=== PATIENT | female | born 1970 | race Caucasian/White ===

== ENCOUNTER 2019-05-09 11:27 | Emergency (ER) | payer BC, SELFPAY ==
[2019-05-09 11:34] VITALS: BP 133/98; PULSE 80; RESP 16; TEMP 36.7; O2SAT 99
--- NOTE | 2019-05-09 11:48 | W.ED.GENAD ---
Discharge Plan Disposition Patient Disposition: HOME Condition: Stable Discharge Details Chief Complaint: EarProblem Clinical Impression: Otitis externa Primary Care Provider: Tiana Gross V ED Provider: Inocencio Ramos Home Meds and New Rx's Prescriptions: New Ciprodex 0.3-0.1 % drops,suspension 4 drp OT BID 7 Days Qty: 7.5 RF: 0 Continued dextroamphetamine-amphetamine 10 mg tablet 10 mg PO BID MDD 2 Qty: 60 RF: 0 multivitamin [Daily Vitamin] 1 EACH tablet 1 ea PO DAILY RF: 0 bupropion HCl [Wellbutrin SR] 150 mg tablet sustained-release 12 hr 150 mg PO DAILY Qty: 30 RF: 6 levothyroxine 50 mcg Tablet 50 mcg PO DAILY RF: 0 Discharge Instructions Instructions: Otitis Externa (ED) Additional Instructions: Please use provided eardrops for the full 7 days and return to emergency department immediately for any new or significant worsening of symptoms. Otherwise follow-up with your primary care provider if not improving Referrals: Tiana Gross MD [Primary Care Provider] - (As needed for reassessment or if not improving) Discharge Data Discharge Date/Time-TO BE ENTERED AT DEPARTURE: 05/09/19 11:58 Medical Decision Making Patient presenting to the emergency department for chief complaint of left ear pain. Patient states 1 week ago she was swimming in the ocean and felt like she got some water in her ear. She has used [id number] eardrops which have not helped. Physical exam shows findings consistent with otitis externa on the left ear. I do not think this is malignant otitis, HEENT exam is otherwise unremarkable patient put on Ciprodex and informed to follow-up with primary care if not improving or return for new or worsening symptoms. After discussion of diagnosis and plan of care patient has no further needs, questions, or concerns and states clear understanding to return to the emergency department for any worsening symptoms. HPI General Mode of arrival: ambulatory. Date/Time Provider Initiated Documentation: 05/09/19 11:39. Limitations to Documentation: no limitations. Information obtained by: patient and RN notes reviewed. History of Present Illness 49 year old F presents to the emergency department with the chief complaint of left ear pain, described as mild and moderate, with intensity rated at 2. Quality is described as aching, and is localized to the left. Patient started experiencing this week(s) (1) and it has been constant. No relieving factors improve symptom(s), Patient notes no other symptoms.. Related Data Home Medications Medication Instructions Recorded Confirmed multivitamin [Daily Vitamin] 1 ea PO DAILY 01/04/13 05/09/19 bupropion HCl 150 mg tablet,12 hr 150 mg PO DAILY #30 tab 10/19/18 05/09/19 sustained-release dextroamphetamine-amphetamine 10 10 mg PO BID #60 tab MDD 2 02/08/19 05/09/19 mg tablet ciprofloxacin-dexamethasone 4 drp OT BID 7 Days #7.5 ml 05/09/19 [Ciprodex] levothyroxine 50 mcg PO DAILY 05/09/19 05/09/19 Previous Rx's Medication Instructions Recorded bupropion HCl 150 mg tablet,12 hr 150 mg PO DAILY #30 tab 10/19/18 sustained-release dextroamphetamine-amphetamine 10 10 mg PO BID #60 tab MDD 2 02/08/19 mg tablet ciprofloxacin-dexamethasone 4 drp OT BID 7 Days #7.5 ml 05/09/19 [Ciprodex] Allergies Allergy/AdvReac Type Severity Reaction Status Date / Time Sulfa (Sulfonamide Allergy Severe Hives Unverified 05/09/19 11:37 Antibiotics) adhesive Allergy Intermediate RASH, Unverified 05/09/19 11:37 REDNESS, ITCHINESS hydrocodone bitartrate AdvReac Severe Nausea Unverified 05/09/19 11:37 [From Vicodin] oxycodone HCl [From Percocet] AdvReac Severe Nausea Unverified 05/09/19 11:37 General Stated Complaint: EarProblem MIKEY: 4 Review of Systems Constitutional Denies fever(s) and Denies headache(s) ENT Denies dizziness, Denies ear discharge, Reports otalgia, Denies facial pain, Denies headache(s) and Denies neck pain Musculoskeletal Denies neck pain Neurologic Denies dizziness and Denies headache(s) COUNTS INCLUDE 234 BEDS AT [facility] Medical History Attention deficit hyperactivity disorder Surgical History Endometrial Ablation (12/14/07) Social History (Reviewed 05/11/19 @ 08:46 by KYARA Aguilar Smoking/Tobacco Use Status: Never Alcohol Intake: current Alcohol Intake frequency: holidays/special occasions only Drug use: Never Do you feel safe at home: Yes Do you feel safe in your relationship?: Yes Exam Const General: cooperative, no acute distress and not ill appearing Orientation: alert, awake and oriented x3 HENMT Head: normal to inspection Ears: TM normal on the right, mastoids normal and EAC abnormal erythema on the left, edema on the left and EAC tenderness on the left; no excessive cerumen and no otic discharge General nose exam: external nose normal Face and sinus: normal facial exam Throat: posterior oropharynx normal, tonsils normal and uvula midline Resp Effort & Inspection: normal respiratory effort, able to speak in complete sentences and no respiratory distress Course Vital Signs Temperature 36.7 C 05/09/19 11:34 Pulse 80 05/09/19 11:34 Respiratory Rate 16 05/09/19 11:34 Blood Pressure 133/98 H 05/09/19 11:34 Pulse Oximetry 99 05/09/19 11:34 Temperature 36.7 C 05/09/19 11:34 Temperature Source Temporal Artery Scan 05/09/19 11:34 Pulse 80 05/09/19 11:34 Respiratory Rate 16 05/09/19 11:34 Respiratory Effort Non-Labored 05/09/19 11:39 Blood Pressure 133/98 H 05/09/19 11:34 Blood Pressure Position Sitting 05/09/19 11:34 Pulse Oximetry 99 05/09/19 11:34 Oxygen Delivery Method Room Air 05/09/19 11:34 Oxygen Flow Rate 0 05/09/19 11:34
[2019-05-09 11:58] VITALS: BP 133/98; PULSE 80; RESP 16; TEMP 36.7; O2SAT 99
== END 2019-05-09 11:58 | disposition home or self-care (01) ==
PROVIDERS: Emergency Provider Nurse Practitioner Family; PCP Family Medicine
DX: H60.502 Unspecified acute noninfective otitis externa, left ear (principal)
CPT/HCPCS: 99283

== ENCOUNTER 2019-08-17 07:59 | Outpatient (CLI) | payer BC, SELFPAY ==
[2019-08-17 09:25] LABS: Calculated LDL 135 mg/dL; Cholesterol 206 mg/dL (50-200); HDL Cholesterol 56 mg/dL (40-60); TSH 1.35 uIU/mL (0.36-3.74); Triglyceride 77 mg/dL (30-150)
[2019-08-17 09:35] LABS: Vitamin D 25 Total 19.5 ng/ml (30-100)
[2019-08-17 10:20] LABS: Hemoglobin A1C 5.7 % (4.5-6.2)
== END 2019-08-17 08:19 ==
PROVIDERS: PCP Family Medicine; Visit Provider Physician Assistant Medical
DX: Z00.00 Encounter for general adult medical examination without abnormal findings (principal); E03.9 Hypothyroidism, unspecified
CPT/HCPCS: 36415; 80061; 82306; 83036; 84443

== ENCOUNTER 2019-12-07 01:44 | Outpatient (CLI) | payer BC, SELFPAY ==
--- NOTE | 2019-12-07 | DI.MAMMO_ITS ---
EXAM: MG MAMMO SCREENING CLINICAL HISTORY: SCREENING, Z12.31, HEALTH MAINTENANCE, Z00.8 TECHNIQUE: Bilateral full field digital CC and MLO mammographic images were obtained with 3D tomosyn thesis and utilizing computer aided detection (CAD). COMPARISON: Available for comparison. FINDINGS: Masses/Architectural Distortion: None seen. Microcalcifications: No suspicious pleomorphic-type are seen. Skin Thickening/Nipple Retraction: None. IMPRESSION: 1. No significant interval change with no specific features of malignancy noted. 2. Unless there is more urgent need, screening mammography is recommended, as per [employer] [employer] guidelines. ACR BI-RAD Category- 1 Negative Breast Density - Category C - Heterogeneously dense The mammogram demonstrates the patient's breast tissue is dense. Dense breast tissue is very common a nd is not abnormal but dense breast tissue can make it harder to find cancer on a mammogram. Also, de nse breast tissue may increase their breast cancer risk. This information about the result of the [facility] mogram report was provided to the patient to raise their awareness. Use this report when you speak wi th the patient about their risks for breast cancer, which includes their family history. At that time , you may recommend for more screening tests (Ultrasound or MRI) as they might be useful based on the ir risk. A negative radiographic report should not delay biopsy if a dominant or clinically suspicious mass is present. Up to ten percent of cancers are not identified on mammography. A negative report may reinforce clinical impression. Adenosis and dense breasts may obscure an underlying neoplasm. False positive reports average 6 to 10%. Patient will receive a letter notifying them of these results.
== END 2019-12-07 02:04 ==
PROVIDERS: PCP Family Medicine; Visit Provider Physician Assistant Medical
DX: Z12.31 Encounter for screening mammogram for malignant neoplasm of breast (principal); Z00.00 Encounter for general adult medical examination without abnormal findings
CPT/HCPCS: 77063; 77067

== ENCOUNTER 2020-09-16 02:11 | Outpatient (CLI) | payer BC, SELFPAY ==
[2020-09-16 09:05] LABS: Calculated LDL 139 mg/dL (<100); Cholesterol 207 mg/dL (<200); HDL Cholesterol 47 mg/dL (40-60); Triglyceride 105 mg/dL (<150)
[2020-09-16 09:16] LABS: Vitamin D 25 Total 21.5 ng/ml (30-100)
[2020-09-16 09:23] LABS: Hemoglobin A1C 5.4 % (<5.7)
== END 2020-09-16 02:31 ==
PROVIDERS: PCP Family Medicine; Visit Provider Physician Assistant Medical
DX: Z00.00 Encounter for general adult medical examination without abnormal findings (principal); R73.03 Prediabetes; E03.9 Hypothyroidism, unspecified; E55.9 Vitamin D deficiency, unspecified; Z13.220 Encounter for screening for lipoid disorders
CPT/HCPCS: 36415; 80061; 82306; 83036; 84443

== ENCOUNTER 2021-10-08 12:12 | Outpatient (REF) | payer BC, SELFPAY ==
[2021-10-08 20:14] LABS: Hemoglobin A1C 5.7 % (<5.7)
[2021-10-08 20:25] LABS: ALT 76 U/L (14-59); AST 40 U/L (15-37); Albumin 4.1 g/dL (3.4-5.0); Alkaline Phosphatase 121 U/L (46-116); BUN 16 mg/dL (7-18); Bilirubin, Total 1.2 mg/dL (0.2-1.0); CREATININE 0.9 mg/dL (0.55-1.02); Calcium 9.1 mg/dL (8.5-10.1); Calculated LDL 168 mg/dL (<100); Chloride 105 mmol/L (98-107); Cholesterol 244 mg/dL (<200); Glucose 95 mg/dL (74-106); HDL Cholesterol 50 mg/dL (40-60); Potassium 4.6 mmol/L (3.5-5.1); Sodium 142 mmol/L (136-145); TSH 1.21 uIU/mL (0.36-3.74); Total Protein 7.7 g/dL (6.4-8.2); Triglyceride 133 mg/dL (<150)
[2021-10-09 00:46] LABS: Vitamin D 25 Total 22.7 ng/mL (30-100)
== END 2021-10-08 12:13 | disposition home or self-care (01) ==
LOC: NCHCN 12:12
PROVIDERS: PCP Family Medicine; Visit Provider Physician Assistant Medical
DX: E03.9 Hypothyroidism, unspecified (principal); E55.9 Vitamin D deficiency, unspecified; R73.03 Prediabetes
CPT/HCPCS: 80053; 80061; 82306; 83036; 84443

== ENCOUNTER 2022-08-28 04:38 | Emergency (ER) | payer BC, SELFPAY ==
--- OUTSIDE RECORDS SUMMARY | 2022-08-28 04:44 | XMS_ITS | Clinical Summary ---
:1970 Author Organization [facility] Address [address] [place] [address] Care Team Providers Name Role Phone Unknown, Provider Primary Care Provider Social History Tobacco Use Types Packs/Day Years Used Date Smoking Tobacco: Never Assessed Sex Assigned at Date Recorded Not on file Plan of Treatment Health Maintenance Due Date Last Done Comments Hepatitis C Screen 1970 COVID-19 Vaccine (#1) 1970 Care Teams Construction Analyst Relationship Specialty Start Date End Date Unknown, Provider, PCP - General 04/17/13
--- OUTSIDE RECORDS SUMMARY | 2022-08-28 04:44 | XMS_ITS | Encounter Summary ---
:1970 Author Organization [facility] Address [address] [place] [address] Care Team Providers Name Role Phone Faustina Palafox MD Primary Care Provider Encounter Details Date Type Department Care Team Description 02/22/2013 Results Only [facility] Margarita Guerrier MD Laboratory Services - [address] [place] [address] [place] [address] [place] [address] [phone] Social History Tobacco Use Types Packs/Day Years Used Date Smoking Tobacco: Never Assessed Sex Assigned at Date Recorded Not on file documented as of this encounter Plan of Treatment Not on filedocumented as of this encounter Procedures Procedure Name Priority Date/Time Associated Diagnosis Comme [facility] SURGICAL PATHOLOGY Routine 02/22/2013 21:36 Resul ts for this EDT procedure are i n the results section. documented in this encounter Results SURGICAL PATHOLOGY (02/22/2013 21:36 EDT) Component Value Ref Test Analysis Performed At [facility] Method Time Signature Pathology SURGICAL PATHOLOGY REPORT HANNAH FONG Report: Reports generated via electronic interface contain irene l data; TK RANGEL however they are lacking the format of the original report. Caution should be taken when reading/interpreting unformatte d reports. Name: ? ANGEL MERINO ? Accession #: ? [id number] ? : ? 1970 (Age: 42) ??F ? Collect Date: ? 02/22/2013 ? Location: ? [facility] ? Receive Date: ? 02/22/2013 ? Provider: MARGARITA GUERRIER MD Copy to: FAUSTINA PALAFOX MD ? Final Pathologic Diagnosis: ? Uterus, supracervical hysterectomy: 1. ?Endometrium: ? - Secretory endometrium. ? 2. ?? Myometrium: ?- No specific pathologic features. 3. ?? Serosa: ?- No specific pathologic features. ?? 4. ?? Fallopian tube: ?- No specific pathologic features. ?? Document reviewed and electronically signed by: KARI AHUMADA MD Report ??Date: 02/24/2013 14:58 By the signature above, the attending physician certifies th at he/she has personally conducted a gross and/or microscopic examin ation of the described specimens and rendered or confirmed the above diagnosis. Specimen(s) Received: ? Supracervical uterus Clinical History: ? Menorrhagia; dysmenorrhea Gross Description: ? Received in formalin labelled Angel Merino and supracervical uterus is a 116 gram aggregate of morcellated uterine tissue. ?? Cervix is not present. There is a 1.5 cm in length by 0.5 cm in diameter segment of proximal fallopian tube without fimbria of indeterminate laterality . ??The serosa is pink-bobo to pink-white and smooth. ??The endometrium is pink -bobo, soft and lush and has a maximum thickness of 0.5 cm. ??The myometrium is pink-bobo an d finely trabeculated. ??No discrete nodules are identified within the myometrium. ??The portion of fallopian tube has bobo-purple, smooth serosa an d a bobo-white cut surface with a pinpoint lumen. ??Uniform Force Captain sections are submitted as follows: BLOCK DUTTON 1, 2 ?Endometrium to myometrium 3 ?Myometrium and serosa 4 ?Cross sections of fallopian tube (L. [place])/mpl End of Report Specimen Anatomical Collection Method Collection Time Receive d Time (Source) Location / / Volume Laterality 02/22/2013 21:36 02/22/2013 EDT 21:36 EDT Margarita Guerrier MD PATHOLOGY ORDERABLES Performing Organization Address City/State/ZIP Code Phon e Number [facility] [address] [place] [address] SERVICES [facility] [address] [place] [address] documented in this encounter Visit Diagnoses Not on filedocumented in this encounter Care Teams Applications Systems Engineer Relationship Specialty Start Date End Date Faustina Palafox MD PCP - General 01/09/11 04/16/13 [facility] [address] [place], [place] [id number] documented as of this encounter
--- OUTSIDE RECORDS SUMMARY | 2022-08-28 04:44 | XMS_ITS | Encounter Summary ---
:1970 Author Organization [facility] Address [address] [place] [address] Care Team Providers Name Role Phone Faustina Palafox MD Primary Care Provider Encounter Details Date Type Department Care Team Description 12/16/2011 Results Only [facility] Faustina Palafox MD [phone] [address] [place], [place] [address] (Wo rk) Social History Tobacco Use Types Packs/Day Years Used Date Smoking Tobacco: Never Assessed Sex Assigned at Date Recorded Not on file documented as of this encounter Plan of Treatment Not on filedocumented as of this encounter Procedures Procedure Name Priority Date/Time Associated Diagnosis Comme nts PAP TEST- RESULT Routine 12/16/2011 0:00 EDT Resu lts for this ONLY procedure are i n the results section. documented in this encounter Results PAP TEST- RESULT ONLY (12/16/2011 0:00 EDT) Component Value Ref Test Analysis Performed At [facility] Method Time Signature Pathology CYTOPATHOLOGY REPORT ANIYA Report: [facility] Reports generated via electronic interface contain original data; however they are lacking the format of the original report. Caution should be taken when reading/interpreting unformatte d reports. Name: ? ANGEL MERINO ? Accession #: ? [id number] ? : ? 1970 (Age: 41) ??F ?Collect Da te: ? 12/16/2011 ? Location: ? [facility] ? Receive Date: ? 12/17/2011 ? Provider: FAUSTINA PALAFOX MD Copy to: ? Final Report SPECIMEN ADEQUACY ? Satisfactory for Evaluation - transformation zone component present GENERAL CATEGORIZATION ? Negative for Intraepithelial Lesion or Malignancy INTERPRETATION ? Reactive cellular angella nges associated with inflammation present (includes repair). Last Menstural Period: mid Nov. Specimen/Source: ??Pap Test, Cervix/Endocervix, ThinPr ep Imaging System with manual evaluation Document reviewed and electronically signed by: ? LOUIE VALVERDE [facility] ? Report ??Date: 12/22/2011 11:50 HPV with Pap Test ? Date Ordered: ? 12/22/2011 ? Status: ?? Eve d Out ?Date Complete: ? 12/24/2011 ? By: ??System Interface ? Date Reported: ? 12/24/2011 ? Interpretation RESULT: Negative for HPV types 16, 18, 31, 33, 35, 39, 45, 5 1, 52, 56, 58, 59, and 68. Comments Document reviewed and electronically signed by: ? System Interface ? Report date: 12/24/2011 By the signature above, the attending physician certifies th at he/she has personally conducted a gross and/or microscopic examin ation of the described specimens and rendered or confirmed the above diagnosis. End of Report Specimen (Source) Anatomical Location Collection Method / Collectio n Time Received Time / Laterality Volume 12/16/2011 12/17/2011 Faustina Palafox MD PATHOLOGY ORDERABLES Performing Organization Address City/State/ZIP Code Phon e Number [facility] [address] [place] [address] SERVICES [facility] [address] [place] [address] documented in this encounter Visit Diagnoses Not on filedocumented in this encounter Care Teams Insurance Sales Agent Relationship Specialty Start Date End Date Faustina Palafox MD PCP - General 01/09/11 04/16/13 [facility] [address] [place], [place] [address] documented as of this encounter
--- OUTSIDE RECORDS SUMMARY | 2022-08-28 04:44 | XMS_ITS | Encounter Summary ---
:1970 Author Organization [facility] Address [address] [place] [address] Care Team Providers Name Role Phone Faustina Grant MD Primary Care Provider Encounter Details Date Type Department Care Team Description 03/23/2011 Results Only [facility] Faustina Grant MD Laboratory Services - [facility] [address] [place], [place] [address] [place] [address] [phone] Social History Tobacco Use Types Packs/Day Years Used Date Smoking Tobacco: Never Assessed Sex Assigned at Date Recorded Not on file documented as of this encounter Plan of Treatment Not on filedocumented as of this encounter Procedures Procedure Name Priority Date/Time Associated Diagnosis Comme [facility] SURGICAL PATHOLOGY Routine 03/23/2011 0:00 EDT Re sults for this procedure are i n the results section. documented in this encounter Results SURGICAL PATHOLOGY (03/23/2011 0:00 EDT) Component Value Ref Test Analysis Performed At [facility] Method Time Signature Pathology SURGICAL PATHOLOGY REPORT ? NANETTE HER Report: Reports generated via electr [employer] interface contain original data; ? TK RANGEL however they are lacking the format of the original report. ? Caution should be taken when reading/interpreting unformatted reports. ? Name: ? ANGEL MERINO A ? Accession #: ? [id number] ? : ? 1970 (Age: 40) ??F ? Collec t Date: ? 03/23/2011 ? Location: ? [facility] ? R eceive Date: ? 03/24/2011 ? Provider: FAUSTINA READY MD ? Copy to: ? Final Pathologic Diagnosis: ? A. ?Skin of leg , left anterior, punch biopsy: ? 1. ?Melanocytic nevus, junctional type, with unusual architectural ? features and mild cytologic atypia. ? - Melanocytic nevus d oes not extend to biopsy edges in the plane of ? sections examined. ?- Melanocytic nevus measu res approximately 0.6 mm to the nearest peripheral ?? edge. ? B. ??Skin of arm, lef t upper, punch biopsy: ? 1. ?? Dermatofibroma. ? Microscopic Description: ? (A) ?The epider mis is hyperplastic with elongate and anastomosing rete ?? ridges. ??There is a circums cribed proliferation of melanocytes within the ? epidermis that consists of n ests and individual cells in a lentiginous pattern. The nests predominate and va ry in size, shape, and spacing. ??Some of the nests ?? bridge between rete ridges. ??Although the individual melanocytes are unevenly ?? spaced in some areas, they s how no tendency toward confluent growth or upward ?? migration. ??The melanocytes are enlarged and show a mild degree of nuclear size and shape variation. ??There is papillary dermal fibroplasia. ??Deeper levels have been examined. ? (B) ?There is i rregular epidermal hyperplasia with basal ? hyperpigmentation. ??Within the dermis, there is a spindle cell proliferation ? accompanied by histiocytes. ??The spindle cells have plump nuclei that vary to a mild degree in size and shap e. ??The proliferation is associated with thick ? bundles of collagen (collag en trapping) and areas of sclerosis. ??(. ? Busch)/mpl ? Document reviewed and electr onically signed by: ? DK BUSCH MD ? Report ??Date: 03/25/2011 16 :28 ? By the signature above, the attending physician certifies that he/she has ? personally conducted a gross and/or microscopic examination of the described ? specimens and rendered or co nfirmed the above diagnosis. ? Specimen(s) Received: ? A. ?Left leg an terior ? B. ? Left upper arm ? Clinical History: ? A ??irregular bordere d macular brown lesion, atypical nevus; B ??appears to ?? be irritated dermatofibroma vs. SK, not sure, cannot exclude SCC clinically ? Gross Description: ? Received in formalin labelled Angel Merino and #1 L leg is a circular punch biopsy of bobo-white sk in measuring 0.5 cm in diameter and 0.3 cm in ? thickness. ??There is an ecc entric 0.4 x 0.3 cm irregular brown macule. ??The ? specimen is bisected and ent irely submitted as (A). ? Received in formalin harjit d Wilber Angel and #2 L upper arm is a circular punch biopsy of bobo-white sk in measuring 0.6 cm in diameter and 0.4 cm in ? thickness. ??There is a cent ral 0.3 x 0.3 by less than 0.1 cm circular, firm, ? bobo-white, crusted papule. ? ?The specimen is bisected and entirely submitted as ?? (B). ??(Fred Dinh/aminata ? End of Report ? Specimen (Source) Anatomical Collection Method Collection Time Re ceived Time Location / / Volume Laterality 03/23/2011 03/24/2011 8:49 EDT Faustina Ready MD PATHOLOGY ORDERABLES Performing Organization Address City/State/ZIP Code Phon e Number [facility] [address] [place] [id number] SERVICES [facility] [address] [place] [address] documented in this encounter Visit Diagnoses Not on filedocumented in this encounter Care Teams Butt Maker Relationship Specialty Start Date End Date Faustina rGant MD PCP - General 01/09/11 04/16/13 [facility] [address] [place], [place] [address] documented as of this encounter
[2022-08-28 04:45] VITALS: BP 150/72; PULSE 103; RESP 22; TEMP 37.2
--- NOTE | 2022-08-28 04:45 | RT.EKG_ITS ---
APPROVED REPORT Exam: Resting ECG Reason for Exam: difficulty breathing Patient Location: E HR:96 bpm ECG Measurements Heart Rate [address] 167 P 65 QRSd 82 QRS 50 QT 334 T -7 QTc 423 Conclusion Sinus rhythm...normal P axis, V-rate 60- 99 Low voltage, precordial leads...precordial leads <1.0mV
--- OUTSIDE RECORDS SUMMARY | 2022-08-28 04:45 | XMS_ITS | Encounter Summary ---
:1970 Author Organization [facility] [place] [address] Care Team Providers Name Role Phone Dana Jiménez Primary Care Provider Reason for Visit Reason Comments Skin Check Referral states: full skin evaluation Consultation (Routine) - Closed Specialty Diagnoses / Procedures Referred By Contact Refer red To Contact Dermatology Diagnoses Full skin Cuco Mccray, DPM [facility] Dermatology [address] [facility] [address] [place] [id number] Referral ID Status Reason Start Date Expiration Date Visits V isits Requested Authorized [id number] Closed Consult, 08/07/2016 08/07/2017 1 1 [facility] Encounter Details Date Type Department Care Team Description 08/13/2016 Office Visit Dermatology at [facility], Skin exam, screening for cancer; Fredrick CRAIG 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 In fact, most skin cancers are found in locations where sun exposure is highest (e.g., face, ears, and hands). Furthermore, UV exposure is associated with skin aging, including wrinkles, brown spots, and leathery skin. Recommendations ?? Generously apply a broad-spectrum water-resistant sunscreen with a Sun Protection Factor (SPF) of30 or more to all exposed skin. ?? Reapply sunscreen every 2 hours, even on cloudy days, and after swimming or sweating. ?? Preferred sunscreens: Sunscreens work by either forming a physical or a chemical barrier to ultraviolet light. Zinc oxide or Titanium dioxide are physical barriers to the sun. We recommend sunscreens that contain at least one physical barrier. Look for these brands: Neutrogena, Blue Lizard, [place] Baby, Festus Myers MD. ?? Wear protective clothing. Long-sleeved shirts, pants, a wide-brimmed hat and sunglasses are all excellent choices. Some companies produce great, breathable SPF clothing (Coolibar, [employer] S[employer]uent[employer], Wednesday Afternoons) ?? Seek shade. The sun's rays are strongest between 10a.m. And 4 p.m. Dry Skin Care Dry skin is more problematic in the winter, when the humidity is lower. Taking measures to maintain the skin's moisture will decrease dryness and itching. Recommendations ?? Bathe in lukewarm water. Wash the skin gently (avoid vigorous scrubbing); use Dove or CeraVe soapto wash dirty areas. Avoid harsh soaps such as Ethiopian Spring, Ivory, or Dial as these can be drying. ?? Immediately after bathing, apply a bland, preferably fragrance-free moisturizer to your skin. Ointments work better than creams, which work better than lotions. Look for the following brands: Vaseline 100% petroleum jelly, Vanicream, Neutrogena, CeraVe, Cetaphil, Aveeno, Lubriderm, or Eucerin. ?? For itchy areas, you can apply hydrocortisone 1% cream (oxfk-wav-iybcnlb product) for 1-2 weeks. Do not use this medication on your face. Skin Cancer screening The incidence of skin cancer has increased dramatically in the past 20 years. The most common skin cancer types include basal cell carcinoma and squamous cell carcinoma. These often look like new moles, and they might be tender, scaly, or prone to bleeding. The most deadly form of skin cancer is melanoma, and it can affect people of all ages and skin types. Recommendations ?? We recommend performing a skin self-examination monthly to become familiar with your moles. This will help you to detect new or changing moles earlier. ?? Remember the ABCDE's of melanoma: ?? Asymmetry - Melanoma tends to grow in an asymmetric (uneven) fashion ?? Border - The border in melanoma tends to be uneven or jagged ?? Color - Melanomas often have different colors (e.g., dark brown, black, red) ?? Diameter - Look for moles that are larger than 0.6 cm (the size of a pencil eraser) ?? Evolution - This is perhaps the most important feature. Any mole that is rapidly growing or changing should be evaluated. documented in this encounter Progress Notes oRsanne Araujo W - 08/13/2016 10:15 AM EST Images from the original note were not included. DERMATOLOGY - NEW PATIENT NOTE Date of service: 08/13/2016 Haritha Merino : 1970 Dermatology Resident Note: Rosanne Araujo M.D. Chief Complaint: 2nd opinion on melanoma in situ HPI: Haritha Merino is a 46 y.o. female. This is a new patient to me. Seen in consultation at the requestof Cuco Khan DPM - Assistant Facility Manager, specifically for the evaluation and management of the above problem. She recently had a biopsy done on a small dark spot on the left great toe that showed melanoma insitu. The spot had been there for about 2 years, but it was changing, prompting her wire insulator to perform a biopsy. She discussed treatment options with the Dr. Khan, who discussed the need for a 5mmmargin of uninvolved skin to adequately treat the MIS. His clinical note states, Because the lesionpractically abuts the nail plate it will be difficult to resect sufficient soft tissue to ensure thelesion has been cleared. I did indicate that we can avulse the nailplate and ablate as needed. An Alternative is to disarticulate the great toe at the IPJ level. Haritha is wondering if she needs to have a disfiguring surgery in order to treat the MIS or if she can be treated with MOHS. She is also wondering if she needs to have a PET scan. She denies a personal or family history of pancreatic or ovarian cancer. No one in her family has had melanoma. Her aunt and great aunt both had breast cancer. She also presents today for a full skin exam. She states concern about one lesion on the right upperarm. Present for about one month. Asymptomatic, but does not seem to be healing well. Denies any other lesions of concern today, nothing bleeding on its own, tender, scaling, growing, orchanging. Relevant Medical History: Yes/No If yes (date, subtype, location, treatment) Melanoma Yes - left hallux - Melanoma in situ Dysplastic nevi No SCC No BCC No AK No Eczema/Psoriasis No Immunosuppression or Malignancy No History of blistering sunburn ? Probably Other No Procedure Screening Questions: Yes/No If Yes, details Defibrillator/Pacemaker No Artificial Joints No Heart Valves No Blood Thinners No Prophylactic Antibiotics No How to reach with results Home # Okay to leave message Relevant Family History: Yes/No If yes, who (mom/dad/sibling/child) Melanoma No SCC No BCC No Psoriasis or Eczema No Other No Maternal aunt and great aunt with breast cancer. Medications: No current outpatient prescriptions on file prior to visit. No current facility-administered medications on file prior to visit. Allergies: Allergies Allergen Reactions ??? Sulfa (Sulfonamide Antibiotics) Hives ??? 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 Skin Type: III. Patient was asked to disrobe to the level of comfort. Examination of the head - including the scalp,face, ears, nose, lips, tongue, oral mucosa - neck, chest, abdomen, back, axillae, buttocks, pubic area, upper and lower extremities, including the nail plates, was performed. Photographs obtained with patient's permission: Pertinent Exam Findings/Assessment/Plan: 1. 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 On examination today is a well healing biopsy site on the left medial dorsal hallux 3-4 mm proximal to the nailfold. No evidence of residual pigment on dermoscopy. I reviewed the pathology report, confirming MIS. Report states there is no involvement of the dermis. We discussed that 5mm is an appropriate margin to treat MIS. Based upon the clinical documentation, I do not know the size of the original MIS, and whether the biopsy was an excisional biopsy or an incisional biopsy. However, amputation of the hallux is likely not necessary, and I think it might be possible to avoid avulsing the nail and going into the matrix. I would value the opinion of Dr. Espinoza, our Mohs surgeon, regarding the depth for the excision, the necessity to go into the nail matrix, and whether MOHS is an option given the location. I attempted to speak with him during the visit however he is out of town. I will talk with Dr. Espinoza upon his return and call Ms. Merino with my final recommendation. 2. Benign melanocytic nevi: Approximately sixty 2-4 mm brown macules scattered on the back, chest, upper and lower extremities. One nevus on the central back is slightly darker, but with regular pigment network under dermoscopy. See photos above. Will monitor this spot. RTC in 6 months for FBSE. Instructed to call for questions, concerns. I am documenting this encounter acting as the scribe for and in the presence of Dr. Araujo. Dottie Henley, CORPORATE REAL ESTATE MANAGER I performed the above scribed service and agree with the accuracy of the documentation in this encounter. Rosanne Araujo M.D. Dermatology Resident [facility] Patient seen and evaluated with staff chemical equipment controller: Sarah Christensen MD Section of Dermatology [facility] Sarah Christensen MD - 08/13/2016 10:15 AM EST I directly supervised Dr. Rosanne Araujo during this office visit. Dr. Araujo presented the history and physical exam to me. I then saw and examined this patient with Dr. Araujo. We reviewed the history and pertinent details and I confirmed the physical findings. I agree with the details of the history and physical exam as documented in Dr. Araujos note. 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
--- OUTSIDE RECORDS SUMMARY | 2022-08-28 04:45 | XMS_ITS | Encounter Summary ---
:1970 Author Organization [facility] [place] [address] Care Team Providers Name Role Phone Dana Jiménez Primary Care Provider Reason for Visit Reason Comments Follow Up Surgery FTSG to left big toe Encounter Details Date Type Department Care Team Description 09/21/2016 Clinical Support Plastic Surgery at [facility] [place] [address] Social History Tobacco Use Types Packs/Day Years Used Date Smoking Tobacco: Never Smokeless Tobacco: Never Sex Assigned at Date Recorded Not on file documented as of this encounter Patient Instructions Patient InstructionsBriana Izaguirre RN - 09/21/2016 2:00 PM EST 1. Change toe dressing every other day for 2 weeks more. Aquaphor, adaptic, dry gauze and coban wrap. 2. Aquaphor to thigh incision line. Scar massage to thigh incision line starting in 2 weeks. 3. May return to work next Wednesday09/30/16. 4. May get wet in the shower in 1 week. -SCAR MASSAGE TECHNIQUE: to begin 4-6 weeks following surgery What is a scar? When an injury occurs, the body immediately begins to repair itself & the area becomes swollen & sore. Eventually small collagen fibers form, becoming a solid tissue that results in a scar. This scar will continue to change in appearance for 1-2 years. Ideally, a scar is smooth & flat, blending in with the surrounding skin. However, some scars may become highly visible & unattractive d ue to factors such as your age, scar location & size, nutrition, genetics, or infection. A hypertrophic scar occurs when there is an excess production of collagen tissue that is elevated but remains within the wound boundaries. The scar is tense, red, & can be associated with itching & tenderness. A hypertrophic scar can be ordinary (usually stabilizes in 3 months & may even get smaller and smoother) or keloid. The keloid scar invades nearby tissue that was not part of the original wound, tends to enlarge even after 6 months & does not get softer. Will scar massage make my scars disappear? Nothing can make scars disappear. However, massaging the scar assists the body in breaking down the scar tissue to give it a flatter, softer, appearance. Massage also mobilizes the scar, preventing it from adhering to underlying tissue, tendons, & nerves. You can make the greatest difference in the appearance of the scar if you massage it in the first 3 months. What should I use on my scars? You will hear many recommendations. This clinic finds that it is the massage itself that reduces thescar & not necessarily the choice of ointments or creams. We do discourage the use of Vitamin E oil, however, due to studies that have reported scar inflammation & deterioration. How do I massage my scars? Generously apply the lotion or cream into the scar 3-4 times a day for 8 weeks on new scars, and 3-4times per day for 3 to 6 months on existing scars. Using your finger, apply pressure to the scar in a crosswise & circular direction, bearing down as hard as tolerated. Remember to protect your scar from the sun, especially in the first 6-12 months, by using a moisturizer with sunblock and wearing a physical barrier (ie: a hat) when possible documented in this encounter Progress Notes Briana Izaguirre RN - 09/21/2016 2:00 PM EST Images from the original note were not included. Reason for Visit: Postoperative Evaluation s/p Moh's repair left great toe with FTSG 09/11/16 for follow up visit. Subjective:I've had no pain and never took anything for pain. Objective:Dressing removed from left great toe. Graft with 100% take, no redness, swelling or drainage. Incision line left thigh donor site, intact and well approximated. Pt seen by Dr. Bruce. Redressedwith Aquaphor, adaptic, 3X3 gauze and coban wrap. Instructed to change every other day. Aquaphor to be applied to left thigh incision line. Complications: none Assessment: No signs of infection, or excessive swelling Plan: Reviewed post op instructions, including activity limitations, increase protein in the diet, signs of infection and correct phone numbers to call us for concerns. May return to work next week the th per Dr. Bruce. Supplies given:adaptic and coban VNA:n/a documented in this encounter Plan of Treatment Not on filedocumented as of this encounter Visit Diagnoses Diagnosis Surgery follow-up Follow-up examination, following unspeci fied surgery documented in this encounter Care Teams Radio Producer Relationship Specialty Start Date End Date Dana Jiménez PA PCP - General 01/30/15 05/21/20 [address] [place] [address] documented as of this encounter
--- OUTSIDE RECORDS SUMMARY | 2022-08-28 04:45 | XMS_ITS | Encounter Summary ---
:1970 Author Organization [facility] [place] [address] Care Team Providers Name Role Phone Dana Jiménez Primary Care Provider Reason for Visit Auth/Cert Specialty Diagnoses / Procedures Referred By Contact Refer red To Contact Diagnoses Melanoma in situ, unspecified melanoma in situ great toe Procedures PRO FULL THICK GRFT HEAD, FAC, HAND <20SQC PRO SPLIT GRFT, HEAD, FAC, HAND, FEET <100SQCM PRO FORM SKIN PEDICLE FLAP FACE, GEN, HAND FTSG, FREE, W/ CLOSURE DONOR SITE, 20 SQ CM OR LESS, FEET Referral ID Status Reason Start Date Expiration Date Visits Requ ested Visits Authorized [id number] 1 1 Encounter Details Date Type Department Care Team Description 09/11/2016 Anesthesia Event Outpatient Surgery Inez Katz MD [facility] [place] [address] [place] [address] [phone] Anesthesia Record Procedure Summary Procedure Name Responsible Anesthesia Start Anesthesia Stop Time Anesthesiologist Time SHU, SEVERINO W/ Aisha Katz MD 09/11/16 1122 09/11/16 121 0 CLOSURE DONOR SITE, 20 SQ CM OR LESS, FEET (VU 10.41) (Left: Foot) Events Date Time Event Comment 09/11/2016 1122 Start 1123 1125 AN Verify 1125 An Start Data 1129 An Induction 1130 An Intubation 1132 Anesthesia Ready 1202 Extubation/LMA Out 1206 an stop data 1210 Recovery or ICU Handoff Patient care was transferred to the destination unit staff after review of the patient's medica l history, current anesthetic/surgi jerrica status and plan, according to the Provider Handoff Checklist. 1210 Stop Name Total Midazolam 2 mg fentaNYL 100 mcg IV Lidocaine 50 mg Propofol 400 mg Ondansetron 8 mg Dexamethasone 8 mg Propofol INF 495.5 mg ceFAZolin (ANCEF) 2 gram/50 mL infusion 2 g lactated ringers infusion 1,000 mL 750 mL Agents Name O2 Air N2O Sevoflurane (et) Blood No blood administrations on file. Lines, Drains, and Airways Type Details Placement Removal Incision 09/11/16; first toe; 09/11/16 0000 by Nguyen, 05/05 06/25 1715 by 06/01/22 (LDA cleanup SHELIA Garza Di erdre L utility RA#[id number]); 1715 (LDA cleanup utility RA#[id number]) Incision 09/11/16; thigh; 06/01/22 09/11/16 0000 by Nguyen, 06/01/22 1715 by (LDA cleanup utility SHELIA Garza Die rdre L RA#[id number]); 1715 (LDA cleanup utility RA#[id number]) PIV 09/11/16; 1104; metacarpal 09/11/16 1104 by Madina crowell, 09/11/16 1310 by Car, vein (top of hand), right; SHELIA Grady, RN [id number] catheter system; 20 gauge, 1 in length; 0; 09/11/16; 1310 Supraglottic Mask Ventilation: Not 09/11/16 1130 by 09/11/16 1202 by Attempted (0); LMA Type: Rhonda Davis CRNA T Rhonda powers CRNA iGel; LMA Size: 3; Inserted by: Rhonda L Ticknor GERMAN PROFESSOR documented in this encounter Social History Tobacco Use Types Packs/Day Years Used Date Smoking Tobacco: Never Smokeless Tobacco: Never Sex Assigned at Date Recorded Not on file documented as of this encounter OR Notes Anesthesia Postprocedure Evaluation - Aisha Katz MD - 09/11/2016 1:13 PM EST [facility] [place] Department of Anesthesiology Post-procedure Note Patient: Haritha Merino Procedure Summary Date Anesthesia Start Anesthesia Stop Room / Location 09/11/16 1122 1210 [facility] OR [address] [place] [address] [facility] Procedure Diagnosis Surgeon Responsible Provider FTSG, FREE, W/ CLOSURE DONOR SITE, 20 SQ CM OR LESS, FEET (Left Foot) (melanoma in situ great toe) Aldo Bruce MD Welch, Marnie B, MD All Anesthesia Providers: Anesthesiologist: Aisha Kazt MD GERMAN PROFESSOR: Rhonda Davis CRNA Last (1hr) Vitals: BP 119/74 (09/11/16 1222) Temp Pulse 85 (09/11/16 1222) Resp 18 (09/11/16 1222) SpO2 96 % (09/11/16 1242) Patient Location: PACU/[facility] Level of Consciousness: Awake and Alert Pain Management: Satisfactory Analgesia PONV: None Cardiovascular Status: At Baseline and Hemodynamically Stable Respiratory Status: At Baseline and Room Air Postoperative Fluid Status: Intravascular EUvolemia Possible Anesthetic Complications: NONE apparent at time of evaluation Final Primary Anesthesia Type: General (The anesthetic type performed was the same as planned.) Comments: No issues post op AISHA KATZ MD Anesthesia Preprocedure Evaluation - Aisha Katz MD - 09/10/2016 5:06 PM EST Pre-Anesthesia Evaluation for: Haritha Merino a 46 y.o. female. Procedure(s): FTSG, FREE, W/ CLOSURE DONOR SITE, 20 SQ CM OR LESS, FEET SPLIT THICKNESS SKIN SPLIT GRAFT,100SQ CM OR LESS, FEET FLAP, PEDICLE,W OR W/O TRANSFER, FEET Patient Active Problem List Diagnosis ??? Melanoma in situ No past medical history on file. No past surgical history on file. Social History Substance Use Topics ??? Smoking status: Never Smoker ??? Smokeless tobacco: Never Used ??? Alcohol use Not on file History Drug Use Not on file Allergies Allergen Reactions ??? Sulfa (Sulfonamide Antibiotics) Hives ??? Tape 1X5yd [Adhesive Tape] Dermatitis irritation Medications: MAR and/or home medications have been reviewed. Physical Exam: There were no vitals filed for this visit. There is no height or weight on file to calculate BMI. Airway Assessment: Mallampati: III TM distance: >3 FB Neck ROM: full Cardiovascular Assessment: Rhythm: regular Pulmonary Assessment: breath sounds clear to auscultation Dental Assessment: Misc Assessment: IV access: Peripheral line Anesthesia Plan: ASA 2 general, with a(n) intravenous induction 46 y/o here for FTSG w/ closure , possible STSG , flap, onto melanoma in situ great toe, s/p Moh's reconstruction PMH: ADHD, depression, obesity PSH: Hysterectomy, lap che, no issues with anesthesia Plan : General LMA The patient was informed of the risks of anesthesia, and consent was obtained. The risks of anesthesia include, but are not limited to, PONV, pain, sore throat, and other rare but serious complicationssuch as major organ damage, allergies, blood transfusions, intraoperative awareness, and dental/lip trauma. Region - Other Informed Consent: Anesthetic plan and risks discussed with patient. Plan discussed with GERMAN PROFESSOR. [facility] Staff Note documented in this encounter Plan of Treatment Not on filedocumented as of this encounter Visit Diagnoses Not on filedocumented in this encounter Administered Medications Inactive Administered Medications - up to 3 most recent administrations Medication Order MAR Action Action Date Dose Rate Site ceFAZolin (ANCEF) 2 gram/50 mL Given 09/11/2016 11:22 AM EST 2 g infusion 1 dose, Starting on Wed09/11/16 at 1112, Until Wed09/11/16 at 1122, FREEMAN FRIEND: cabinet override dexamethasone (DECADRON) injection Given 09/11/2016 11:37 AM EST 8 mg PRN, Starting on Wed09/11/16 at 1131, Until Wed09/11/16 at 1210, Anesthesia Intra-op, Routine fentaNYL 50 mcg/mL multi-dose injection Given 09/11/2016 11:38 AM EST 100 mcg PRN, Starting on Wed09/11/16 at 1138, Until Wed09/11/16 at 1210, Pain, Anesthesia Intra-op, Routine lidocaine (PF) (XYLOCAINE) 100 mg/5 mL (2 %) Given 06/2016 11:28 AM EST 50 mg injection PRN, Starting on Wed09/11/16 at 1128, Until Wed09/11/16 at 1210, Anesthesia Intra-op, Routine midazolam (PF) (VERSED) 1 mg/mL multi-dose Given 09/11/2016 11:4 3 AM EST 2 mg injection PRN, Starting on Wed09/11/16 at 1143, Until Wed09/11/16 at 1210, Sleep, Anesthesia Intra-op, Routine ondansetron (ZOFRAN) injection Given 09/11/2016 11:58 AM EST 8 mg PRN, Starting on Wed09/11/16 at 1158, Until Wed09/11/16 at 1210, Nausea, Anesthesia Intra-op, Routine propofol (DIPRIVAN) 10 mg/mL bolus injection Given 06/2016 11:35 AM EST 100 mg (Anesthesia) PRN, Starting on Wed09/11/16 at 1128, Until Wed09/11/16 at 1210, Anesthesia Intra-op Given 09/11/2016 11:31 AM EST 100 mg Given 09/11/2016 11:28 AM EST 200 mg propofol (DIPRIVAN) Rate/Dose 09/11/2016 11:54 50 mcg/kg/min 32.7 mL /hr infusion Change AM EST CONTINUOUS PRN, Starting on Wed09/11/16 at 1129, Until Wed09/11/16 at 1210, Anesthesia Intra-op, Routine Rate/Dose Change 09/11/2016 11:36 AM EST 200 mcg/kg/min 130.7 mL/hr New Bag 09/11/2016 11:29 AM EST 100 mcg/kg/min 65.3 mL/hr documented in this encounter Care Teams Senior Accounting Analyst Relationship Specialty Start Date End Date Dana Jiménez PA PCP - General 01/30/15 05/21/20 [address] [place] [address] documented as of this encounter
--- OUTSIDE RECORDS SUMMARY | 2022-08-28 04:45 | XMS_ITS | Encounter Summary ---
:1970 Author Organization [facility] Address [address] [place] [address] Care Team Providers Name Role Phone Unknown, Provider Primary Care Provider Encounter Details Date Type Department Care Team Description 08/22/2001 Results Only [facility] - Dea Conner MD conversion [address] [place] [phone] (Wo rk) Social History Tobacco Use Types Packs/Day Years Used Date Smoking Tobacco: Never Assessed Sex Assigned at Date Recorded Not on file documented as of this encounter Plan of Treatment Not on filedocumented as of this encounter Procedures Procedure Name Priority Date/Time Associated Diagnosis Comme [facility] CYTOPATHOLOGY Routine 08/22/2001 0:00 EST Results for this procedure are i n the results section . documented in this encounter Results CYTOPATHOLOGY (08/22/2001 0:00 EST) Component Value Ref Test Analysis Performed At [facility] Pathology CYTOPATHOLOGY REPORT ANIYA Report: [facility] Reports generated via electronic interface contain original data; however they are lacking the format of the original report. Caution should be taken when reading/interpreting unformatte d reports. Name: ? ANGEL MERINO ? Accession #: ? [id number] : ? 1970 (Age: 31) ??F ?Collect Date: ? 08/22/2001 Location: ? [facility] ? Receive Date: ? 08/24/2001 Provider: ?DEA CALIX MD Copy to: ? Specimen/Source: ?ThinPrep Pap Test, Cervix/Endoce rvix Last Menstrual Period: ? 08/02/01 Hormonal/Contraceptive Status: ? Yes: Ovcon 35 ? SPECIMEN ADEQUACY ? Satisfactory for evaluation. GENERAL CATEGORIZATION ? Benign Cellular Changes DESCRIPTIVE DIAGNOSIS ? Predominance of coccobacilli present consistent with shift in vaginal avila. ? Document reviewed and electronically signed by: ? KARLEY Clinton(ASCP) ? Report Date: ??08/31/2001 09:40 End of Report Specimen (Source) Anatomical Location Collection Method / Collectio n Time Received Time / Laterality Volume 08/22/2001 08/24/2001 Dea Calix MD PATHOLOGY ORDERABLES Performing Organization Address City/State/ZIP Code Phon e Number [facility] [address] [place] [address] [facility] [address] [place] [address] documented in this encounter Visit Diagnoses Not on filedocumented in this encounter Care Teams Power Shovel Mechanic Relationship Specialty Start Date End Date Unknown, Provider, PCP - General 02/06/09 01/08/11 documented as of this encounter
--- OUTSIDE RECORDS SUMMARY | 2022-08-28 04:45 | XMS_ITS | Encounter Summary ---
:1970 Author Organization [facility] [place] [address] Care Team Providers Name Role Phone Dana Jiménez Primary Care Provider Encounter Details Date Type Department Care Team Description 09/01/2016 External Results Medical Records Provider, [place] [phone] Social History Tobacco Use Types Packs/Day Years Used Date Smoking Tobacco: Never Smokeless Tobacco: Never Sex Assigned at Date Recorded Not on file documented as of this encounter Plan of Treatment Not on filedocumented as of this encounter Procedures Procedure Name Priority Date/Time Associated Diagnosis Comme nts SURGICAL PATHOLOGY Routine 09/01/2016 Results f or this SCAN procedure are i n the results section . documented in this encounter Results Scan Doc: Surgical Pathology (09/01/2016) Narrative This result has an attachment that is no t available. Broderick Espinoza MD MEDIA MGR SCAN EXT ORDR/RSLT documented in this encounter Visit Diagnoses Not on filedocumented in this encounter Care Teams Buyer Broker Relationship Specialty Start Date End Date Dana Jiménez PA PCP - General 01/30/15 05/21/20 [address] [place] [address] documented as of this encounter
--- OUTSIDE RECORDS SUMMARY | 2022-08-28 04:45 | XMS_ITS | Encounter Summary ---
:1970 Author Organization [facility] [place] [address] Care Team Providers Name Role Phone Dana Jiménez Primary Care Provider Reason for Visit Reason Comments Skin Check Encounter Details Date Type Department Care Team Description 03/18/2018 Office Visit Dermatology at [facility] Saul Maldonado MD History of melanoma in situ; [facility] Multiple benign nevi; [address] Sheri dias; [facility] Dermatofibroma [phone] [address]-DERMATOLOGY [phone] [place], [place] [address] Social History Tobacco Use Types Packs/Day Years Used Date Smoking Tobacco: Never Smokeless Tobacco: Never Sex Assigned at Date Recorded Not on file documented as of this encounter [facility] Saul Maldonado - 03/18/2018 1:30 PM EDT Images from the original note were not included. DERMATOLOGY - ESTABLISHED PATIENT FOLLOW-UP Date of service: 03/18/2018 Haritha Merino : 1970, 47 y.o. Chief Complaint: Chief Complaint Patient presents with ??? Skin Check HPI: Haritha Merino is a 47 y.o. female last seen by on 09/07/2017. Ms. Merino returns today for a full skin cancer screening. Patient has no concerns today, no spots that are changing in color, size or are tender. She states that the left great toe has healed well, nochanges in the scar that she can appreciate. She has noticed worsening spider veins on her legs that are concerning to her. 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 Family History: Melanoma: none Maternal aunt and great aunt with breast cancer. ? Social/Occupational History:?? 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 multivitamin (THERAGRAN) Tablet Take 1 tablet by mouth daily. ??? buPROPion (WELLBUTRIN SR OR ZYBAN) 150 mg Tablet Sustained Release ??? dextroamphetamine-amphetamine (ADDERALL) 10 mg Tablet take 1 tablet by mouth three times a day 0 No current facility-administered medications for this visit. Allergies: Allergies Allergen Reactions ??? Sulfa (Sulfonamide Antibiotics) Hives ??? Tape 1X5yd [Adhesive Tape] Dermatitis irritation Review of Systems: - General: Feels well. - Skin: No other skin concerns. Examination: - Constitutional: Patient was alert, well-appearing and in no noticeable distress. - Skin: Skin examination of the scalp, face, ears, neck, back, chest, abdomen, right and left upper extremities, right and left lower extremities, hands, feet, and buttocks was normal with the exception of the findings listed below. Genitalia not examined. Diagnosis/Skin findings/Assessment/Plan: 1. Benign appearing nevi - Scattered: Multiple, 0.3-0.5cm, medium-brown, evenly- pigmented macules and papules. - Reassurance, discussed importance of ABCDE's and monthly self exams 2. 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 No pigment appreciated at this time. - NER; patient reassured - Continue to monitor. 3. Telangiectasias and venulatectasias: on bilateral lower extremities, scattered superficial vessels - Discussed with patient that treatment/removal would be considered cosmetic, therefore insurance would not cover it and patient would be expected to pay out of pocket, in full, at time of service. - Discussed treatment with sclerotherapy. Quoted $250. Scheduled upon exiting. 4. Dermatofibroma - firm pink papule with peripheral pigmentation on the right medial lower leg. - Reviewed benign nature of these skin lesions. No treatment necessary. Has been removed before. - Patient opted for no treatment at this time. RTC for sclerotherapy in 2 months, scheduled upon exiting. Otherwise, 1 year for FSE, h/o melanoma. Note initiated by Haritha Galvez CMA. Clinical scribe: Elizabeth Stratton - I am documenting this encounter acting as the scribe for and in the presence of Saul Maldonado MD I performed the above scribed service and agree with the accuracy of the documentation in this encounter. Reviewed and signed by: Saul Maldonado MD Resident in Dermatology [facility] Patient seen and evaluated with staff allied health teacher: John De Santiago MD Section of Dermatology [facility] John De Santiago III, MD - 03/18/2018 1:30 PM EDT I directly supervised Dr. Aristeo Maldonado during this office visit. He presented the history and physical exam to me. I then saw and examined this patient with Dr. Maldonado. We reviewed the history and pertinent details and I confirmed the physical findings. I agree with the details of the history and physical exam as documented in Dr. Maldonado's note. JOHN DE SANTIAGO III, MD Staff Physician documented in this encounter Plan of Treatment Not on filedocumented as of this encounter Visit Diagnoses Diagnosis History of melanoma in situ Personal history of malignant melanoma o f skin Multiple benign nevi Benign neoplasm of skin, site unspecifie d Spider veins Nevus, non-neoplastic Dermatofibroma Benign neoplasm of skin, site unspecifie d documented in this encounter Care Teams Ambulance Assistant Relationship Specialty Start Date End Date Dana Jiménez PA PCP - General 01/30/15 05/21/20 [address] [place] [address] documented as of this encounter
--- OUTSIDE RECORDS SUMMARY | 2022-08-28 04:45 | XMS_ITS | Encounter Summary ---
:1970 Author Organization [facility] [place] [address] Care Team Providers Name Role Phone Dana Jiménez Primary Care Provider Reason for Visit Consultation (Routine) - Closed Specialty Diagnoses / Procedures Referred By Contact Refer red To Contact Endocrinology Diagnoses HYPOTHYROIDISM Dana Jiménez, [facility] [place] [address] [phone] [place] [address] Referral ID Status Reason Start Date Expiration Date Visits V isits Requested Authorized [id number] Closed Consult, 04/22/2018 04/22/2019 1 1 [facility] Encounter Details Date Type Department Care Team Description 07/12/2018 Office Visit Endocrinology at [facility] Ector Avery MD [facility] [place] [address] Hypothyroidism, [facility] Jacqui Sauer MD [facility] [place] [address] unspecified type [place] [id number] Social History Tobacco Use Types Packs/Day Years Used Date Smoking Tobacco: Never Smokeless Tobacco: Never Sex Assigned at Date Recorded Not on file documented as of this encounter Last Filed Vital Signs Vital Sign Reading Time Taken Comments Blood Pressure 118/80 07/12/2018 9:25 AM EDT Pulse 85 07/12/2018 9:25 AM EDT Temperature - - Respiratory Rate - - Oxygen Saturation - - Inhaled Oxygen Concentration - - Weight 116.7 kg (257 lb 4.8 oz) 07/12/2018 9:25 AM EDT Height 170.2 cm (5' 7) 07/12/2018 9:25 AM EDT Body Mass Index 40.3 07/12/2018 9:25 AM EDT documented in this encounter [facility] Jacqui Sauer MD - 07/12/2018 9:30 AM EDT ENDOCRINOLOGY NEW PATIENT APPOINTMENT Patient Name: Haritha Merino Date of Appointment: 07/12/2018 ID: Haritha Merino is a 48 yoa F with PMH of anxiety, ADHD, and elevated BMI who presents to Endocrinology clinic 07/12/18 for evaluation of hypothyroidism. History of Presenting Illness: Haritha Merino states that she has had monitoring of her thyroid function every 2-3 years because she has a strong family history of thyroid disease. During her most recent TFTs 04/2018, she was noted to have elevated TSH (4.6) with low Free T4 of 0.76. She was started on levothyroxine 50 mcg daily atthat time, but requested referral to Endocrinology for more specialized testing and to discuss transition to Synthroid (multiple family members have required transition to levothyroxine to synthroid). She is taking levothyroxine at night 3-4 hours after her last meal (nightly because her wastold by his Steam Boiler Fireman to take it then) Regarding symptoms of hypothyroidism, she notes 50 lbs weight gain over the last 2 years, with 25 lbs weight loss since initiation of levothyroxine and initiation of keto diet. She also had intoleranceot cold,which has improved since initiation of levothyroxine. Thyroid review of symptoms: Irritability/nervousness - No Muscle weakness/tremors -??No Weight loss??- No Sleep disturbances??-??No Vision/eye problems -??No Heat sensitivity -??No Hot flashes - No Diarrhea - No Increased appetite -??No Diaphoresis - No Palpitations -??No Menstrual irregularities -??hx of hysterectomy, but no oophorectomy Fatigue - No Forgetfulness -??No Constipation - No Intolerance to cold -??Yes ? Compressive symptoms/Nodule symptom review: Globus sensation -??denies Difficulty swallowing -??denies Difficulty breathing -??denies Hoarseness or voice change -??denies Family history of thyroid disease - Maternal grandmother (hyperthyroid), father, mother, and paternal (hypothyroidism) ROS: Constitutional: No tiredness, recent weight change, no heat or cold intolerance Endocrine: No thyroid problems. No abnormal sweating or flushing. No galactorrhea or breast tenderness. Normal sexual desire. Integument: No excessive hair growth, balding, acne or oily skin. No ulcerations. No easily bruising. Neurological: No headache or weakness. No seizure, fainting or dizziness Eyes: No recent vision changes ENT: No dysphagia, dental issues, nasal congestion+-attributes to allergies Cardiovascular: No chest pain or palpitations Respiratory: No cough, wheezing, shortness of breath GI: Normal appetite. No nausea, vomiting, diarrhea, constipation : No frequent urinary tract infections or polyuria Musculoskeletal: No joint aches, muscle pain. No back pain Psychiatric: No depression, anxiety Past Medical History: Patient Active Problem List Diagnosis Code ??? Melanoma in situ D03.9 ??? Surgery follow-up Z09 ??? Macromastia N62 ??? Intertrigo L30.4 Anxiety ADHD Past Surgical Hx: Tubal ligation C section x 2 Tonsillectomy Adenoidectomy Hysterectomy Cholecystectomy [place] teeth extraction Melanoma excised with skin graft on toe Medications: Bupropion SR 150 mg daily Dextroamp-Amphetamine 10 mg BID Levothyroxine 50 mcg daily Allergies: Allergies Allergen Reactions ??? Sulfa (Sulfonamide Antibiotics) Hives ??? Tape 1X5yd [Adhesive Tape] Dermatitis irritation Vitals Last value Temperature Heart Rate Heart Rate: 85 Blood Pressure BP: 118/80 Respiratory Rate Body mass index is 40.3 kg/(m^2). Physical Exam: General appearance: pleasant female patient sitting comfortably in chair, elevated BMI HEENT: EOMI, no lid lag, stare, proptosis Neck: No thyromegaly, no thyroid nodules, or cervical LAD appreciated CVS: RRR, normal +S1, S2. no added sounds or murmurs Pulm: Breathing comfortably on RA, clear to auscultation BL Extremities: no edema Neuro: Strength 5/5 in UE and LE bilaterally, KJ 1+ bilaterally, no tremor Skin: healthy appearing, no rashes Pertinent Laboratory Findings: 04/14/18 TSH 4.59 (0.358-3.74) Free T4 0.76 (0.76-1.46) TSH 1.62 (07/12/18)-on 50 mcg levothyroxine daily Assessment: Haritha Merino is a 48 yoa F with PMH of anxiety, ADHD, and elevated BMI who presents to Endocrinology clinic 07/12/18 for evaluation of hypothyroidism that was detected on screening given strong familyhistory of thyroid disease. Her main symptoms of hypothyroidism were cold intolerance and weight gain, which have improved since initiation of levothyroxine 50 mcg daily 3 months ago. She has lost 25 lbs in the last 6 weeks after starting the keto diet, and is hopeful she will be able to lose more weight. TSH was repeated today to evaluate adequacy of 50 mcg levothyroxine dosing, and was normal at 1.62. In the setting of obesity and hypothyroidism, recommend maintaining TSH in lower half of normal range (TSH<2.5), so she can be continued on current dosing, but will transition to synthroid prescription. We discussed today that if she is successful with additional weight loss,she should have repeat TSH performed (eg. Every 15-20 lbs) to determine if levothyroxine dosing can be decreased (similarly if she gains weight, will need to re-evaluate if increase in dose required). As Mrs. Merino was interested in more specialized testing today we discussed that TSH and free T4 are routinely used forthe diagnosis of hypothyroidism, and that hypothyroidism most likely developed due to Jackelyn's disease, though testing to confirm this would not change advisor. It was recommended that she continu e to follow with her PCP regarding synthroid dosing/TSH monitoring, but to feel free to contact the Endocrinology clinic if she has any new questions or concerns. Plan: -Maintain TSH in lower half of normal range (ie. Goal TSH<2.5) in setting of obesity and weight loss efforts -As TSH 1.62 today, plan to continue 50 mcg LT4, but will transition to synthroid -Transition to Synthroid dosing in the morning with water, 30 minutes minimum before breakfast with supplements/vitamins taken in the evening -Encouraged follow up TSH if weight changes by 15 lbs +/- to ensure dosing adjusted if required -Follow up with PCP for ongoing TSH monitoring/synthroid prescriptions No plan for Endocrinology follow up at this time, but encouraged her to contact the clinic if she has any questions or concern. The patient was seen and the case was discussed with Dr. Silva of Endocrinology. Jacqui Sauer PGY 4 Endocrinology Pager [phone] Ector Silva MD - 07/12/2018 9:30 AM EDT I have seen the patient and reviewed Dr Sauer's history and I agree with the details as written.The assessment and plan were formulated in discussion with me and I agree with them as documented. Agree that given normal TSH, her dose of levothyroxine is appropriate. It is ok to switch to Synthroid given strong patient preference. TSH recheck is necessary if patient gains or loses 15 or more lb.For morbid obesity, patient has made significant strides in weight loss through dietary and lifestyle optimization and LT4 was likely beneficial. Consider referral to [facility] in the future for continued assistance with weight loss Ector Silva MD Beater Tenderregistered nurse fetal Endocrinology [facility] documented in this encounter Plan of Treatment Not on filedocumented as of this encounter Procedures Procedure Name Priority Date/Time Associated Diagnosis Comme nts TSH Routine 07/12/2018 10:45 AM Hypothyroidism, Resul ts for this EDT unspecified type procedure a re in the results section. documented in this encounter Results TSH (07/12/2018 10:45 AM EDT) P athologist Signature TSH 1.62 0.27 - 4.20 [facility] mlU/ML [facility] Specimen Anatomical Collection Method Collection Time Receive d Time (Source) Location / / Volume Laterality Blood specimen 07/12/2018 10:45 8 (specimen) AM EDT 10:51 AM EDT Resulting Agency Comment Spec In Lab Ector Silva MD CHEMISTRY ORDERABLES Performing Organization Address City/State/ZIP Code Phon e Number [place] [phone] [facility] [address] documented in this encounter Visit Diagnoses Diagnosis Hypothyroidism, unspecified type documented in this encounter Care Teams Wildlife Control Operator Relationship Specialty Start Date End Date Dana Jiménez PA PCP - General 01/30/15 05/21/20 [address] [place] [address] documented as of this encounter
--- OUTSIDE RECORDS SUMMARY | 2022-08-28 04:45 | XMS_ITS | Encounter Summary ---
:1970 Author Organization [facility] [place] [address] Care Team Providers Name Role Phone Dana Jiménez Primary Care Provider Reason for Visit Reason Comments Advice Only big left toe melanoma Consultation (Routine) - Specialty Diagnoses / Procedures Referred By Contact Refer red To Contact Plastic Surgery Procedures Broderick Espinoza MD [facility] 4m MELANOMA IN SITU - [facility] TER [facility] [place] [address] [place] [address] Referral ID Status Reason Start Date Expiration Date Visits V isits Requested Authorized [id number] 08/18/2016 08/18/2017 1 1 Encounter Details Date Type Department Care Team Description 09/02/2016 Office Visit Plastic Surgery at Aldo Bruce MD Melanoma in situ, [facility] unspecified site [facility] PLASTIC SURGERY [place] [phone] Social History Tobacco Use Types Packs/Day Years Used Date Smoking Tobacco: Never Smokeless Tobacco: Never Sex Assigned at Date Recorded Not on file documented as of this encounter Progress Notes Aldo Bruce MD - 09/02/2016 3:00 PM EST Images from the original note were not included. Plastic Surgery Consultation Note ALDO BRUCE MD PCP:NKECHI Khan CC: Melanoma in situ left hallux HPI: Haritha Merino is a 46 y.o. female, here in consultation at the request of Dr. Espinoza for evaluation and possible reconstruction following Mohs excision. She is alone for todays visit. The lesion was initially reported to her Communication Manager. The lesion was biopsied revealing melanoma in situ. The patient was then referred to Dr. Espinoza for consideration of Mohs excision. The patient presents today to discuss reconstructive options of the post-excisional defect. The patient denies similar lesions elsewhere on the body. 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 No past medical history on file. No past surgical history on file. Current Outpatient Prescriptions on File Prior to Visit Medication Sig Dispense Refill ??? buPROPion (WELLBUTRIN SR OR ZYBAN) 150 mg Tablet Sustained Release ??? dextroamphetamine-amphetamine (ADDERALL) 10 mg Tablet take 1 tablet by mouth three times a day 0 No current facility-administered medications on file prior to visit. Allergies Allergen Reactions ??? Sulfa (Sulfonamide Antibiotics) Hives ??? Tape 1X5yd [Adhesive Tape] Dermatitis irritation Soc Hx: Social History Social History ??? Marital status: Spouse name: N/A ??? Number of children: N/A ??? Years of education: N/A Occupational History ??? Not on file. Social History Main Topics ??? Smoking status: Never Smoker ??? Smokeless tobacco: Never Used ??? Alcohol use Not on file ??? Drug use: Not on file ??? Sexual activity: Not on file Other Topics Concern ??? Not on file Social History Narrative ??? No narrative on file ROS: System Constitutional neg Eye neg ENT neg CV neg Resp neg GI neg neg Skin Melanoma in situ, left hallux Allergy neg Endocrine neg Neurologic neg Musculoskeletal neg Lymph neg Psych neg Y N All other systems reviewed and negative. x Examination: Gen: No acute distress, fluent, follows HEENT: Extra ocular movements intact. Neuro: motor and sensory exam grossly normal, alert oriented follows Pathology: Left hallux melanoma in situ Impression: Haritha Merino presents with melanoma in situ, diagnosed on pathology, requiring excision and reconstruction. She is scheduled for Mohs excision. I discussed the nature of this lesion with the patient, educating her about the options for wound closure. We discussed the treatment options indetail including primary closure, local flap closure including forehead flap, pedicled nasolabial flap, FTSG and composite auricular graft. We discussed that the recommended treatment depends on the extent of the excision and her aesthetic concerns. We discussed the risks of excision including infection, scar, bleeding, asymmetry, deformity, and the need for further surgery. We reviewed her post operative care and restrictions, including at least 2 weeks off from work. The patient wishes to proceed.Surgical consent was signed. Surgeon: Teo Duration: 1 hour Timeframe: coordinated Coordinated with: Dr. Espinoza Procedure: reconstruction of mohs defect 74065, [id number], [id number], Surgical site: hallux Side: left Anesthesia: General Follow up: 7-10 Days NSO PAT: No Bismark, Lou Dudley, am acting as scribe for Dr. Bruce. All work documented was performed by Dr. Bruce. ???I performed the above scribed service and agree with the accuracy of the note?? ALDO BRUCE MD documented in this encounter Plan of Treatment Not on filedocumented as of this encounter Procedures Procedure Name Priority Date/Time Associated Diagnosis Comme nts FTSG, FREE, W/ CLOSURE Routine 09/02/2016 3:37 PM EST DONOR SITE, 20 SQ CM OR LESS, FEET documented in this encounter Visit Diagnoses Diagnosis Melanoma in situ, unspecified site documented in this encounter Care Teams Sybase Developer Relationship Specialty Start Date End Date Dana Jiménez PA PCP - General 01/30/15 05/21/20 [address] [place] [address] documented as of this encounter
--- OUTSIDE RECORDS SUMMARY | 2022-08-28 04:45 | XMS_ITS | Encounter Summary ---
:1970 Author Organization [facility] Address [address] [place] [address] Care Team Providers Name Role Phone Unknown, Provider Primary Care Provider Encounter Details Date Type Department Care Team Description 08/05/2000 Results Only [facility] - Dea Conner MD conversion [address] [place] [phone] (Wo rk) Social History Tobacco Use Types Packs/Day Years Used Date Smoking Tobacco: Never Assessed Sex Assigned at Date Recorded Not on file documented as of this encounter Plan of Treatment Not on filedocumented as of this encounter Procedures Procedure Name Priority Date/Time Associated Diagnosis Comme [facility] CYTOPATHOLOGY Routine 08/05/2000 0:00 EST Results for this procedure are i n the results section . documented in this encounter Results CYTOPATHOLOGY (08/05/2000 0:00 EST) Component Value Ref Test Analysis Performed At [facility] Pathology CYTOPATHOLOGY REPORT ANIYA Report: [facility] Reports generated via electronic interface contain original data; however they are lacking the format of the original report. Caution should be taken when reading/interpreting unformatte d reports. Name: ? ANGEL MERINO ? Accession #: ? [id number] : ? 1970 (Age: 30) ??F ?Collect Date: ? 08/05/2000 Location: ? [facility] ? Receive Date: ? 08/10/2000 Provider: ?DEA CALIX MD Copy to: ? Specimen/Source: ?Conventional Pap Test, Cervix/En docervix Last Menstrual Period: ? 08/03/00 Hormonal/Contraceptive Status: ? Yes: Ovcon 35. ? SPECIMEN ADEQUACY ? Satisfactory for evaluation. GENERAL CATEGORIZATION ? Within Normal Limits ? Document reviewed and electronically signed by: ? Le Hooper, ??CT(ASCP) ? Report Date: ??08/18/2000 11:33 End of Report Specimen (Source) Anatomical Location Collection Method / Collectio n Time Received Time / Laterality Volume 08/05/2000 08/10/2000 Dea Calix MD PATHOLOGY ORDERABLES Performing Organization Address City/State/ZIP Code Phon e Number [facility] [address] [place] [address] SERVICES [facility] [address] [place] [address] documented in this encounter Visit Diagnoses Not on filedocumented in this encounter Care Teams Continuous Miner Relationship Specialty Start Date End Date Unknown, Provider, PCP - General 02/06/09 01/08/11 documented as of this encounter
--- OUTSIDE RECORDS SUMMARY | 2022-08-28 04:45 | XMS_ITS | Encounter Summary ---
:1970 Author Organization [facility] Address [address] [place] [address] Care Team Providers Name Role Phone Unknown, Provider Primary Care Provider Encounter Details Date Type Department Care Team Description 01/07/2011 Results Only [facility] Margariat Guerrier MD Laboratory Services - [address] [place] [address] [address] [facility] [place] [address] [phone] Social History Tobacco Use Types Packs/Day Years Used Date Smoking Tobacco: Never Assessed Sex Assigned at Date Recorded Not on file documented as of this encounter Plan of Treatment Not on filedocumented as of this encounter Procedures Procedure Name Priority Date/Time Associated Diagnosis Comme [facility] SURGICAL PATHOLOGY Routine 01/07/2011 0:00 EDT Re sults for this procedure are i n the results section. documented in this encounter Results SURGICAL PATHOLOGY (01/07/2011 0:00 EDT) Component Value Ref Test Analysis Performed Pathologis t Range Method Time At [facility] SURGICAL PATHOLOGY REPORT ? NANETTE HER Report: Reports generated via electr Tangible Cryptography interface contain original data; ? TK RANGEL however they are lacking the format of the original report. ? Caution should be taken when reading/interpreting unformatted reports. ? Name: ? CHARMAINE, ANGEL ? Accession #: ? [id number] ? : ? 1970 (Age: 40) ??F ? Collec t Date: ? 01/07/2011 ? Location: ? [facility] ? R eceive Date: ? 01/07/2011 ? Provider: MARGARITA LINDA MD ? Copy to: FAUSTINA READY MD ? Final Pathologic Diagnosis: ? Endometrium, biopsy: ? 1. ?Fragments o f benign endometrial tissue with mucinous metaplasia. No cytologic atypia. ? 2. ? Fragments of benign endocervical tissue. No cytologic atypia. ? Comment: ? The CD10 confirms john t several of the tissue fragments are of endometrial ?? origin, although much of the specimen has features more consistent with ? endocervical sampling. This case is seen in consultation with Dr. Briana Joseph ?? who concurs. ? Immunohistochemical s taining was performed on this case to further ? characterize the lesion. ??P ositive and negative controls stained appropriately. ? Block ?Antibody (Clone) ? Result ?CD10 (56C6, L ab Vision) ? - Positive in the endometrial stroma ? NOTE: ??One or more of the reagents used in immunohistochemical testing in this case may not have been clear ed or approved by the U.S. Food and Drug ? Administration (FDA). ??The FDA has determined that such clearance or approval is not necessary. ??These tests are used for clinical purposes. ??They should not be regarded as investigational or for research. ??These reagents' ??performance ? characteristics have been de termined by [facility]. ??This ? laboratory is certified unde r the Clinical Laboratory Improvement Amendments of 1988 (CLIA-88) as qualified to perform high complexity clinical laboratory ? testing. ? (Dr. Preciado)/mms ? Document reviewed and electr onically signed by: ? MANNY S MIKAYLA MD ? Report ??Date: 01/12/2011 16 :07 ? By the signature above, the attending physician certifies that he/she has ? personally conducted a gross and/or microscopic examination of the described ? specimens and rendered or co nfirmed the above diagnosis. ? Specimen(s) Received: ? Endometrial bx ? Clinical History: ? Menorrhagia, dysmenor matt, endometrial ablation 3 yrs ago; LMP: 12/22/10; ?? BTL ??for control; LMP : 12/22/10 ? Gross Description: ? Received in formalin labelled Angel Merino and endometrial biopsy is a 1.7 x 1.7 x 0.5 cm aggregate of red-brown soft tissue and mucus. ??The specimen ?? is submitted entirely in one cassette following filtration. ??(Chago Bey/yoselyng ? End of Report ? Specimen (Source) Anatomical Collection Method Collection Time Re ceived Time Location / / Volume Laterality 01/07/2011 01/07/2011 8:17 EDT Margarita Guerrier MD PATHOLOGY ORDERABLES Performing Organization Address City/State/[facility] Phon e Number [facility] [address] [place] [address] SERVICES [facility] [address] [place] [address] documented in this encounter Visit Diagnoses Not on filedocumented in this encounter Care Teams Dry Box Operator Relationship Specialty Start Date End Date Unknown, Provider, PCP - General 02/06/09 01/08/11 documented as of this encounter
--- OUTSIDE RECORDS SUMMARY | 2022-08-28 04:45 | XMS_ITS | Encounter Summary ---
:1970 Author Organization [facility] Address [address] [place] [address] Care Team Providers Name Role Phone Unknown, Provider Primary Care Provider Encounter Details Date Type Department Care Team Description 12/17/2006 Results Only [facility] - Rosanne Guerrier MD Maple conversion [address] [place] [address] [place] [address] [phone] Social History Tobacco Use Types Packs/Day Years Used Date Smoking Tobacco: Never Assessed Sex Assigned at Date Recorded Not on file documented as of this encounter Plan of Treatment Not on filedocumented as of this encounter Procedures Procedure Name Priority Date/Time Associated Diagnosis Comme [facility] SURGICAL PATHOLOGY Routine 12/17/2006 0:00 EDT Re sults for this procedure are i n the results section. documented in this encounter Results SURGICAL PATHOLOGY (12/17/2006 0:00 EDT) Component Value Ref Test Analysis Performed At [facility] Method Time [facility] Pathology SURGICAL PATHOLOGY REPORT HANNAH FONG Report: Reports generated via electronic interface contain origina l data; TK RANGEL however they are lacking the format of the original report. Caution should be taken when reading/interpreting unformatte d reports. Name: ? ANGEL MERINO ? Accession #: ? [id number] ? : ? 1970 (Age: 36) ??F ? Collect Date: ? 12/17/2006 ? Location: ? [facility] ? Receive Date: ? 12/20/2006 ? Provider: MARGARITA GUERRIER MD Copy to: SHIRA FARAH MD ? Final Pathologic Diagnosis: A. ?Fallopian tube, left, segmental excision: 1. ?Full cross section of fallopian tube presen t. 2. ? Mild chronic salpingitis. B. ?Fallopian tube, right, segmental excision: 1. ?Full cross section of fallopian tube presen t. Document reviewed and electronically signed by: Ricky Jackson MD Report ??Date: 12/22/2006 20:03 By the signature above, the attending physician certifies th at he/she has personally conducted a gross and/or microscopic examin ation of the described specimens and rendered or confirmed the above diagnosis. Specimen(s) Received: A. ?Left fallopian tube (#1) B. ? Right fallopian tube (#2) Clinical History: ? Repeat ; multiparity, desires sterilization Gross Description: ? Received in formalin labelled Wilber and lef t fallopian tube is a portion of fallopian tube that is 1.5 cm in length and 0.6 cm in diameter. The central portion has a bobo to violaceous, smooth and glistening serosa. Sections reveal a bobo-white wall that averages 0.2 cm and a pin point lumen. Two cross sections are submitted as (A). Received in formalin labelled Wilber a nd Rt tube fallopian is a portion of fallopian tube that is 2.0 x 0.9 cm. The center 1.2 cm seg ment has a bobo to violaceous glistening serosa . Sections reveal a bobo-white wall that averages 0.2 cm and a pinpoint lumen. Two cross sections are submitted as (B). (Dr. Church)/mikael End of Report Specimen (Source) Anatomical Collection Method Collection Time Re ceived Time Location / / Volume Laterality 12/17/2006 12/20/2006 15:4 1 EDT Margarita Guerrier MD PATHOLOGY ORDERABLES Performing Organization Address City/State/ZIP Code Phon e Number [facility] [address] [place] [phone] SERVICES [facility] [address] [place] [address] documented in this encounter Visit Diagnoses Not on filedocumented in this encounter Care Teams Geospatial Information Technologist Relationship Specialty Start Date End Date Unknown, Provider, PCP - General 02/06/09 01/08/11 documented as of this encounter
--- OUTSIDE RECORDS SUMMARY | 2022-08-28 04:45 | XMS_ITS | Encounter Summary ---
:1970 Author Organization [facility] [place] [address] Care Team Providers Name Role Phone Dana Jiménez Primary Care Provider Encounter Details Date Type Department Care Team Description 08/17/2016 Telephone Dermatology at [facility] Rosanne Araujo MD [address] [facility] [place] [address] [facility] [phone] [place], [place] [address] (Wo rk) Social History Tobacco Use Types Packs/Day Years Used Date Smoking Tobacco: Never Smokeless Tobacco: Never Sex Assigned at Date Recorded Not on file documented as of this encounter Miscellaneous Notes Telephone Encounter - Rosanne Araujo - 08/17/2016 1:41 PM EST I spoke with Ms. Merino about my discussion with Dr. Espinoza regarding the treatment options for the MIS on her great toe. From the clinical photographs, Dr. Espinoza feels that the location of the MIS is proximal enough that the nail does not need to be avulsed. He thinks a staged excision would be best. I explained this to Ms. Merino and she understood and wants to proceed with a staged excision with Dr. Espinoza. I explained that Dr. Espinoza has limited availability, but I would try to arrange for her to be treated within the next 1-[address] Espinoza's schedule is full, I will send a referral to plastic surgery for a staged excision. Ms. Merino was agreeable with this plan. documented in this encounter Plan of Treatment Not on filedocumented as of this encounter Visit Diagnoses Diagnosis Melanoma in situ, unspecified site documented in this encounter Care Teams Agricultural Commodities Grader Relationship Specialty Start Date End Date Dana Jiménez PA PCP - General 01/30/15 05/21/20 [address] [place] [address] documented as of this encounter
--- OUTSIDE RECORDS SUMMARY | 2022-08-28 04:45 | XMS_ITS | Encounter Summary ---
:1970 Author Organization [facility] [place] [address] Care Team Providers Name Role Phone Dana Jiménez Primary Care Provider Encounter Details Date Type Department Care Team Description 09/08/2016 Telephone Dermatology at [facility] Chaparrita Urbina RN [address] [place] [address] Social History Tobacco Use Types Packs/Day Years Used Date Smoking Tobacco: Never Smokeless Tobacco: Never Sex Assigned at Date Recorded Not on file documented as of this encounter Miscellaneous Notes Telephone Encounter - Chaparrita Neff LPN - 09/14/2016 7:46 AM EST Chart opened in error documented in this encounter Plan of Treatment Not on filedocumented as of this encounter Visit Diagnoses Not on filedocumented in this encounter Care Teams Aws Solution Architect Relationship Specialty Start Date End Date Dana Jiménez PA PCP - General 01/30/15 05/21/20 [address] [place], [place] [phone] documented as of this encounter
--- OUTSIDE RECORDS SUMMARY | 2022-08-28 04:45 | XMS_ITS | Encounter Summary ---
:1970 Author Organization [facility] [place] [address] Care Team Providers Name Role Phone Dana [...] Expiration Date Visits Requ ested Visits Authorized [id number] 1 1 Encounter Details Date Type Department Care Team Description 09/11/2016 Surgery Outpatient Surgery Aldo Bruce MD FTSG, FREE, W/ CLOSURE Center [facility] DONOR SITE, 20 SQ CM OR [facility] DR FRANZ, FEET (WRVU 10.41) [facility] [place] [address] [place] [address] [phone] Social History Tobacco Use Types Packs/Day Years Used Date Smoking Tobacco: Never Smokeless Tobacco: Never Sex Assigned at Date Recorded Not on file documented as of this encounter Last Filed Vital Signs Vital Sign Reading Time Taken Comments Blood Pressure 119/74 09/11/2016 12:22 PM EST Pulse 85 09/11/2016 12:22 PM EST Temperature 36.1 ??C (97 ??F) 09/11/2016 12:12 PM EST Respiratory Rate 18 09/11/2016 12:22 PM EST Oxygen Saturation 96% 09/11/2016 12:42 PM EST Inhaled Oxygen Concentration - - Weight 108.9 kg (240 lb) 09/11/2016 10:49 AM EST Height 170.2 cm (5' 7) 09/11/2016 10:49 AM EST Body Mass Index 37.59 09/11/2016 10:49 AM EST documented in this encounter Discharge Instructions Discharge InstructionsTerrie Hyatt RN - 09/11/2016 11:22 AM EST General Anesthesia Discharge Instructions Go home and rest. You may be sleepy for several hours. Take it easy as sudden position changes may cause nausea and/or dizziness. Use caution on stairs. Follow a light to regular diet as tolerated today. If nausea occurs, start with clear liquids, and progress slowly to a regular diet. Do not drive, operate machinery, drink alcoholic beverages or make any legal decisions after having general anesthesia. The medications given change your reaction time and alter your judgement. IV site -- slight redness is normal, you can use warm compresses. If tenderness and redness increases or foul drainage occurs, please contact your M.D. Patients who have had endotracheal tubes/LMA (tubes used by the anesthesia staff to ensure a safe airway during your operation) may have a sore throat. This is normal and cold liquids or soothing lozengers will help ease this discomfort. Narcotic pain medications can cause constipation, please ask the surgeons office what they recommendfor prevention of this. Some non-pharmaceutical means of constipation prevention include increasing intake of fluids, eating more fruits and vegetables as well as fruit juices. If you are uncomfortable and/or unable to urinate within 8 hours of discharge and it is before 5 pm,call your physician. If it is after 5pm go to the closest emergency room or call the hospital slide forming machine operator at [phone] and ask for physician electronics test engineer covering for your physician. Questions or problems after 5pm or on a weekend: Call the [facility] slide forming machine operator at and ask for the physician electronics test engineer covering for your doctor. At 11 am you received 1000 mg of acetaminophen- Your next dose should not be taken before 8 hours have passed. Next dose not before- 7 pm You should not take more than a total of 3000 mg of acetaminophen in a 24 hour period. Patient InstructionsJess Lombardi PA - 09/11/2016 11:10 AM EST DISCHARGE INSTRUCTIONS WOUND CARE: Keep dressing clean dry and intact. You must avoid sunlight exposure to your incision(s). Do not use any over the counter ointments on the incisions postoperatively unless instructed by yourprovider. SHOWERING: OK to shower in 2 days. Do not submerge your surgical site under water until cleared by your provider. ACTIVITIES: Minimize contact to affected area(s). No heavy lifting until seen by MD. No driving or operating heavy machinery when on narcotics. Minimize walking to expedite healing. DIET: Slowly advance diet as tolerated to a regular healthy diet. DO???S AND DON???TS FOR THE NEXT [address] a motor vehicle for 1-2 weeks or until you can handle the steering wheel without discomfort. Do not drive while taking your narcotic. Do not smoke or be around anyone who smokes for 2 weeks after your surgery this is because smoking delays healing and can lead to infection. Do not lift more than 5 pounds or bend at the waist to lift for 6 weeks. Do not participate in strenuous activities such as running or aerobics for 6 weeks. Protect your incisions from the sun for 6 months to 1 year. CALL MD IF: Your incision opens up. You have signs of infection that include: a temperature over 100.4F or 38C, redness or warmth spreading away from the incision lines after the first 48 hours, you notice a yellow pus-like or foul smelling drainage larger than dime size from the incisions or drainage sites, you feel increased pain thatis not relived by your pain medicine, you have increasing swelling. During office hours: Wednesday - Wednesday 8am-5pm call [phone]. On weekends or after hours call [phone] and ask the slide forming machine operator to page the plastic surgery resident electronics test engineer. FOLLOW UP: Future Appointments and Orders Future Appointments Provider Department Dept Phone 09/21/2016 2:00 PM NURSE, PLASTIC SURGERY Plastic Surgery [phone] MEDICATIONS: Your Medications UNREVIEWED medications - Discuss With Your Provider Dose Details buPROPion 150 mg Tbsr Commonly known as: WELLBUTRIN SR or ZYBAN Refills: 0 dextroamphetamine-amphetamine 10 mg Tab Commonly known as: ADDERALL take 1 tablet by mouth three times a day Refills: 0 NARCOTICS: You may be given a prescription for a narcotic medication immediately following your surgery. Narcotics are prescribed for short-term use to help treat your pain. Surgical pain requiring narcotics willusually be greatly decreased 2-3 days after surgery & should be mild to absent by 10-14 days. We will only prescribe a narcotic pain reliever for 2 weeks following your surgery. This will be determined by your surgeon. Narcotics do not reduce inflammation and it is inflammation that is usually a major cause of pain after surgery. Narcotics have many side effects such as constipation, lightheadedness, dizziness, sedation, confusion, nausea and vomiting. Driving and the use of alcohol are not recommended while you are using narcotic pain medications. Non-steroidal anti-inflammatories (NSAIDS) such as aspirin, Aleve and ibuprofen (Advil, Motrin) are medications that reduce pain and inflammation. If you find your pain is not adequately controlled with the prescribed dose of your narcotic pain medication, NSAIDS may be used 48 hours after surgery with your narcotic to help alleviate the pain caused by inflammation. As you progress through your post-operative period, your pain should decrease and the use of narcotic medications should be less necessary. To reduce your chance of side effects, it is recommended thatyou save your narcotic medication for nighttime use and switch to NSAIDS or Acetaminophen (Tylenol) during the day. Alternative means of pain relief such as rest and relaxation, positioning, as well as decreasing stimulants such as coffee, tea, soft drinks, and nicotine may also help to alleviate pain. If you continue to experience significant pain 4-5 days after your procedure, it may be necessary jessica re-evaluated by your physician. PRESCRIPTION RENEWALS: Renewal requests should be called in to our prescription line at [phone]. Narcotic renewals may be requested from 8am-4pm Wednesday through Wednesday. Due to patient safety, narcotic renewals will not be honored after hours or on weekends. It is best to make your request 2-3 daysbefore you run out of your medication as it will take at least 24 hours for physician approval and nurse follow-up. Note that certain prescriptions, such as Percocet, Oxycodone, Vicodin, & Hydrocodone can not be called in to a pharmacy and must be picked up by the patient. CONTACT INFORMATION: During office hours: Wednesday through Wednesday 8 am to 5 pm Call [phone] On weekends or after hours: Call [phone] and ask the slide forming machine operator to page the Plastic Surgery Resident electronics test engineer. Post-Op Plan: - Follow up in: 7-10 days with Mely/nurse - Wound Check - Suture removal - Dressings: remove dressings (leave steri strips) documented in this encounter Medications at Time of Discharge Medication Sig Dispensed Refills Start Date End Date buPROPion (WELLBUTRIN SR 0 08/12/2016 OR ZYBAN) 150 mg Tablet Sustained Release dextroamphetamine-amphetam take 1 tablet by 0 ine (ADDERALL) 10 mg mouth two times a day Tablet documented as of this encounter H&P Notes Jess Lombardi PA - 09/11/2016 10:58 AM EST COMPLETE HISTORY AND PHYSICAL for PROCEDURE Haritha Merino Age: 46 y.o. History of Present Illness: Haritha Merino is a 46 y.o. 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 Espinoza. Here today for reconstruction of post mohs defect. Here with her . No past medical history on file. No family history on file. No past surgical history on file. Social History Social History ??? Marital status: [...] ??? Not on file Social History Narrative Recent Hospitalizations: denies Review of Systems: Constitutional: denies fever, chills Skin: denies any any new growths/rashes/pruritus Resp: denies Cough, sputum CV: denies chest pain,SOB MS: denies joint pain, swelling, erythema Physical Exam: GENERAL: well developed, well nourished, appears stated age and in no acute distress, resting comfortably LUNGS: breath sounds clear to auscultation b/l, no wheezing COR: regular rate and rhythm, no murmurs/rubs/gallops EXTREMITIES: Left hallux with defect 1 x 1.5 cm Assessment & Plan: Haritha Merino is a 46 y.o. female patient to OR today for left hallux defectclosure s/p mohs excision. After extensive discussion of the risks, benefits, and alteratives of surgical intervention, the patient consented to proceed with surgery. IV antibiotics ordered Jess Lombardi PA-C Plastic Surgery Pager [phone] documented in this encounter Miscellaneous Notes Op Note - Aldo Bruce MD - 09/11/2016 12:14 PM EST [facility] Operative Note Patient Name: Haritha Merino : [id number] MR#: [id number] Case Date: 09/11/2016 Surgeon: Surgeon(s) and Role: * Aldo Bruce MD - Primary * Jess Lombardi PA - Physician Waist Cutter Preoperative diagnosis: melanoma in situ great toe, left Postoperative diagnosis: melanoma in situ great toe, left PREOPERATIVE DIAGNOSIS: Melanoma in situ great toe, left, following Mohs surgical defect. POSTOPERATIVE DIAGNOSIS: Melanoma in situ great toe, left, following Mohs surgical defect. Total defect 1.2 x 1.4 cm just proximal to the nail bed. PROCEDURE: A full-thickness skin graft harvested from the left upper thigh and direct donor site closure, total of 1.5 x 1.5 cm with elliptical closure. Procedure(s): FTSG, FREE, W/ CLOSURE DONOR SITE, 20 SQ CM OR LESS, FEET Anesthesia: General Estimated Blood Loss: 0cc Disposition: awakened from anesthesia, extubated and taken to the recovery room in a stable condition, having suffered no apparent untoward event. Condition: doing well without problems HPI/Surgical Indications: CLARIFICATION NEEDED: Blank DATE OF SURGERY: 09/11/16 ATTENDING: Dr Aldo Bruce SILVER HOLLOWARE ASSEMBLER: NKECHI Escalante ANESTHESIA: General LMA. PREPARATION: Betadine. BLOOD LOSS: 0 INDICATION FOR SURGERY: Patient had a melanoma in situ of the left great toe. She had excision by Dr Broderick Espinoza yesterday. She presented for repair. Risks, benefits, and complications including potential for infection, skin graft loss, and contracture, loss of graft, and subsequent need for further surgery revision, identification of additional tumor subsequently, and all other issues discussed with the patient. Donor site deformity was also discussed. PROCEDURE: Following adequate induction of general LMA by Anesthesia patient prepped in the usual sterile fashion. The donor site was debrided and cleansed . This measured 1.2 x 1.4 cm. A skin graft measuring 1.5 x 1.5 cm was identified. This was taken full thickness. Donor site was then closed in 2 layers using a 5-0 PDS followed by 5-0 Monocryl and Dermabond. This was sterilely dressed, and the Tegaderm was placed over this. Then the skin graft was defatted completely. Then inset into position. The edges were trimmed to fit the defect and then circumferentially sutured with 5-0 plain suture. This was pie-crusted in the midline, and then 5-0 chromic was used to tack this in the midline. Xeroform and bolster dressing was placed over this with a digital dressing. Then a 0.25% Marcaine, a total of 2 mL, was placed for assistance with discomfort. Patient tolerated the procedure well. There were no problems or complications. Anesthesia was reversed. She was taken to the Recovery Room in stable condition after sterile dressing was applied. Attestation: Case Date: 09/11/2016 I performed this procedure without the involvement of a resident. ALDO BRUCE MD 09/11/2016 Brief Op Note - Jess Lombardi PA - 09/11/2016 12:03 PM EST Brief Operative Note Patient Name: Haritha Merino : [id number] MR#: [id number] Case Date: 09/11/2016 Surgeon: Surgeon(s) and Role: * Aldo Bruce MD - Primary * Jess Lombardi PA - Physician Waist Cutter Preoperative diagnosis: melanoma in situ great toe Postoperative diagnosis: melanoma in situ great toe Procedure(s): FTSG, FREE, W/ CLOSURE DONOR SITE, 20 SQ CM OR LESS, FEET Anesthesia: General Findings: FTSG from L anterior thigh to L anterior hallux Complications: none Fluids: 650cc Estimated Blood Loss: * No values recorded between 09/11/2016 11:40 AM and 09/11/2016 12:02 PM * Drains: none Disposition: awakened from anesthesia, extubated and taken to the recovery room in a stable condition, having suffered no apparent untoward event. Condition: doing well without problems (Please see the Surgical Encounter Summary for any Implant and Specimen details pertinent to this patient.) Infection Bundle used? No Post-Op Plan: - Follow up in: 7-10 days with Mely/nurse - Wound Check - leave steris documented in this encounter Plan of Treatment Not on filedocumented as of this encounter Procedures Procedure Name Priority Date/Time Associated Diagnosis Comme nts FTSG, FREE, W/ CLOSURE 09/11/2016 11:24 AM melanoma in situ great DONOR SITE, 20 SQ CM EST toe OR LESS, FEET (WRVU 10.41) documented in this encounter Visit Diagnoses Not on filedocumented in this encounter Administered Medications Inactive Administered Medications - up to 3 most recent administrations Medication Order MAR Action Action Date Dose Rate Site acetaminophen (TYLENOL) tablet Given 09/11/2016 11:00 AM EST 1,0 00 mg 1,000 mg 1,000 mg, Oral, ONCE, 1 dose, On Wed09/11/16 at 1115, Administer with SIP of H2O only., Day of Surgery (Day of Procedure), Routine bacitracin ointment Given 09/11/2016 11:56 AM 1 Tube 19- Surg ical Site ONCE PRN, Starting on Wed EST 09/11/16 at 1156, Until Wed09/11/16 at 1523, Intra-Operative (Intra-Procedure) BUpivacaine (PF) (MARCAINE) Given 09/11/2016 11:50 AM 15 mg 19- Surgical Site 0.25 % (2.5 mg/mL) injection EST ONCE PRN, Starting on Wed09/11/16 at 1150, Until Wed09/11/16 at 1523, Intra-Operative (Intra-Procedure), Routine gabapentin (NEURONTIN) capsule 600 mg Given 09/11/2016 11:00 AM EST 600 mg 600 mg, Oral, ONCE, 1 dose, On Wed09/11/16 at 1115, Administer with SIP of H2O only., Day of Surgery (Day of Procedure), Routine lactated ringers infusion 1,000 New Bag 09/11/2016 11:08 AM ES T 1,000 mLs 100 mL/hr mL 1,000 mL, at 100 mL/hr, Intravenous, CONTINUOUS, Starting on Wed09/11/16 at 1115, Until Wed09/11/16 at 1523 oxyCODONE (ROXICODONE) 5 mg/5 mL solutio n 5 mg 5 mg, Oral, EVERY 4 HOURS PRN, Starting on Wed09/11/16 at 1103, Until Wed09/11/16 at 1523, Pain, Routine documented in this encounter Active and Recently Administered Medications Times are shown in EST. Scheduled Medication Order 09/09/2016 09/10/2016 09/11/2016 acetaminophen (TYLENOL) tablet 1,000 mg (COMPLETED) 1100 (Given - Provider: Terrie Hyatt RN) 1,000 mg, Oral, ONCE, 1 dose, Wed 6 at 1115, Administer with SIP of H2O only., Day of Surgery (Day of Procedure), Routine gabapentin (NEURONTIN) capsule 600 mg (COMPLETED) 1100 (Given - Provider: Terrie Hyatt RN) 600 mg, Oral, ONCE, 1 dose, Wed09/11/16 at 1115, Administer with SIP of H2O only., Day of Surgery (Day of Procedure), Routine Continuous Medication Order 09/09/2016 09/10/2016 09/11/2016 lactated ringers infusion 1,000 mL 1108 (New Bag - Provider: Terrie Hyatt, RN)1210 (Anesthesia Volume Adjustment - Provider: Rhonda Davis CRNA) 1,000 mL, at 100 mL/hr, Intravenous, CON TINUOUS, Starting Wed09/11/16 at 1115, Until Wed09/11/16 at 1523 PRN Medication Order 09/09/2016 09/10/2016 09/11/2016 bacitracin ointment (CANCELED) 1 156 (Given - Provider: Aldo Bruce MD) ONCE PRN, Starting Wed09/11/16 at 1156, Intra-Operative (Intra-P rocedure) BUpivacaine (PF) (MARCAINE) 0.25 % (2.5 mg/mL) injection (CANCEL ED) 1150 (Given - Provider: Aldo Bruce MD) ONCE PRN, Starting Wed09/11/16 at 1150, Until Wed09/11/16 at 1523, Intra- Operative (Intra-Procedure), Routine oxyCODONE (ROXICODONE) 5 mg/5 mL solution 5 mg 5 mg, Oral, EVERY 4 HOURS PRN, Starting Wed09/11/16 at 1103, Until Wed09/11/16 at 1523, Pain, Routine No Frequency Medication Order 09/09/2016 09/10/2016 09/11/2016 ceFAZolin (ANCEF) 2 gram/50 mL infusion (COMPLETED) 1122 (Given - Provider: Rhonda Dvais CRNA) 1 dose, Starting Wed09/11/16 at 1112, Un til Wed09/11/16 at 1122, TERRIE HYATT: cabinet override documented in this encounter Care Teams Student Ambassador Relationship Specialty Start Date End Date Dana Jiménez PA PCP - General 01/30/15 05/21/20 [address] [place] [address] documented as of this encounter
--- OUTSIDE RECORDS SUMMARY | 2022-08-28 04:45 | XMS_ITS | Encounter Summary ---
:1970 Author Organization [facility] Address [address] [place] [address] Care Team Providers Name Role Phone Tiana Gross MD Primary Care Provider Encounter Details Date Type Department Care Team Description 03/24/2021 Office Visit Dermatology at Jenn Gilbert, Impetigo (Primary Dx); Fredrick CRAIG Dermatofibroma; [address] [facility] Multiple benign nevi; [place] [address] [address] Inflamed skin tag [phone] [facility]-DERMATOLOGY [place], [place] [address] Social History Tobacco Use Types Packs/Day Years Used Date Smoking Tobacco: Never Smokeless Tobacco: Never Sex Assigned at Date Recorded Not on file documented as of this encounter Progress Notes Jenn Cano - 03/24/2021 2:40 PM EDT Images from the original note were not included. DEPARTMENT OF DERMATOLOGY [facility] Provider: Jenn Cano MD Patient's preferred name Meliza Preferred contact method for results [x]myDH []Letter []Phone: Y Detailed phone message OK? yes PAST MEDICAL HISTORY If no, type N. If yes, type date, location, treatment Melanoma N Dysplastic nevi N SCC N BCC N AKs N UV Exposure & Protection N Other relevant past medical history (i.e. 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 If yes, include details below Allergy to lidocaine, epinephrine, Dermabond, chlorhexidine, or adhesives: N Bleeding disorder or blood thinners: N Implanted devices (Pacemaker, defibrillator, deep brain stimulator, cochlear implant): N History of Present Illness: Haritha Merino is a 50 y.o. year old. Patient returns to clinic today for full skin exam -has a sore on right breast that she itched that is asymptomatic -right calf has a red lump bleeds when she shaves -skin tag under right breast and right neck that are bothersome, bleed which she would like removed Last visit at [facility] Derm: 03/28/2020 Last visit with this provider: Visit date not found Medications: Reviewed in eD-H Allergies: Reviewed in eD-H Skin Examination: Full skin examination: Patient asked to undress to their comfort level. Verbalized that the provider's preference is that patient removal all clothing and that the provider will not examine areas patient elects to keep covered. Examination of the scalp, hair, head, face, ears, neck, chest, axillae, abdomen, back, buttocks, and upper and lower extremities.Genitalia was not examined. Assessment/Plan #. Dermatofibroma- brown firm macule on the right lower leg with stellate appearence on dermoscopy Counseled: Dermatofibromas, benign/non-cancerous growth of dermal dendritic histiocyte cells, commonly arise at site of a minor injury and etiology is unknown, prognosis, treatment options if recurs and/or is symptomatic. #. Benign nevi - Scattered medium-brown macules and papules on the trunk and extremities. - Reassured of benign appearance on exam today. - Reviewed ABCDEs of melanoma - Recommend daily sun protection with protective clothing and SPF 30+ # Impetigo- yellow honey crusting overlying eroded papule on right breast -Discussed that this a superficial infection of the skin with Staphylococcus Aureus and that use of a topical antibiotic of treatment is indicated Plan: - mupirocin (BACTROBAN) 2 % Ointment:??Apply 2-3 times daily to affected area on the right breast for 10 days # Benign Appearing Nevi: On the trunk and extrmeities multiple, medium-brown, evenly-pigmented macules and papules. - Reassurance, discussed importance of ABCDE's and monthly self exams # Irritated Skin Tag/ Acrochordon: Patient with flesh colored soft pedunculated papules on the rightneck, right inframammary fold - Discussed that these are benign cutaneous growths - Joint decision to proceed with treatment given lesions are symptomatic Procedure Note: Procedure: Destruction of lesions with cryotherapy. Number: 2 Location: as above Discussed procedure and expectations including risks (including risk of hypopigmentation) and benefits. Verbal consent obtained. Frozen with LN2, 15-30 second thaw time, TWICE. There were no complications; the patient tolerated the procedure well. Post-procedure expectations and wound care were reviewed. # History of Severely atypical nevus: well healed scar Left hallux, - s/p Mohs 09/2016 - continue yearly fse Other items to document in the assessment/plan if relevant ??? N/A RTC: 1 year for FSE []Note routed to payroll secretary [x]Recall has been placed in scheduling system []Appointment scheduled at checkout Scribe attestation: ELLE Ricketts who has performed the documentation for this encounterin the presence of and acting as a scribe for Jenn Cano MD. I performed the above scribed service and agree with the accuracy of the documentation in this encounter. Reviewed and signed by: Jenn Cano MD Dermatology [facility] Patient seen and evaluated with staff ingredient mixer: Maryjane Jordan MD Dermatology [facility] Maryjane Jordan MD - 03/24/2021 2:40 PM EDT I directly supervised the Dermatology resident during this office visit. The resident presented the history and physical exam to me. I then saw and examined this patient with the resident. We reviewed the history and pertinent details and I confirmed the physical findings. I agree with the details of the history and physical exam as documented in the resident's note. MARYJANE JORDAN MD Staff Physician documented in this encounter Plan of Treatment Not on filedocumented as of this encounter Visit Diagnoses Diagnosis Impetigo - Primary Dermatofibroma Benign neoplasm of skin, site unspecifie d Multiple benign nevi Benign neoplasm of skin, site unspecifie d Inflamed skin tag Unspecified hypertrophic and atrophic co ndition of skin documented in this encounter Care Teams Filterer Relationship Specialty Start Date End Date Tiana Gross MD PCP - General Family Medicine 03/24/21 [address] [place] [address] documented as of this encounter
--- OUTSIDE RECORDS SUMMARY | 2022-08-28 04:45 | XMS_ITS | Encounter Summary ---
:1970 Author Organization [facility] Address [address] [place] [address] Care Team Providers Name Role Phone Dana Jiménez Primary Care Provider Reason for Visit Reason Comments Skin Check Encounter Details Date Type Department Care Team Description 02/23/2017 Office Visit Dermatology at Ros[facility] Brown Intertr[facility]; Road MD History of melanoma in situ; [address] [facility] Screening exam for skin canc er; [place] [address] Multiple benign nevi [phone] [facility]-DERMATOLOGY [place], [place] [address] Social History Tobacco Use Types Packs/Day Years Used Date Smoking Tobacco: Never Smokeless Tobacco: Never Sex Assigned at Date Recorded Not on file documented as of this encounter Progress Notes Rosanne Araujo - 02/23/2017 1:30 PM EDT Images from the original note were not included. DERMATOLOGY - ESTABLISHED PATIENT FOLLOW-UP Date of service: 02/23/2017 Haritha Merino : 1970, 46 y.o. CC: HPI: Haritha Merino is a 46 y.o. female. Presents today for full melanoma skin check. 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 She was happy with the outcome from her procedure. She has no new or concerning spots today. She has been good about sunprotection, wearing SPF 60 everyday. 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 multivitamin (THERAGRAN) Tablet, Take 1 tablet by mouth daily., Disp: , Rfl: ??? buPROPion (WELLBUTRIN SR OR ZYBAN) 150 mg Tablet Sustained Release, , Disp: , Rfl: ??? dextroamphetamine-amphetamine (ADDERALL) 10 mg Tablet, take 1 tablet by mouth three times a day,Disp: , Rfl: 0 Allergies Allergen Reactions ??? Sulfa (Sulfonamide Antibiotics) Hives ??? Tape 1X5yd [Adhesive Tape] Dermatitis irritation Review of Systems: - General: Feels well. - Skin: No other skin concerns. Examination: - Constitutional: Patient was alert, well-appearing and in no noticeable distress. - Skin: The entire skin surface was examined, including the face, neck, chest, abdomen, back. The arms and legs, including the palms, soles, fingers and between the toes. No lymphadenopathy, including the supraclavicular, cervical, axillary, and inguinal areas. Melanoma excision site scar was examined and palpated. There was no increase in pigmentation or induration at this site. Diagnosis/Skin findings/Assessment/Plan: 1. Scar, forehead left of midline: 4 mm pink scar - Reassurance provided 2. Benign melanocytic nevi: Approximately sixty 2-4 mm brown macules scattered on the back, chest, upper and lower extremities. One nevus on the central back is slightly darker, but with regular pigment network under dermoscopy and unchanged from last visit. See photos below. - Discussed importance of sun protection, sun avoidance strategies, protective clothing, and sunscreen. I discussed warning signs for skin cancer, including the ABCE's of melanoma. AAD handout provided. 3. Intertrigo, bilateral inguinal creases: Bilateral dark pink nonscaly plaques. - Rx: Ketoconazole cream apply topically twice daily for 3-4 days, use intermittantly for rash groinarea.Sent Rx to pharmacy - Discussed mechanical factors that make the skin environment suspectible to intertrigo. - Keep area dry. Can use blow-dryer on low setting. - Linen in creases to absorb moisture. 4. 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 - NER - Continue FBSE closely - Patient instructed to contact me with any lymphadenopathy or fevers, weight loss RTC: 6 months for melanoma skin check. Patient instructed to call with questions or concerns. The following photos were obtained with patient consent: Note initiated by ELVIS ELMORE LPN. I am documenting this encounter acting as the scribe for and in the presence of Catrachito Gunter MD I performed the above scribed service and agree with the accuracy of the documentation in this encounter. Reviewed and signed by Rosanne Araujo MD Resident in Dermatology [facility] Patient seen and evaluated with staff pit recorder: Tereza Maxwell MD Section of Dermatology [facility] Tereza Maxwell MD - 02/23/2017 1:30 PM EDT I directly supervised Dr. Rosanne Araujo during this office visit. Dr. Araujo presented the history and physical exam to me. I then saw and examined this patient with Dr. Araujo. We reviewed the history and pertinent details and I confirmed the physical findings. I agree with the details of the history and physical exam as documented in Dr. Alvarez note. TEREZA MAXWELL MD Staff Physician documented in this encounter Plan of Treatment Not on filedocumented as of this encounter Visit Diagnoses Diagnosis Intertrigo Other specified erythematous condition History of melanoma in situ Personal history of malignant melanoma o f skin Screening exam for skin cancer Screening for malignant neoplasm of the skin Multiple benign nevi Benign neoplasm of skin, site unspecifie d documented in this encounter Care Teams Coppersmith Apprentice Relationship Specialty Start Date End Date Dana Jiménez PA PCP - General 01/30/15 05/21/20 [address] [place] [address] documented as of this encounter
--- OUTSIDE RECORDS SUMMARY | 2022-08-28 04:45 | XMS_ITS | Encounter Summary ---
:1970 Author Organization [facility] Address [address] [place] [address] Care Team Providers Name Role Phone Unknown, Provider Primary Care Provider Encounter Details Date Type Department Care Team Description 12/14/2007 Results Only [facility] - Rosanne Guerrier MD Maple conversion [address] [place] [address] [place] [address] [phone] Social History Tobacco Use Types Packs/Day Years Used Date Smoking Tobacco: Never Assessed Sex Assigned at Date Recorded Not on file documented as of this encounter Plan of Treatment Not on filedocumented as of this encounter Procedures Procedure Name Priority Date/Time Associated Diagnosis Comme [facility] SURGICAL PATHOLOGY Routine 12/14/2007 0:00 EDT Re sults for this procedure are i n the results section. documented in this encounter Results SURGICAL PATHOLOGY (12/14/2007 0:00 EDT) Component Value Ref Test Analysis Performed At [facility] Method Time [facility] Pathology SURGICAL PATHOLOGY REPORT HANNAH FONG Report: Reports generated via electronic interface contain origina l data; TK RANGEL however they are lacking the format of the original report. Caution should be taken when reading/interpreting unformatte d reports. Name: ? ANGEL MERINO ? Accession #: ? [id number] ? : ? 1970 (Age: 37) ??F ? Collect Date: ? 12/14/2007 ? Location: ? [facility] ? Receive Date: ? 12/14/2007 ? Provider: MARGARITA GUERRIER MD Copy to: FAUSTINA PALAFOX MD ? Final Pathologic Diagnosis: ? Endometrium, biopsy: 1. ?Late secret ory-type endometrium with early menstrual-type stromal and glandular breakdown. 2. ? No chronic endometritis, polyp, hyperplasia, or mal ignancy. Document reviewed and electronically signed by: Gideon Lawson MD Report ??Date: 12/17/2007 13:16 By the signature above, the attending physician certifies th at he/she has personally conducted a gross and/or microscopic examin ation of the described specimens and rendered or confirmed the above diagnosis. Specimen(s) Received: ? Endometrial sample Clinical History: ? Menometrorrhagia Gross Description: ? Received in formalin labelled Wilber and endometrial sample is a 3.1 x 2.4 x 0.4 cm aggregate of he morrhagic red-brown soft tissue. ??Submitted in toto as (A1) and (A2). ??(Fred Noyola)/aminata End of Report Specimen (Source) Anatomical Collection Method Collection Time Re ceived Time Location / / Volume Laterality 12/14/2007 12/14/2007 16:3 4 EDT Margarita Guerrier MD PATHOLOGY ORDERABLES Performing Organization Address City/State/ZIP Code Phon e Number [facility] [address] [place] [address] SERVICES [facility] [address] [place] [address] documented in this encounter Visit Diagnoses Not on filedocumented in this encounter Care Teams Insole Toe Snipping Machine Operator Relationship Specialty Start Date End Date Unknown, Provider, PCP - General 02/06/09 01/08/11 documented as of this encounter
--- OUTSIDE RECORDS SUMMARY | 2022-08-28 04:45 | XMS_ITS | Encounter Summary ---
:1970 Author Organization [facility] [place] [address] Care Team Providers Name Role Phone Dana Jiménez Primary Care Provider Encounter Details Date Type Department Care Team Description 09/02/2016 Office Visit Dermatology at [facility], Melanoma in situ, Road unspecified site [address] [place] [address] [facility]-DERMATOLOGY [place], [place] [address] Social History Tobacco Use Types Packs/Day Years Used Date Smoking Tobacco: Never Smokeless Tobacco: Never Sex Assigned at Date Recorded Not on file documented as of this encounter Last Filed Vital Signs Vital Sign Reading Time Taken Comments Blood Pressure 133/86 09/02/2016 2:23 PM EST Pulse 90 09/02/2016 2:23 PM EST Temperature - - Respiratory Rate - - Oxygen Saturation - - Inhaled Oxygen Concentration - - Weight 108.9 kg (240 lb) 09/02/2016 2:23 PM EST Height 170.2 cm (5' 7) 09/02/2016 2:23 PM EST Body Mass Index 37.59 09/02/2016 2:23 PM EST documented in this encounter Progress Notes Rosanen Kuhn MD - 09/02/2016 2:00 PM EST MOHS SURGICAL CONSULT Chief Complaint: Melanoma in situ History of Present Illness: Referring Physician: Rosanne Araujo MD Tumor type: Melanoma in situ Location of Skin Cancer: Left great toe Duration of Presence: 1 year Previous Treatment: None Symptoms: [] Pain [] Bleeding [] Crusting [] Other [x] None Previous History of Skin Cancer: [x] None [] List: Family History of Skin Cancer [x] None [] Melanoma [] Basal cell [] Squamous cell [] Other: Review of Systems: Check all that apply regarding other health problems Skin Hematological Eyes/Ears/Nose/Throat [x] Normal [x] Normal [] Normal [] Thick scars/keloids [] Anemia [] Glaucoma [] Poor wound healing [] Bleeding problems [] Hearing aid [] Herpes infection/cold sores [] Enlarged lymph nodes [x] Cosmetic surgery- scar revision on forehead [] Other [] Other [] Other Cardiovascular Respiratory GI/Renal [x] Normal [x] Normal [x] Normal [] Angina (chest pain) [] Emphysema [] Colitis [] Heart attack (Date ) [] COPD [] Stomach ulcer [] Artificial heart valve [] Asthma [] Kidney disease [] Pacemaker/defib [] Other [] Other [] HTN [] Other Musculoskeletal Endocrine Infections [x] Normal [x] Normal [x] None [] Arthritis [] Thyroid disease [] HIV/AIDS [] Artificial joint (Year ) [] Diabetes [] Hepatitis (type ) [] Other [] Other [] Tuberculosis [] Other Neurological Psychiatric [x] Normal [] Normal [] Stroke [x] Anxiety [] Seizures [] Depression [] Mental status change [] Other [] Other Do you take antibiotics prior to having a dental or any other procedure? No Medical Problems (not listed above): There is no problem list on file for this patient. Surgical history (not listed above): No past surgical history on file. Physical Limitations: None Do You Take [] aspirin [] Plavix [] Coumadin [] Other blood thinners/anti- platelet medications [x] None List Other Medications (prescription and over the counter including vitamins): Current Outpatient Prescriptions Medication Sig Dispense Refill ??? buPROPion (WELLBUTRIN SR OR ZYBAN) 150 mg Tablet Sustained Release ??? dextroamphetamine-amphetamine (ADDERALL) 10 mg Tablet take 1 tablet by mouth three times a day 0 No current facility-administered medications for this visit. Medication Allergies: Allergies Allergen Reactions ??? Sulfa (Sulfonamide Antibiotics) Hives ??? 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 No Alcohol? Occasional Women: Are you ? No Physical Exam BP 133/86 Pulse 90 Ht 170.2 cm (5' 7) Wt (!) 108.9 kg (240 lb) BMI 37.59 kg/m2 General: Pleasant, well-appearing, in no acute distress. Skin: Limited examination of left great toe reveals a 0.5 x 0.5mm eschar at site of previous biopsy. Assessment and Plan 1. Melanoma in situ, left great toe - Recommend staged excision with 0.5cm margins. Repair with plastics. - Consult with plastics this afternoon. - [facility] pathology department has received the pathology slides and we will ensure that they are read prior to the excision. Rosanne Kuhn MD Micrographic Surgery and Dermatologic Oncology Fellow Department of Dermatology [facility] Staff Insulation Nozzleman: Broderick Espinoza MD, PhD I directly supervised Dr. Kuhn in the care of this patient. I saw and evaluated this patient with Dr. Kuhn. She presented the history and physical exam details to me, then we saw the patient together and I confirmed these findings. I agree with details as written. My physical examination confirms Dr. Kuhn's findings. The assessment and plan were formulated in discussion with me at the time of visit and I agree with them as documented. BRODERICK ESPINOZA MD Staff Physician documented in this encounter Plan of Treatment Not on filedocumented as of this encounter Visit Diagnoses Diagnosis Melanoma in situ, unspecified site documented in this encounter Care Teams Wic Site Coordinator Relationship Specialty Start Date End Date Dana Jiménez PA PCP - General 01/30/15 05/21/20 [address] [place] [address] documented as of this encounter
--- OUTSIDE RECORDS SUMMARY | 2022-08-28 04:45 | XMS_ITS | Encounter Summary ---
:1970 Author Organization [facility] Address [address] [place] [address] Care Team Providers Name Role Phone Dana Jiménez Primary Care Provider Reason for Visit Reason Comments Skin Check hx melanoma Encounter Details Date Type Department Care Team Description 09/07/2017 Office Visit Dermatology at [facility], History of melanoma in situ; Fredrick CRAIG Dermatofibroma; [address] [facility] EIC (epidermal inclusion cys t); [place] [address] [address] Sheri dias; [phone] [facility] Benign nevus; RD-DERMATOLOGY Seborrheic keratoses, inflamed [place], [place] [address] Social History Tobacco Use Types Packs/Day Years Used Date Smoking Tobacco: Never Smokeless Tobacco: Never Sex Assigned at Date Recorded Not on file documented as of this encounter Progress Notes Rosanne Araujo - 09/07/2017 3:20 PM EST Images from the original note were not included. DERMATOLOGY - ESTABLISHED PATIENT FOLLOW-UP Date of service: 09/07/2017 Haritha Merino : 1970, 47 y.o. CC: Skin lesion, hx of melanoma in situ HPI: Haritha Merino is a 47 y.o. female last seen by me on 02/23/17. - She presents for a full skin cancer exam. - She has a skin tag that gets irritated on the left neck from her neck lace. - She mentioned she has spider veins and wants to know how to go about getting them taken a care since they hurt. - She has an area on the back of the left side of her head that is scabbed been present for 3-4 weeks. She said it was puffy and it drained. - She mentioned when she was younger she had swollen lymph node and had them lanced opened and drained she is wondering if this is what is going on now too. - Lost weight do to trying. - She has been feeling well. - Tanning bed exposure limited for special things. 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 Family History: Melanoma: none Maternal aunt and great aunt with breast cancer. ? Social/Occupational History:?? 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 Lymph node basins of the axillae and groin were palpated and were normal. Diagnosis/Skin findings/Assessment/Plan: 1. 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 - NER - Continue FBSE closely - Patient instructed to contact me with any lymphadenopathy or fevers, weight loss ?? 2. Probable Epidermal inclusion cyst (EIC): [place] papule with hem crust and Periferal scale on the left occiput. -Discussed can be removed if continues to be bothersome 3. Symptomatic spider veins: Violaceous torturous vessels on bilateral proximal lower lateral legs -Discussed the use of Compression stockings 20-30 mm of Hg -Discussed referral to Vascular surgery if above does not improve symptoms. Briefly discussed ablation techniques. 4. Mild density of benign appearing nevi: Multiple, 0.3-0.5cm, medium-brown, evenly-pigmented macules and papules. All with regular pigment pattern on dermoscopy. No pigmented lesions suspicious for melanoma. -Reassured of the benign nature of these lesions. No treatment needed. -Monitor for change in shape, size and color. If such occur contact the office. 5. Dermatofibroma (DF): right medial lower leg: firm papule, centrally raised and sclerotic, with peripheral hyperpigmentation and dimpling with lateral pressure. -Reassured of the benign nature of these lesions. No treatment needed. 6. Inflamed Seborrheic Keratosis (ISK): Left neck line: 0.4-1 cm, brown-black papule with waxy stuckon appearance Procedure Note: Procedure: Destruction of lesion(s) with cryotherapy. Number: 1 Location: as above Discussed procedure and expectations including risks (including risk of hypopigmentation) and benefits. Verbal consent obtained. Frozen with LN2, 15-30 second thaw time, TWICE. There were no complications; the patient tolerated the procedure well. Post-procedure expectations and wound care were reviewed. - RTC: 6 months FBSE - Hx of Melanoma, or sooner if problems arise. Note initiated by BETTY PALOMINO LPN. I am documenting this encounter acting as the scribe for and inthe presence of Rosanne Araujo MD I performed the above scribed service and agree with the accuracy of the documentation in this encounter. Reviewed and signed by Rosanne Araujo MD Resident in Dermatology [facility] Staff bee raiser: Kandace Maxwell MD Section of Dermatology [facility] Kandace Maxwell MD - 09/07/2017 3:20 PM EST I was the supervising physician working with dermatology resident Dr. Rosanne Araujo in the dermatology clinic during this patient visit. The level of Resident supervision for this patient visit was indirect supervision with direct supervision immediately available. (definition: [facility] Policy Statement on Graduate Medical Education, Supervision of Graduate Medical Trainees) I was immediately available to Dr. Araujo for questions and discussion regarding this visit. I have reviewed her encounter note details and level of service. KANDACE MAXWELL MD Staff Physician documented in this encounter Plan of Treatment Not on filedocumented as of this encounter Visit Diagnoses Diagnosis History of melanoma in situ Personal history of malignant melanoma o f skin Dermatofibroma Benign neoplasm of skin, site unspecifie d EIC (epidermal inclusion cyst) Sebaceous cyst Spider veins Nevus, non-neoplastic Benign nevus Benign neoplasm of skin, site unspecifie d Seborrheic keratoses, inflamed documented in this encounter Care Teams Personal Insurance Advisor Relationship Specialty Start Date End Date Dana Jiménez PA PCP - General 01/30/15 05/21/20 [address] [place] [address] documented as of this encounter
--- OUTSIDE RECORDS SUMMARY | 2022-08-28 04:45 | XMS_ITS | Encounter Summary ---
:1970 Author Organization [facility] [place] [address] Care Team Providers Name Role Phone Dana Jiménez Primary Care Provider Encounter Details Date Type Department Care Team Description 05/31/2018 Telephone Dermatology at [facility] Saul Maldonado MD [address] [facility] [place] [address] [facility] [phone] [place], [place] [address] (Wo rk) Social History Tobacco Use Types Packs/Day Years Used Date Smoking Tobacco: Never Smokeless Tobacco: Never Sex Assigned at Date Recorded Not on file documented as of this encounter Miscellaneous Notes Telephone Encounter - Unique Peters - 05/31/2018 9:03 AM EDT YANET WITH MAINLINE # TO RESCHEDULE APPT WITH DR MALDONADO documented in this encounter Plan of Treatment Not on filedocumented as of this encounter Visit Diagnoses Not on filedocumented in this encounter Care Teams Reed Fixer Relationship Specialty Start Date End Date Dana Jiménez PA PCP - General 01/30/15 05/21/20 [address] [place] [address] documented as of this encounter
--- OUTSIDE RECORDS SUMMARY | 2022-08-28 04:45 | XMS_ITS | Clinical Summary ---
:1970 Author Organization [facility] [place] [address] Care Team Providers Name Role Phone Tiana Gross MD Primary Care Provider Allergies Active Allergy Reactions Severity Noted Date Comments Sulfa (Sulfonamide Antibiotics) Hives 6 Adhesive Tape Dermatitis 08/13/2016 irritation Medications Medication Sig Dispensed Refills Start Date End Date Status buPROPion (WELLBUTRIN 0 08/12/2016 Active SR OR ZYBAN) 150 mg Tablet Sustained Release dextroamphetamine-amphe take 1 tablet by 0 6 Active tamine (ADDERALL) 10 mg mouth two times a Tablet day multivitamin Take 1 tablet by 0 Active (THERAGRAN) Tablet mouth daily. levothyroxine Take 1 tablet by 90 tablet 3 07/12/2018 Active (SYNTHROID) 50 mcg mouth daily. NAME Tablet BRAND ONLY mupirocin (BACTROBAN) 2 Apply 2-3 times 22 g 0 03/24/2021 Active % OintmentIndications: daily to affected Impetigo area on the right breast for 10 days Active Problems Problem Noted Date Macromastia 05/10/2018 Intertrigo 05/10/2018 Surgery follow-up 11/05/2016 Melanoma in situ 09/02/2016 Social History Tobacco Use Types Packs/Day Years Used Date Smoking Tobacco: Never Smokeless Tobacco: Never Sex Assigned at Date Recorded Not on file Last Filed Vital Signs Vital Sign Reading Time Taken Comments Blood Pressure 118/80 07/12/2018 9:25 AM EDT Pulse 85 07/12/2018 9:25 AM EDT Temperature 36.7 ??C (98.1 ??F) 10/09/2016 10:19 AM EST Respiratory Rate 18 09/11/2016 12:22 PM EST Oxygen Saturation 96% 09/11/2016 12:42 PM EST Inhaled Oxygen Concentration - - Weight 116.7 kg (257 lb 4.8 oz) 07/12/2018 9:25 AM EDT Height 170.2 cm (5' 7) 07/12/2018 9:25 AM EDT Body Mass Index 40.3 07/12/2018 9:25 AM EDT Plan of Treatment Health Maintenance Due Date Last Done Comments Hepatitis B vaccine (0-59 yrs) (1 of 3 - 3-dose series) 05/02/19 [birth year] Covid-19 Vaccine (#1) 1970 HIV screen 1986 Hepatitis C Screening 1986 Tdap adult 1987 Tetanus vaccine 1987 HPV test 1998 PAP Smear 1998 Breast Cancer Share Decision Needed 2008 Colonoscopy 2013 Breast Cancer screening 2018 Zoster vaccine (1 of 2) 2018 Influenza (Flu) vaccine (1 of 1 - Influenza standard 06/04/2022 series) Insurance Payer Benefit Plan / Subscriber ID Effective Dates Phone Addre ss Type Group [employer] [place] [id number] 2018-Present [address] [place] [address] Advance Directives Latest Code Status on File Code Status Date Activated Date Inactivated Comments Full Code 09/11/2016 11:04 AM 09/11/2016 3:23 PM Question Answer Comments Does patient have capacity to make decision: Yes Care Teams Engraver [employer] Relationship Specialty Start Date End Date Berrian, Tiana M, MD PCP - General Family Medicine 03/24/21 [address] [place] [address]
--- OUTSIDE RECORDS SUMMARY | 2022-08-28 04:45 | XMS_ITS | Encounter Summary ---
:1970 Author Organization [facility] Address [address] [place] [address] Care Team Providers Name Role Phone Unavailable Primary Care Provider Unavailable Encounter Details Date Type Department Care Team Description 02/04/2009 Orders Only [facility] Steven Howard MD [facility] [address] [place] [address] [place] [address] [phone] Social History Tobacco Use Types Packs/Day Years Used Date Smoking Tobacco: Never Assessed Sex Assigned at Date Recorded Not on file documented as of this encounter Plan of Treatment Not on filedocumented as of this encounter Procedures Procedure Name Priority Date/Time Associated Diagnosis Comme [facility] SURGICAL PATHOLOGY Routine 02/04/2009 0:00 EDT Re sults for this procedure are i n the results section. documented in this encounter Results SURGICAL PATHOLOGY (02/04/2009 0:00 EDT) Component Value Ref Test Analysis Performed At [facility] Method Time Signature Pathology SURGICAL PATHOLOGY REPORT ? NANETTE HER Report: Reports generated via electr [employer] interface contain original data; ? TK RANGEL however they are lacking the format of the original report. ? Caution should be taken when reading/interpreting unformatted reports. ? Name: ? CHARMAINE, ANGEL ? Accession #: ? [id number] ? : ? 1970 (Age: 38) ??F ? Collec t Date: ? 02/04/2009 ? Location: ? [facility] ? R eceive Date: ? 02/05/2009 ? Provider: STEVEN WALKO MD ? Copy to: FAUSTINA READY MD ? Final Pathologic Diagnosis: ? Gallbladder, cholecys tectomy: ? 1. ?Gallbladder with no specific pathologic features. ? 2. ? Cholelithiasis. ? 3. ?Cystic duct lymph node with reactive changes including scattered ? lipogranulomas. ? Document reviewed and electr onically signed by: ? Samanta Dillon, MD ? Report ??Date: 02/06/2009 21 :27 ? By the signature above, the attending physician certifies that he/she has ? personally conducted a gross and/or microscopic examination of the described ? specimens and rendered or co nfirmed the above diagnosis. ? Specimen(s) Received: ? Gallbladder ? Clinical History: ? Biliary colic ? Gross Description: ? Received in formalin labelled Angel Merino and gallbladder is an ? intact 8.0 x 4.0 x 2.5 cm in tact gallbladder with attached 1.7 cm in length by ?? 0.5 cm in diameter cystic du ct. ??The margin of the cystic duct is inked black. ?? The serosa is smooth, varieg ated, ranging from pale bobo to green to blue. ? Opening the gallbladder reve als a moderate amount of bile as well as many ? multifaceted pale yellow cho loliths ranging from 0.1 to 0.8 cm in greatest ? dimension. ??The mucosa is b rown-aguilar, velvety and does not have any masses. ??The wall thickness is 0.2 cm. ?? There is an attached 1.1 x 0.5 x 0.3 cm cystic duct ?? lymph node. ??Machining Manager sections to represent the gallbladder fundus and ? neck as well as cystic duct and cystic duct lymph node are submitted entirely in one cassette. (Iav Garza/mpl ? End of Report ? Specimen (Source) Anatomical Collection Method Collection Time Re ceived Time Location / / Volume Laterality 02/04/2009 02/05/2009 9:19 EDT Steven Lamas MD PATHOLOGY ORDERABLES Performing Organization Address City/State/ZIP Code Phon e Number [facility] [address] [place] [address] SERVICES [facility] [address] [place] [address] documented in this encounter Visit Diagnoses Not on filedocumented in this encounter
--- OUTSIDE RECORDS SUMMARY | 2022-08-28 04:45 | XMS_ITS | Encounter Summary ---
:1970 Author Organization [facility] Address [address] [place] [address] Care Team Providers Name Role Phone Unknown, Provider Primary Care Provider Encounter Details Date Type Department Care Team Description 08/02/2009 Orders Only [facility] Faustina Grant MD Laboratory Services - [facility] [address] [place] [address] [place], [place] [address] [phone] Social History Tobacco Use Types Packs/Day Years Used Date Smoking Tobacco: Never Assessed Sex Assigned at Date Recorded Not on file documented as of this encounter Plan of Treatment Not on filedocumented as of this encounter Procedures Procedure Name Priority Date/Time Associated Comments Diagnosis HPV DETECTION, HIGH Routine 08/02/2009 10:59 Resu lts for this RISK TYPES EDT procedure are i n the results section. CYTOPATHOLOGY Routine 08/02/2009 0:00 Results for this EDT procedure are i n the results section. documented in this encounter Results HUMAN PAPILLOMA VIRUS DNA TEST (08/02/2009 10:59 EDT) [facility] Method Time Signature Specimen Cervix, KWAN Description ThinPrep [facility] vial Result Negative for KWAN HPV types [facility] 16, 18, 31, 33, 35, 39, 45, 51, 52, 56, 58, 59, and 68. Report Status Final [facility] 08/14/2009 [facility] Specimen Anatomical Collection Method Collection Time Receive d Time (Source) Location / / Volume Laterality 08/02/2009 10:59 08/09/2009 EDT 10:59 EST Faustina Grant MD MICROBIOLOGY - GENERAL ORDER MANGO Performing Organization Address City/State/ZIP Code Phon e Number [facility] [address] [place] [phone] SERVICES [facility] [address] [place] [phone] CYTOPATHOLOGY (08/02/2009 0:00 EDT) Component Value Ref Test Analysis Performed At [facility] gist Range Method Time Signature Pathology CYTOPATHOLOGY REPORT ? ANIYA Report: ? [facility] Reports generated via [employer] contain original data; ? however they are lacking the format of the original report. ? Caution should be taken when reading/interpreting unformatted reports. ? Name: ? ANGEL MERINO ? Accession #: ? [id number] ? : ? 1970 (Age: 39) ??F ?Collect Date: ? 08/02/2009 ? Location: ? [facility] ? Receive Date: ? 08/05/2009 ? Provider: ?FAUSTINA READY MD ? Copy to: ? Specimen/Source: ? Pap Test, Cervix/Endocervix, ThinPrep Imaging System ? with manual evaluation ? Last Menstrual Period: ? 10/06/09 ? Treatment History: ? Miscellaneous treatment: Abl ation for DUB ? Other: ? HPVDX - HPV testing requeste d regardless of diagnosis on current ThinPrep Pap ?? test. ? SPECIMEN ADEQUACY ? Satisfactory for Eval uation ? - transformation zone compon ent present ? GENERAL CATEGORIZATION ? Negative for Intraepi thelial Lesion or Malignancy ? Document reviewed and electr onically signed by: ? Anjelica Calix, SCT( ASCP) ? Report Date: ??11/05/ 2009 15:54 ? End of Report ? Specimen (Source) Anatomical Location Collection Method / Collectio n Time Received Time / Laterality Volume 08/02/2009 08/05/2009 Faustina Grant MD PATHOLOGY ORDERABLES Performing Organization Address City/State/ZIP Code Phon e Number [facility] [address] [place] [address] SERVICES [facility] [address] [place] [address] documented in this encounter Visit Diagnoses Not on filedocumented in this encounter Care Teams Quartz Miner Blasting Relationship Specialty Start Date End Date Unknown, Provider, PCP - General 02/06/09 01/08/11 documented as of this encounter
--- OUTSIDE RECORDS SUMMARY | 2022-08-28 04:45 | XMS_ITS | Encounter Summary ---
:1970 Author Organization [facility] [place] [address] Care Team Providers Name Role Phone Dana Jiménez Primary Care Provider Reason for Visit Reason Comments Follow Up Surgery left great toe skin graft, Encounter Details Date Type Department Care Team Description 10/09/2016 Office Visit Plastic Surgery at [facility] Melan oma in situ, [facility] DATA INTEGRITY CONSULTANT unspecified site [facility] [address] [place] PLASTIC SURGERY [address] [place] [address] [phone] Social History Tobacco Use Types Packs/Day Years Used Date Smoking Tobacco: Never Smokeless Tobacco: Never Sex Assigned at Date Recorded Not on file documented as of this encounter Last Filed Vital Signs Vital Sign Reading Time Taken Comments Blood Pressure - - Pulse - - Temperature 36.7 ??C (98.1 ??F) 10/09/2016 10:19 AM EST Respiratory Rate - - Oxygen Saturation - - Inhaled Oxygen Concentration - - Weight - - Height - - Body Mass Index - - documented in this encounter Patient Instructions Patient InstructionsBriana Izaguirre RN - 10/09/2016 10:20 AM EST Medihoney to wound once daily. Cleanse well first. Call for any concerns. documented in this encounter Progress Notes Mely James APRN - 10/09/2016 10:20 AM EST Images from the original note were not included. Plastic Surgery Post Op Note Reason for visit: F/U status post procedure Date of surgery: 09/11/16 Procedure(s): melanoma in situ great toe, left Complications: None reported Pain: 12/11 HPI: Pt reports that her toe feels different then it did 3 days ago. She was worried that her toecould be infected and came to clinic today. She is not taking any antibiotics at this time. She had reported that her surgical area started to smell which furthered her concerns. Examination: Temp 36.7 ??C (98.1 ??F) Patient is alert, conversant, comfortable, ambulating Skin graft sloughed off. Macerations surrounding. No collection, no erythema, no evidence of cellulitis. Impression: Haritha Merino is a 46 y.o. female who was seen today for follow-up after the above procedure. Please see the operative note for details. She had concerns that her toe was infected. She haslost some if not all of her graft. No clear infection. I debrided the area today. She will begin to use medihoney daily. If she has any worsening pain, redness, drainage, she will contact our office and I would consider starting antibiotics at that point. Plan: 1. Follow up: Next week 2. Keep foot elevated 3. Wash over area gently with soap and water, pat dry, allow time to air dry. Apply medihoney and a bandaid. Change daily. I, Katie Concepcion, am acting as scribe for Mely James APRN. All work documented was performed by Mely James APRN ???I performed the above scribed service and agree with the accuracy of the note?? KATIE CONCEPCION documented in this encounter Plan of Treatment Not on filedocumented as of this encounter Visit Diagnoses Diagnosis Melanoma in situ, unspecified site documented in this encounter Care Teams Fast Food Crew Member Relationship Specialty Start Date End Date Dana Jiménez PA PCP - General 01/30/15 05/21/20 [address] [place] [address] documented as of this encounter
--- OUTSIDE RECORDS SUMMARY | 2022-08-28 04:45 | XMS_ITS | Encounter Summary ---
:[address] [facility] Address [address] [place] [address] Care Team Providers Name Role Phone Unknown, Provider Primary Care Provider Encounter Details Date Type Department Care Team Description 04/18/2008 Before [facility] - Faustina Grant MD Converted Visit [facility] MEDICAL ([place]) [address] [place] [address] [address] [place] [address] (Wo rk) Social History Tobacco Use Types Packs/Day Years Used Date Smoking Tobacco: Never Assessed Sex Assigned at Date Recorded Not on file documented as of this encounter Plan of Treatment Not on filedocumented as of this encounter Procedures Procedure Name Priority Date/Time Associated Diagnosis [facility] CYTOPATHOLOGY Routine 04/18/2008 0:00 EDT Results for this procedure are i n the results section . documented in this encounter Results CYTOPATHOLOGY (04/18/2008 0:00 EDT) Component Value Ref Test Analysis Performed At [facility] Method Time [facility] Pathology CYTOPATHOLOGY REPORT ? ANIYA Report: ? [facility] Reports generated via electr onic interface contain original data; ? however they are lacking the format of the original report. ? Caution should be taken when reading/interpreting unformatted reports. ? Name: ? ANGEL MERINO ? Accession #: ? [id number] ? : ? 1970 (Age: 37) ??F ?Collect Date: ? 04/18/2008 ? Location: ? [facility] ? Receive Date: ? 04/19/2008 ? Provider: ?FAUSTINA READY MD ? Copy to: ? Specimen/Source: ? ThinPrep Pap Test, Cervix/Endocervix, processed on Cytyc ThinPrep Imaging System, wit h manual evaluation ? Last Menstrual Period: ? 7/16/08 ? Treatment History: ? Miscellaneous treatment: End ometrial Biopsy 3/12/08 ? SPECIMEN ADEQUACY ? Satisfactory for Eval uation ? - transformation zone compon ent present ? - scant squamous epithelial component ? GENERAL CATEGORIZATION ? Negative for Intraepi thelial Lesion or Malignancy ? Document reviewed and electr onically signed by: ? Darcy Conrad, S CT(ASCP) ? Report Date: ??07/25/ 2008 08:02 ? End of Report ? Specimen (Source) Anatomical Location Collection Method / Collectio n Time Received Time / Laterality Volume 04/18/2008 04/19/2008 Faustina Grant MD PATHOLOGY ORDERABLES Performing Organization Address City/State/ZIP Code Phon e Number [facility] [address] [place] [address] SERVICES [facility] [address] [place] [address] documented in this encounter Visit Diagnoses Not on filedocumented in this encounter Care Teams Electrical Panel Builder Relationship Specialty Start Date End Date Unknown, Provider, PCP - General 02/06/09 01/08/11 documented as of this encounter
--- OUTSIDE RECORDS SUMMARY | 2022-08-28 04:45 | XMS_ITS | Encounter Summary ---
:1970 [address] Organization [facility] [place] [address] Care Team Providers Name Role Phone Dana Jiménez Primary Care Provider Encounter Details Date Type Department Care Team Description 09/01/2016 Hospital [place] [address] Social History Tobacco Use Types Packs/Day Years Used Date Smoking Tobacco: Never Smokeless Tobacco: Never Sex Assigned at Date Recorded Not on file documented as of this encounter Medications at Time of Discharge Medication Sig Dispensed Refills Start Date End Date buPROPion (WELLBUTRIN SR 0 08/12/2016 OR ZYBAN) 150 mg Tablet Sustained Release dextroamphetamine-amphetam take 1 tablet by 0 ine (ADDERALL) 10 mg mouth two times a day Tablet documented as of this encounter Plan of Treatment Not on filedocumented as of this encounter Procedures Procedure Name Priority Date/Time Associated Diagnosis Comme [facility] SURGICAL PATHOLOGY Routine 09/01/2016 11:34 AM Re sults for this REPORT EST procedure are i n the results section. documented in this encounter Results Surgical Pathology Report (09/01/2016 11:34 AM EST) Component Value Ref Test Analysis Performed At Patholo gist Range Method Time Signature Surgical [id number] ?Location: [facility] Pathology [place] Report The signing pathologist has (i) examined the relevant preparation(s) for the [facility] specimen(s) and (ii) rendered or confirmed the diagnosis(es) . HOSPITAL LABORATORY . ?Surgic al Pathology DIAGNOSIS CONSULTATION CASE Outside slide labeled [id number], collection date 07/27/2016 . Skin, left hallux, ??biopsy: - SEVERELY ATYPICAL INTRAEPIDERMAL MELANOCYTIC PROLIFE RATION, PRESENT AT THE PERIPHERAL EDGE OF THE SPECIMEN (SEE DISCUSSION) Electronically signed by: ??Kalia CRAIG, Bishop Montaño Verified: ??09/07/2016 ?Dermatopathologist DISCUSSION Thank you for allowing us to review this unusual and highly challenging case. On histologic grounds, we consider this lesion to have indeterminate biologic potential and cannot exclude early or e volving melanoma in situ. ??Given that this proliferation has atyp ia (disorganized lentiginous and pagetoid spread of melanocytes) that exceed th ose of a conventional acral nevus, and the lesion is transected, we recommend repeat excisio n to ensure eradication and to prevent progression. ??Drs. Mcneal and Shant have reviewed this case and agree with this diagnosis. ??Dr. Motta pr ovided this information to Dr. Espinoza at 1300 on 09/07/2016. CLINICAL INFORMATION Specimen Submitted: CONSULTATION CASE A - 1 slide labeled [id number], collection date 07/27/2016. [id number] Report to: [facility] [address] [place] [address] SPECIMEN PROCESSING [facility] ?? p athology slide(s) are reviewed. ??Refer to Diagnosis and Specimen Submitted for specific case information. For the full text of the [facility] report(s) please refer to Non-DH Documentation Pathology in the electronic health record (eD H). Specimen (Source) Anatomical Collection Method Collection Time Re ceived Time Location / / Volume Laterality 09/01/2016 11:34 AM EST Broderick Espinoza MD PATHOLOGY/CYTOLOGY ORDERABLE S Performing Organization Address City/State/[place] [address] documented in this encounter Visit Diagnoses Not on filedocumented in this encounter Care Teams Veterinary Surgery Technician Relationship Specialty Start Date End Date Dana Jiménez PA PCP - General 01/30/15 05/21/20 [address] [place] [address] documented as of this encounter
--- OUTSIDE RECORDS SUMMARY | 2022-08-28 04:45 | XMS_ITS | Encounter Summary ---
:1970 Author Organization [facility] [place] [address] Care Team Providers Name Role Phone Dana Jiménez Primary Care Provider Reason for Visit Reason Comments Follow-up s/p flap 09/11/16 Encounter Details Date Type Department Care Team Description 11/05/2016 Office Visit Plastic Surgery at [facility] Mely James, Surgery [place] [address] PLASTIC SURGERY [place] [id number] (Wo rk) Social History Tobacco Use Types Packs/Day Years Used Date Smoking Tobacco: Never Smokeless Tobacco: Never Sex Assigned at Date Recorded Not on file documented as of this encounter Progress Notes Mely James, BUSINESS CONSULT - 11/05/2016 10:00 AM EST Plastic Surgery Post Op Note Reason for visit: F/U status post procedure Date of surgery: 09/11/16 Procedure(s): melanoma in situ great toe, left Complications: None reported Pain: 0/10 HPI: Pt reports that her toe is doing much better. There has been no drainage for the last 5 days. She is not adding any gauze except when she is at work. She has been trying to wear different shoes. She reports that her toe is still very sensitive. 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 She does have a follow up with the floor coverings installer. She is concerned that she some suspicious areas on her onher back but will follow up with them regarding this issue. Examination: Patient is alert, conversant, comfortable, ambulating Healing well. No drainage noted today. No collection, no erythema, no evidence of cellulitis. Impression: Haritha Merino is a 46 y.o. female who was seen today for follow-up after the above procedure. Please see the operative note for details. Overall, she is healing well. She may resume normaldaily activity. I have put bacitracin on the toe and covered it with a Band-Aid. Dr. Bruce examined the patient at today's visit. Plan: 1. Follow up: Patient will call to make an appointment if not completely healed in 1 month. 2. Wash over area gently with soap and water, pat dry, allow time to air dry. Keep cover if having any drainage. 3. May resume any and all activity I, Jenn Sy, am acting as scribe for Mely James APRN. All work documented was performed by Mely James APRN ???I performed the above scribed service and agree with the accuracy of the note?? MELY JAMES APRN documented in this encounter Plan of Treatment Not on filedocumented as of this encounter Visit Diagnoses Diagnosis Surgery follow-up Follow-up examination, following unspeci fied surgery documented in this encounter Care Teams Rn Hyperbaric Relationship Specialty Start Date End Date Dana Jiménez PA PCP - General 01/30/15 05/21/20 [address] [place] [address] documented as of this encounter
--- OUTSIDE RECORDS SUMMARY | 2022-08-28 04:45 | XMS_ITS | Encounter Summary ---
:1970 Author Organization [facility] [place] [address] Care Team Providers Name Role Phone Dana [...] Expiration Date Visits Requ ested Visits Authorized [id number] 1 1 Encounter Details Date Type Department Care Team Description 09/11/2016 Hospital Encounter Outpatient Surgery Israel Bruce ph, MD [facility] [place]LAST[place], [place] [id number] [place] [phone] Social History Tobacco Use Types Packs/Day Years [...] in this encounter Discharge Instructions Discharge InstructionsTerrie Sanon RN - 09/11/2016 11:22 AM EST General [...] closest emergency room or call the hospital gas shovel operator at [phone] and ask for physician online affiliate marketing manager covering for your physician. Questions or problems after 5pm or on a weekend: Call the [facility] gas shovel operator at and ask for the physician online affiliate marketing manager covering for your doctor. At 11 am [...] office hours: Wednesday - Wednesday 8am-5pm call [phone]. On weekends or after hours call [phone] and ask the gas shovel operator to page the plastic surgery resident online affiliate marketing manager. FOLLOW UP: Future Appointments and Orders Future Appointments Provider Department Dept Phone 09/21/2016 2:00 PM NURSE, PLASTIC SURGERY Plastic Surgery [phone] MEDICATIONS: Your Medications UNREVIEWED medications - Discuss [...] called in to our prescription line at [phone]. Narcotic renewals may be requested from 8am-4pm [...] Wednesday 8 am to 5 pm Call [phone] On weekends or after hours: Call [phone] and ask the gas shovel operator to page the Plastic Surgery Resident online affiliate marketing manager. Post-Op Plan: - Follow up in: 7-10 [...] ordered Jess Lombardi PA-C Plastic Surgery Pager [phone] documented in this encounter Miscellaneous Notes Op Note - Aldo Bruce MD - 09/11/2016 12:14 PM EST [facility] Operative Note Patient Name: Haritha Merino : [id number] MR#: [id number] Case Date: 09/11/2016 Surgeon: Surgeon(s) and Role: * Aldo Bruce MD - Primary * Jess Lombardi PA - Physician Bellmaker Preoperative diagnosis: melanoma in situ great toe, [...] OF SURGERY: 09/11/16 ATTENDING: Dr Aldo Bruce CAN INSPECTOR: NKECHI Escalante ANESTHESIA: General LMA. PREPARATION: Betadine. [...] Operative Note Patient Name: Haritha Merino : [id number] MR#: [id number] Case Date: 09/11/2016 Surgeon: Surgeon(s) and Role: * Aldo Bruce MD - Primary * Jess Lombardi PA - Physician Bellmaker Preoperative diagnosis: melanoma in situ great toe [...] Procedure), Routine gabapentin (NEURONTIN) capsule 600 mg Given [...] mg (COMPLETED) 1100 (Given - Provider: Terrie Sanon RN) 1,000 mg, Oral, ONCE, 1 dose, Wed 6 at 1115, Administer with SIP of H2O only., Day of Surgery (Day of Procedure), Routine gabapentin (NEURONTIN) capsule 600 mg (COMPLETED) 1100 (Given - Provider: Terrie Sanon RN) 600 mg, Oral, ONCE, 1 dose, Wed09/11/16 at 1115, Administer with SIP of H2O only., Day of Surgery (Day of Procedure), Routine Continuous Medication Order 09/09/2016 09/10/2016 09/11/2016 lactated ringers infusion 1,000 mL 1108 (New Bag - Provider: Terrie Sanon RN)1210 (Anesthesia Volume Adjustment - Provider: Rhonda [...] infusion (COMPLETED) 1122 (Given - Provider: Rhonda Davis CRNA) 1 dose, Starting Wed09/11/16 at 1112, Un til Wed09/11/16 at 1122, TERRIE FRIEND: cabinet override documented in this encounter Care Teams Radio Reporter Relationship Specialty Start Date End Date Dana Jiménez PA PCP - General 01/30/15 05/21/20 [address] [place] [address] documented as of this encounter
--- OUTSIDE RECORDS SUMMARY | 2022-08-28 04:45 | XMS_ITS | Encounter Summary ---
:1970 Author Organization [facility] Address [address] [place] [address] Care Team Providers Name Role Phone Unknown, Provider Primary Care Provider Encounter Details Date Type Department Care Team Description 08/22/2003 Results Only [facility] - Rosanne Guerrier MD Maple conversion [address] [place] [address] [place] [address] [phone] Social History Tobacco Use Types Packs/Day Years Used Date Smoking Tobacco: Never Assessed Sex Assigned at Date Recorded Not on file documented as of this encounter Plan of Treatment Not on filedocumented as of this encounter Procedures Procedure Name Priority Date/Time Associated Diagnosis Comme nts CYTOPATHOLOGY Routine 08/22/2003 0:00 EST Results for this procedure are i n the results section . documented in this encounter Results CYTOPATHOLOGY (08/22/2003 0:00 EST) Component Value Ref Test Analysis Performed At [facility] Pathology CYTOPATHOLOGY REPORT ANIYA Report: [facility] Reports generated via electronic interface contain original data; however they are lacking the format of the original report. Caution should be taken when reading/interpreting unformatte d reports. Name: ? ANGEL MERINO ? Accession #: ? [id number] : ? 1970 (Age: 33) ??F ?Collect Date: ? 08/22/2003 Location: ? [facility] ? Receive Date: ? 08/27/2003 Provider: ?MARGARITA GUERRIER MD Copy to: ? Specimen/Source: ?ThinPrep Pap Test, Cervix/Endoce rvix Last Menstrual Period: ? 08/13/03 ? SPECIMEN ADEQUACY ? Satisfactory for Evaluation - transformation zone component present GENERAL CATEGORIZATION ? Negative for Intraepithelial Lesion or Malignancy INTERPRETATION ? Fungal organisms pres ent morphologically consistent with Ashley species. ? Document reviewed and electronically signed by: ? Darcy Conrad [facility](ASCP) ? Report Date: ??08/29/2003 13:25 End of Report Specimen (Source) Anatomical Location Collection Method / Collectio n Time Received Time / Laterality Volume 08/22/2003 08/27/2003 Margarita Guerrier MD PATHOLOGY ORDERABLES Performing Organization Address City/State/ZIP Code Phon e Number [facility] [address] [place] [address] SERVICES [facility] [address] [place] [address] documented in this encounter Visit Diagnoses Not on filedocumented in this encounter Care Teams Site Monitor Relationship Specialty Start Date End Date Unknown, Provider, PCP - General 02/06/09 01/08/11 documented as of this encounter
--- OUTSIDE RECORDS SUMMARY | 2022-08-28 04:45 | XMS_ITS | Encounter Summary ---
:1970 Author Organization [facility] Address [address] [place] [address] Care Team Providers Name Role Phone Unknown, Provider Primary Care Provider Encounter Details Date Type Department Care Team Description 10/14/2004 Results Only [facility] - Rashid Salazar MD conversion [address] [place] [id number] Social History Tobacco Use Types Packs/Day Years Used Date Smoking Tobacco: Never Assessed Sex Assigned at Date Recorded Not on file documented as of this encounter Plan of Treatment Not on filedocumented as of this encounter Procedures Procedure Name Priority Date/Time Associated Diagnosis Comme nts CYTOPATHOLOGY Routine 10/14/2004 0:00 EST Results for this procedure are i n the results section . documented in this encounter Results CYTOPATHOLOGY (10/14/2004 0:00 EST) Component Value Ref Test Analysis Performed At [facility] Pathology CYTOPATHOLOGY REPORT ANIYA Report: [facility] Reports generated via electronic interface contain original data; however they are lacking the format of the original report. Caution should be taken when reading/interpreting unformatte d reports. Name: ? ANGEL MERINO ? Accession #: ? [id number] : ? 1970 (Age: 34) ??F ?Collect Date: ? 10/14/2004 Location: ? [facility] ? Receive Date: ? 10/15/2004 Provider: ?RASHID BRENNAN MD Copy to: ? Specimen/Source: ?ThinPrep Pap Test, Cervix/Endoce rvix Last Menstrual Period: ? 11/07 Menstrual/ Status: ? Post Hormonal/Contraceptive Status: ? Condoms Other: ? HPVA - HPV testing requested if ASC-US on the current ThinPr ep Pap test. ? SPECIMEN ADEQUACY ? Satisfactory for Evaluation - transformation zone component present GENERAL CATEGORIZATION ? Negative for Intraepithelial Lesion or Malignancy ? Document reviewed and electronically signed by: ? KARLEY Clinton(ASCP) ? Report Date: ??10/17/2004 13:14 End of Report Specimen (Source) Anatomical Location Collection Method / Collectio n Time Received Time / Laterality Volume 10/14/2004 10/15/2004 Rashid Brennan MD PATHOLOGY ORDERABLES Performing Organization Address City/State/ZIP Code Phon e Number [facility] [address] [place] [address] SERVICES [facility] [address] [place] [address] documented in this encounter Visit Diagnoses Not on filedocumented in this encounter Care Teams Multiple Slide Operator Relationship Specialty Start Date End Date Unknown, Provider, PCP - General 02/06/09 01/08/11 documented as of this encounter
--- OUTSIDE RECORDS SUMMARY | 2022-08-28 04:45 | XMS_ITS | Encounter Summary ---
:1970 Author Organization [facility] [place] [address] Care Team Providers Name Role Phone Dana Jiménez Primary Care Provider Reason for Visit Reason Comments Procedure Encounter Details Date Type Department Care Team Description 09/07/2016 Procedure visit Dermatology at Christophe AlexisMika arreola MD Skin lesion [facility] [address] [facility] [place] [address] [place] [address] [phone] (Wo rk) Social History Tobacco Use Types Packs/Day Years Used Date Smoking Tobacco: Never Smokeless Tobacco: Never Sex Assigned at Date Recorded Not on file documented as of this encounter Last Filed Vital Signs Vital Sign Reading Time Taken Comments Blood Pressure 138/82 09/07/2016 1:15 PM EST Pulse 100 09/07/2016 1:15 PM EST Temperature - - Respiratory Rate - - Oxygen Saturation - - Inhaled Oxygen Concentration - - Weight - - Height - - Body Mass Index - - documented in this encounter Patient Instructions Patient InstructionsCoccandrew-Wolfgang Costello LPN - 09/07/2016 1:00 PM EST General Post-Operative Instructions Do not drink alcohol or take any medications containing aspirin, ibuprofen, or Vitamin E for the first two days after surgery unless it has been prescribed by a physician. These may increase the changeof bleeding. Do not smoke for a minimum of 5 days after surgery. Do not get your bandage wet. Avoid public pools and hot tubs As a rule, no exercise is permitted for 7 days. Avoid heavy lifting or any activity that will pull or strain the wound for 3 weeks minimum. Certain surgeries will require longer periods off from exercise as instructed by your doctor. Potential Complications Pain: Most patients have little or no pain. If your wound hurts, apply an ice pack for 15 minutes out of every hour until bedtime. Ice compresses should be done OVER the pressure bandage. Do not apply ice directly on the skin. Ice should be placed in a plastic bag, then wrapped in a towel and applied to the bandaged wound. A bag of frozen peas wrapped in a towel also works well. If your wound still hurts, you can take Tylenol 500 mg every 4-6 hours. Increasing pain, or pain notrelieved by Tylenol, should be reported to our office. Infection: Infection is not common when the wound is well cared for. [place] drainage or slight yellow film on your bandage or open wound is normal and is not an infection. It is also normal for the edgesof the wound to be pink or red, but redness should not spread out beyond the wound edges. If you notice any of these signs of infections, please call the clinic. ??? Increased pain or swelling around the wound ??? Redness spreading out from the wound ??? Green, thick, or foul smelling wound drainage ??? Fever or chills Bleeding: It is normal to see a small amount of blood on the pressure bandage when you remove it. Ifblood leaks out of the bandage within the first 48 hours, hold firm pressure directly over the top of the bandage without removing it for 15 minutes. If bleeding does not stop, hold pressure for another 15 minutes. If bleeding continues, call our office immediately or go to your local urgent care or emergency room. If blood accumulates under the sutured area, this is called a hematoma. Your wound will become swollen and very hard to the touch. You may experience increasing amounts of pain. This requires attention, and our office should be notified. Swelling and Bruising: These side effects are fairly common, but usually resolve in 2-3 weeks. Areasof the mouth and eye can last longer. Swelling and bruising can be reduced by applying an ice pack over the dressing for 15 minutes out of every hour for the rest of the day of surgery. Swelling around the eyes and neck are normal if you have had surgery to the forehead, eye area, nose, or cheeks. In fact, one or both eyes may swell shut. Swelling will be worse in the morning and improve during the day. If your wound is on your face, head or neck: ??? Sleep with your head raised on 2 pillows to reduce swelling ??? Do no bend over with your head lower then the level of your heart. Bend at the knees and not thewaist. If your wound is on your arm or leg: ??? Keep your arm or leg raised above your heart as much as you can, such as putting your leg on a pillow then lying down, particularly for the first 48 hours. This will help prevent swelling and promote healing. Wounds on the arm or leg may heal more slowly than other areas. ??? Use compression stocking or bibi wrap if instructed to do so. Scarring: There is always some scarring from any wound. Some people may have thickened scars, but these often flatten out in 3-6 months. Occasionally injections are used to help flatten thick scars. Time improves most scars. Wound healing actually takes 1-2 years before it is completely finished. Cover-up makeup may be used after the wound is healed. Other questions or concerns? Please do not hesitate to contact us. During regular business hours youcan call the clinic at . After 5PM and on weekends, please call the hospital number and ask for the Contract Analyst bridal sales consultant. Wound Care for Open Wounds You should start wound care on Wednesday. Keep your dressing clean and dry until then. Supplies you will need: ??? Clean cotton swabs (Q-tips) ??? Vaseline or white petrolatum - Aquaphor ??? Non-stick gauze (telfa pads) or band aids ??? Tape Care of the Wound 1. Assemble all supplies prior to dressing change 2. Wash your hands well with soap and water 3. Take off the old dressing. If it sticks, wet the edges of the dressing with water, or remove it in the shower. 4. Re-wash hands 5. Shower once a day with the bandage off, or clean the area under running tap water. Lather gently with soap and water, then rinse and blot dry. 6. Apply Vaseline (white petrolatum) or Aquaphor in a thin layer over the wound. You may use a cleancotton swab to apply the ointment, rolling the swab gently over the wound. 7. Cover with a non-stick gauze thick enough to absorb any drainage and protect the wound. If you need any help or have any questions, please call our clinic at . After 5PM and on weekends, please call the hospital number and ask for the Contract Analyst bridal sales consultant. documented in this encounter Progress Notes Wolfgang Núñez LPN - 09/08/2016 2:21 PM EST Pathology relayed to patient via telephone per Dr. Espinoza. Plan to proceed with surgical repair with Dr. Bruce as scheduled 09/11/16. DIAGNOSIS Skin, left great toe, excision: 1. ??Scar, consistent with prior surgical procedure. 2. ??There is no residual atypical melanocytic proliferation. WOLFGANG NÚÑEZ LPN Broderick Espinoza MD - 09/07/2016 1:00 PM EST Patient name: Haritha Merino : 1970 Date: 09/07/2016 Staff Surgeon: Broderick Espinoza MD, PhD Is Technician I: Catrachito Gunter MD, Wolfgang Núñez LPN Pre-operative diagnosis: Severely atypical intraepidermal melanocytic proliferation Post-operative diagnosis: Severely atypical intraepidermal melanocytic proliferation Location: Left great toe Procedure: Staged excision Indication for Staged excision: Critical Anatomic Location Stage: 1 Defect size: 1 x 1.5 cm Stage I The nature and purpose of the procedure, associated risks, possible consequences and complications, and alternative forms of treatment were explained in detail. Informed consent and permission to take photographs were obtained. The site was confirmed with the patient/authorized life assurance representative/referring physician and a pre-operative time-out was conducted with no unresolved discrepancies noted. Local anesthesia was obtained with 1% lidocaine. The surgical site was prepped and draped in the usual sterile manner. Tumor was excised with 0.3 cm margin of clinically normal skin down to subcutaneous fat. Hemostasis was achieved by electrocoagulation. The excised tissue was oriented with suture at the 12 o'clock position and submitted pathology. The patient tolerated the procedure well and without complications. The final size of the defect after the first stage of tumor removal was 1 x 1.5 cm, extending to subcutaneous fat. The surgical site was cleaned and gelfoam was placed in the wound bed. A white petrolatum and Xeroform gauze pressure dressing applied. The patient tolerated the procedure well and without complications and was given both verbal and written instruction on postoperative wound care. The patient was discharged in good condition. Broderick Espinoza MD, PhD documented in this encounter Plan of Treatment Not on filedocumented as of this encounter Procedures Procedure Name Priority Date/Time Associated Diagnosis Comme nts SPECIMEN TO STAT 09/07/2016 2:25 PM Skin lesion Results f or this PATHOLOGY (NON-OR) EST procedure are in the results section. SURGICAL PATHOLOGY Routine 09/07/2016 2:25 PM Res ults for this REPORT EST procedure are i n the results section. documented in this encounter Results Surgical Pathology Report (09/07/2016 2:25 PM EST) Component Value Ref Test Analysis Performed At [facility] Method Time Signature Surgical [id number] ?Location: [facility] Report The signing pathologist has (i) examined the relevant preparation(s) for the [facility]IAL specimen(s) and (ii) rendered or confirmed the diagnosis(es) . [facility] . ?Surgic al Pathology DIAGNOSIS Skin, left great toe, excision: 1. ??Scar, consistent with prior surgical procedure. 2. ??There is no residual atypical melanocytic proliferation . Electronically signed by: ??Julian CRAIG, Alla Reese Verified: ??09/08/2016 ?Dermatopathologist DISCUSSION STAT results called to Dr. Espinoza by Dr. Jordan at 08:40 on 1 11/09/15. ADDITIONAL STUDIES Prior biopsy, [id number], has been reviewed. CLINICAL INFORMATION Specimen Submitted: A - Skin, left great toe, excision (1) Clinical History: See previous path [id number] Clinical Diagnosis: Severely atypical intraepidermal melanocytic proliferation SPECIMEN PROCESSING A - Labeled/Fixative: Left great toe, formalin. Quantity/Size: Single, 1.2 x 0.9 x 0.2 cm. Tissue Description: Discoid, congested aguilar-pink and wrinkled skin excision with a central 0.3 cm diameter g ray-brown ulcerated lesion surrounding purple ink. The specimen is received suture oriented, designated ?tagged at 12 o 'clock. Sections/Processing: The mar gins from 12-3-6 o ?? 'clock are inked black; and blue from 6-9 o 'clock. The spec imen is serially sectioned from 12 to 6 o ?? 'clock entirely submitted. (1) 12 o ' clock margin; (2) 6 o 'clock margin; (3-5) remainder of the specimen from 12 to 6 o ??'clock. (T5) ??shb Specimen (Source) Anatomical Collection Method Collection Time Re ceived Time Location / / Volume Laterality 09/07/2016 2:25 PM EST Broderick Espinoza MD PATHOLOGY/CYTOLOGY ORDERABLE S Performing Organization Address City/State/ZIP [place] [address] Specimen to Pathology (NON-OR) (09/07/2016 2:25 PM EST) Specimen Anatomical Collection Method Collection Time Receive d Time (Source) Location / / Volume Laterality AP Specimen 09/07/2016 2:25 PM 201 6 3:32 EST PM EST Narrative [facility] - 09/07/2016 3:32 PM EST Specimen requisition ordered. ??Separate Pathology report to follow Resulting Agency Comment Spec In Lab Broderick Espinoza MD PATHOLOGY/CYTOLOGY ORDERABLE S Performing Organization Address City/State/ZIP Code Phon e Number [place] [phone] [facility] [address] documented in this encounter Visit Diagnoses Diagnosis Skin lesion Unspecified disorder of skin and subcuta neous tissue documented in this encounter Care Teams Surgical Tech Relationship Specialty Start Date End Date Dana Jiménez PA PCP - General 01/30/15 05/21/20 [address] [place] [address] documented as of this encounter
--- OUTSIDE RECORDS SUMMARY | 2022-08-28 04:45 | XMS_ITS | Encounter Summary ---
:1970 Author Organization [facility] Address [address] [place] [address] Care Team Providers Name Role Phone Dana Jiménez Primary Care Provider Reason for Visit Reason Comments Advice Only bbr consult Consultation (Routine) - Closed Specialty Diagnoses / Procedures Referred By Contact Refer red To Contact Plastic Surgery Diagnoses Dana Liu PA [facility] [address] [place] [address] [place] [address] Phone: Referral ID Status Reason Start Date Expiration Date Visits V isits Requested Authorized [id number] Closed Consult, 04/07/2018 04/07/2019 1 1 [facility] Encounter Details Date Type Department Care Team Description 05/10/2018 Office Visit Plastic Surgery at [facility] Aldo Bruce MD Macromastia; [facility] [place] [address] PLASTIC SURGERY [phone] [place], [place] [address] (Wo rk) Social History Tobacco Use Types Packs/Day Years Used Date Smoking Tobacco: Never Smokeless Tobacco: Never Sex Assigned at Date Recorded Not on file documented as of this encounter Last Filed Vital Signs Vital Sign Reading Time Taken Comments Blood Pressure - - Pulse - - Temperature - - Respiratory Rate - - Oxygen Saturation - - Inhaled Oxygen Concentration - - Weight 125.2 kg (276 lb) 05/10/2018 2:36 PM EDT Height 166.4 cm (5' 5.5) 05/10/2018 2:36 PM EDT Body Mass Index 45.23 05/10/2018 2:36 PM EDT documented in this encounter Progress Notes Aldo Bruce MD - 05/10/2018 2:30 PM EDT Plastic Surgery Consultation Note PCP: NKECHI Khan Requesting Physician: No primary care provider on file. CC: Symptomatic macromastia HPI: Haritha Merino is a 48 y.o. female who presents today for evaluation of symptomatic macromastia. Her PCP is NKECHI Khan and has requested the consultation. She is unaccompanied for today???s visit. She experiences severe discomfort at the size of her breasts. She has chronic shoulder and back pain. She encounters difficulty going about her chosen exercise activities, and feels inhibited by the extent of her breast size. Her breasts are very painful, and cause her significant discomfort. She experiences rashes beneath her breasts. She has undergone extensive Physical Therapy and Chiropractic treatment to address her symptoms with on relief. She finds weight loss does not alter the si ze of her breasts. She has tingling and numbness in her breasts currently. She has had large breastssince she was young. She has hypothyroidism which was diagnosed recently, and she plans to meet withan wash barrel leader soon.. She wishes to discuss her options for breast reduction. She has completed a breast specific questionnaire & pertinent findings to emphasize are: PLASTICS BREAST QUESTIONS 05/10/2018 Headaches? None of the time Pain in your breast area? Most of the time Lack of energy? None of the time Difficulty doing vigorous physical activities (e.g. running or exercising)? Some of the time Feeling physically unbalanced? Some of the time Shoulder pain? Most of the time Difficulty sleeping because of discomfort in your breast area? Most of the time Neck pain? Most of the time Painful gouges or grooves in your shoulders from your bra straps? All of the time Feeling physically uncomfortable? Most of the time Rashes under your breasts? Some of the time Back pain? Most of the time Arm pain? A little of the time Pain, numbness or tingling in your hands because of your breast size? Most of the time Satisfaction with Breasts 23 PsychoSocial Well-being 55 Sexual Well-being 46 Physical Well-being 56 Conservative Therapy Treatments: MYD-H PLASTICS CONSERVATIVE THERAPY TREATMENTS 05/10/2018 Physical therapy was effective at relieving my symptoms. Some Relief How many months did you try this treatment? More than 6 months Use of custom support bras relieved my symptoms. No Relief How many months did you try this treatment? More than 6 months Treatment by a chiropractor relieved my symptoms. Some Relief How many months did you try this treatment? More than 6 months Weight loss relieved my symptoms. No Relief How many months did you try this treatment? More than 6 months Non-narcotic medications (such as Tylenol, Aspirin, Ibuprofen, Aleve, etc) have relieved my symptoms. Some Relief How many months did you try this treatment? More than 6 months Narcotic pain relievers (such as Tylenol #3, Percocet, etc) have relieved my symptoms. Never Tried Other Treatments have relieved my symptoms. Never Tried Over the counter or prescription medication has relieved the rashes under my breasts. Some Relief How many months did you try this treatment? Less than 3 months No past medical history on file. Past Surgical History: Procedure Laterality Date ? ? PRO FULL THICK GRFT HEAD, FAC, HAND <20SQC Left 09/11/2016 FTSG, FREE, W/ CLOSURE DONOR SITE, 20 SQ CM OR LESS, FEET performed by Aldo Bruce MD at [facility] OSC ROS: System Constitutional neg Eye neg ENT neg CV neg Resp neg GI neg neg Skin neg Allergy neg Endocrine hypothyroidism Neurologic neg Musculoskeletal Neck and back pain Lymph neg Psych neg Y N All other systems reviewed and negative. x Examination: BMI: Ht 166.4 cm (5' 5.5) Wt 125.2 kg (276 lb) BMI 45.23 kg/m2 BSA: Body surface area is 2.41 meters squared. General: On my examination today, the patient appears to be in good health. Her emotional outlook ispositive and she asked appropriate questions throughout the visit. Musculoskeletal: Her back is straight without evidence of kyphosis. Gross full ROM x 4 extrem, ambulating, no lesions Breasts: Bra size: 40 E-F Intertriginous rash beneath breasts Breast Measurements Right Left Ptosis III III SN-N (cm) 39 39 NAC (cm) 6 6 Base diameter (cm) 22 21 Shoulder grooves +++ +++ Rash + + Resection (estimate in gms) 1100 1100 Impression: We reviewed that at her current BMI, which is at 45, she is at increased risk for healing complication including wound breakdown, seroma, and hematoma. I feel that her best option at this time is to begin synthroid and work towards weight loss. Her breast size and symptoms do warrant surgical intervention for relief of severe symptoms and intertriginous rash. Symptomatic bilateral breast hypertrophy. Bilateral breast reduction is indicated for relief of her breast-related symptoms. She watched the BRI video on breast reduction, and was provided with an ASPS brochure and informed consent on breast reduction. It reviews the surgical risks, alternate skin incisions and pedicle versus free nipple graft techniques. It also discusses the option of volume reduction by liposuction alone, which does not alter the nipple-areolar complex position. It talks about the impact of this surgery on decreasing breast cancer risk. We reviewed the timing of surgery relative to weight fluctuations and I've advised that surgery is best done at a realistic halfway stable weight. We talked about the outpatient nature of the surgery, drains, postoperative recovery, and time required off work. The following risks were reviewed in the video or in our discussion: Surgical Risks which are greater with open reduction: bleeding with risk of hematoma (<5%); numbness, which may be temporary or permanent; scarring, including abnormal scarring; infection (5-10%); fat necrosis resulting in a breast mass and possible need for revision. I stressed the likelihood of minor problems with delayed wound healing (~30%) and the rare complication of nippleareolar necrosis. She is also aware that there may be some residual pain after the surgery and that there may possibly be some asymmetry. Vertical or Lollipop Incision: Less scarring on breast, but slightly greater risk for delayed healing and desire for scar revision. (She was informed that her insurer might not cover secondary revisions for scarring or asymmetry.) Black or Marion Pattern Incision: More scarring on breast, but lower risk for scar revision. (She wasinformed that her insurer might not cover secondary revisions for scarring or asymmetry.) Pedicle Technique: volume of reduction may be limited by need to provide an adequate blood supply tothe nipple. There is a very small risk of nipple loss. Most women (~60%) will be able to breast-feed. Free Nipple Graft: The grafts will initially have no sensation and once fully healed may not respondto temperature and touch as they do now. She has also been informed that they may not look entirely normal and may have patchy hypopigmentation. She will not be able to breast feed with this technique. After fully discussing the options, she has opted to pursue a: Bilateral Breast Reduction Vertical, Pedicle x Bilateral Breast Reduction Black, modified boyer OR FNG Bilateral Breast Reduction Black, FNG Anticipated resection: 1100 grams right breast 1100grams left breast BSA [employer]/[place] Medicaid All other / Schnur 2.40 1000 1275 Photos taken today with informed signed consent. Plan: 1. Begin synthroid, work towards weight loss 2. Follow up to finalize plans 2-3 months 3. Obtain letter form chiropractor Surgery Booking Information: Surgeon: JS Duration: 3 hours Timeframe: Elective, Sep-oct to allow for weight loss Procedure: Bilateral breast reduction CPT: 70206 Surgical Technique: modified boyer OR FNG pending weight loss Surgical site: Breasts Side: Bilateral Anesthesia: General Follow up: 1-3 days for drain removal; 7-10 days for HCK NSO when JS in clinic PAT: H&P DOS Need to discontinue blood thinners pre-op? Not taking ISandie, have performed the documentation for this encounter in the presence of and acting as a scribe for ALDO BRUCE MD. I performed the services which were documented by the scribe, and I agree with the accuracy of the documentation in this encounter. ALDO BRUCE MD documented in this encounter Plan of Treatment Not on filedocumented as of this encounter Visit Diagnoses Diagnosis Macromastia Hypertrophy of breast Intertrigo Other specified erythematous condition documented in this encounter Care Teams Ed Case Manager Relationship Specialty Start Date End Date Dana Jiménez PA PCP - General 01/30/15 05/21/20 [address] [place] [address] documented as of this encounter
--- OUTSIDE RECORDS SUMMARY | 2022-08-28 04:45 | XMS_ITS | Encounter Summary ---
:1970 Author Organization [facility] Address [address] [place] [address] Care Team Providers Name Role Phone Unknown, Provider Primary Care Provider Encounter Details Date Type Department Care Team Description 10/19/2005 Results Only [facility] - Rashid Salazar MD conversion [address] [place] [address] Social History Tobacco Use Types Packs/Day Years Used Date Smoking Tobacco: Never Assessed Sex Assigned at Date Recorded Not on file documented as of this encounter Plan of Treatment Not on filedocumented as of this encounter Procedures Procedure Name Priority Date/Time Associated Diagnosis Comme nts CYTOPATHOLOGY Routine 10/19/2005 0:00 EST Results for this procedure are i n the results section . documented in this encounter Results CYTOPATHOLOGY (10/19/2005 0:00 EST) Component Value Ref Test Analysis Performed At [facility] Method [facility] Pathology CYTOPATHOLOGY REPORT ANIYA Report: [facility] Reports generated via electronic interface contain original data; however they are lacking the format of the original report. Caution should be taken when reading/interpreting unformatte d reports. Name: ? ANGEL MERINO ? Accession #: ? [id number] : ? 1970 (Age: 35) ??F ?Collect Date: ? 10/19/2005 Location: ? [facility] ? Receive Date: ? 10/20/2005 Provider: ?RASHID BRENNAN MD Copy to: ? Specimen/Source: ? ThinPrep Pap Test, Cervix/Endocervix, processed on [employer] ThinPrep Imaging System, with manual evaluation Last Menstrual Period: ? 09/29/05 Other: ? Additional clinical information: 10/14/04 nl pap HPVA - HPV testing requested if ASC-US on the current ThinPr ep Pap test. ? SPECIMEN ADEQUACY ? Satisfactory for Evaluation - transformation zone component present GENERAL CATEGORIZATION ? Negative for Intraepithelial Lesion or Malignancy ? Document reviewed and electronically signed by: ? KARLEY Clinton(ASCP) ? Report Date: ??10/21/2005 16:56 End of Report Specimen (Source) Anatomical Location Collection Method / Collectio n Time Received Time / Laterality Volume 10/19/2005 10/20/2005 Rashid Brennan MD PATHOLOGY ORDERABLES Performing Organization Address City/State/ZIP Code Phon e Number [facility] [address] [place] [address] SERVICES [facility] [address] [place] [address] documented in this encounter Visit Diagnoses Not on filedocumented in this encounter Care Teams Satellite Dish Installer Relationship Specialty Start Date End Date Unknown, Provider, PCP - General 02/06/09 01/08/11 documented as of this encounter
--- OUTSIDE RECORDS SUMMARY | 2022-08-28 04:45 | XMS_ITS | Encounter Summary ---
:1970 Author Organization [facility] Address [address] [place] [address] Care Team Providers Name Role Phone Mar Grant MD Primary Care Provider Encounter Details Date Type Department Care Team Description 02/19/[address] [facility] Margarita Guerrier MD Laboratory Services - [address] [place] [address] [address] [facility] [place] [address] [phone] Social History Tobacco Use Types Packs/Day Years Used Date Smoking Tobacco: Never Assessed Sex Assigned at Date Recorded Not on file documented as of this encounter Plan of Treatment Not on filedocumented as of this encounter Procedures Procedure Name Priority Date/Time Associated Diagnosis Comme [facility] SURGICAL PATHOLOGY Routine 02/19/2011 0:00 EDT Re sults for this procedure are i n the results section. documented in this encounter Results SURGICAL PATHOLOGY (02/19/2011 0:00 EDT) Component Value Ref Test Analysis Performed At [facility] Method Time Signature Pathology SURGICAL PATHOLOGY REPORT ? NANETTE HER Report: Reports generated via electr RecordSetter interface contain original data; ? TK RANGEL however they are lacking the format of the original report. ? Caution should be taken when reading/interpreting unformatted reports. ? Name: ? WILBER, ANGEL ? Accession #: ? [id number] ? : ? 1970 (Age: 40) ??F ? Collec t Date: ? 02/19/2011 ? Location: ? [facility] ? R eceive Date: ? 02/19/2011 ? Provider: MARGARITA LINDA MD ? Copy to: MAR READY MD ? Final Pathologic Diagnosis: ? Endometrium, curettag e: ? 1. ?Inactive en dometrium. ? 2. ? Benign endocervical tissue with focal benign squamous metaplasia. ??See ?? comment. ? Comment: ? The endometrial ruddy al features suggest an exogenous progestin effect. ? Clinical correlation is sugg ested. ??(T. Yossi)/ljn ? Document reviewed and electr onically signed by: ? FAYE L SHAHID MD ? Report ??Date: 02/24/2011 17 :37 ? By the signature above, the attending physician certifies that he/she has ? personally conducted a gross and/or microscopic examination of the described ? specimens and rendered or co nfirmed the above diagnosis. ? Specimen(s) Received: ? Endometrial curetting s ? Clinical History: ? Menorrhagia, dysmenor matt, 3 yr s/p ablation ? Gross Description: ? Received in formalin labelled Wilber, Angel and endometrial curettings is a 2.0 x 1.5 x 0.5 cm aggr egate of red-brown, hemorrhagic tissue fragments ? admixed with clotted blood. ??The specimen is entirely submitted in a single ? cassette. ??(Zac Cordoba)/kenny ? End of Report ? Specimen (Source) Anatomical Collection Method Collection Time Re ceived Time Location / / Volume Laterality 02/19/2011 02/19/2011 20:5 0 EDT Margarita Guerrier MD PATHOLOGY ORDERABLES Performing Organization Address City/State/ZIP Code Phon e Number [facility] [address] [place] [address] SERVICES [facility] [address] [place] [address] documented in this encounter Visit Diagnoses Not on filedocumented in this encounter Care Teams Spanish Instructor Relationship Specialty Start Date End Date Mar Grant MD PCP - General 01/09/11 04/16/13 [facility] [address] [place], [place] [id number] documented as of this encounter
--- OUTSIDE RECORDS SUMMARY | 2022-08-28 04:45 | XMS_ITS | Encounter Summary ---
:1970 Author Organization [facility] [place] [address] Care Team Providers Name Role Phone Dana Jiménez Primary Care Provider Reason for Visit Reason Comments Skin Check Encounter Details Date Type Department Care Team Description 03/28/2020 Office Visit Dermatology at [facility]; Fredrick Chavez MD Multiple benign nevi; [address] [facility] Solar lentigo; [place] [address] H/O melanoma in situ [phone] [facility] [place], [place] [address] Social History Tobacco Use Types Packs/Day Years Used Date Smoking Tobacco: Never Smokeless Tobacco: Never Sex Assigned at Date Recorded Not on file documented as of this encounter Progress Notes Vee Ba MD - 03/28/2020 11:00 AM EDT Images from the original note were not included. DERMATOLOGY - ESTABLISHED PATIENT FOLLOW-UP Date of service: 03/28/2020 Haritha Merino : 1970, 49 y.o. Chief Complaint: Chief Complaint Patient presents with ??? Skin Check HPI: Haritha Merino is a 49 y.o. female last seen by Dr. Plascencia on 03/28/2019. Ms. Merino returns today for a full skin exam. Since her last appointment, she has not noticed any pruritic, painful, bleeding, nonhealing, or growing/changing lesions of concern. Patient was previously unaware of lesion on left 3rd toe. 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 Family History: Melanoma: none Maternal aunt and great aunt with breast cancer. ? Social/Occupational History:?? 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 Medications: Current Outpatient Medications Medication Sig Dispense Refill ??? levothyroxine (SYNTHROID) 50 mcg Tablet Take 1 tablet by mouth daily. NAME BRAND ONLY 90 tablet 3 ??? multivitamin (THERAGRAN) Tablet Take 1 tablet by mouth daily. ??? buPROPion (WELLBUTRIN SR OR ZYBAN) 150 mg Tablet Sustained Release ??? dextroamphetamine-amphetamine (ADDERALL) 10 mg Tablet take 1 tablet by mouth two times a day 0 No current facility-administered [...] exception of the findings listed below. Genitalia examined. - ELLE Dunaway was present and on standby during my examination. Diagnosis/Skin findings/Assessment/Plan: #. 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 No pre-/post-auricular, cervical, supraclavicular, axillary or inguinal lymphadenopathy. - Biopsy 08/2016: severely atypical melanocytic proliferation... cannot rule out MIS - ABCDEs review with patient and provided with handout. - Diligent photoprotection with SPF 30 reapplied q2 hours recommended. - Continue clinical monitoring with annual full skin exams. #. Dermatofibroma EXAM: on the right calf, there is a light brownish-pink, firm, round papule which displays central umbilication with central pressure. On dermoscopy, central stellate hypopigmentation appreciated. - Benign nature discussed. No further intervention indicated at this time. #. Multiple Benign Nevi EXAM: scattered on the trunk and extremities, there are light to medium brown macules and papules with regular pigment network on dermoscopy. - Benign nature discussed. No further intervention indicated. - ABCDEs of melanoma reviewed. Recommend photoprotection with minimum SPF 30 reapplied every 2 hours. - Continue to clinically monitor #. Solar lentigines EXAM: concentrated in sun-exposed areas (distal upper and lower extremities, shoulders, face), thereare numerous, light brown macules with moth-eaten borders and homogeneous pigmentation. - Association with prior sun-exposure reviewed. - Recommend daily photoprotection with minimum SPF 30 or above, reapplied every 2 hours. RTC: 1 year for FSE Note initiated by ELLE Dunaway. I performed the services which were documented by the scribe, and I agree with the accuracy of the documentation in this encounter. Vee Ba MD Reviewed and signed by: Vee Ba MD Resident in Dermatology [facility] Patient seen and evaluated with staff hot room attendant: Maryjane Jordan MD Section of Dermatology [facility] Maryjane Jordan MD - 03/28/2020 11:00 AM EDT I directly supervised the Dermatology resident [...] as of this encounter Visit Diagnoses Diagnosis Dermatofibroma Benign neoplasm of skin, site unspecifie d Multiple benign nevi Benign neoplasm of skin, site unspecifie d Solar lentigo Other dyschromia H/O melanoma in situ Personal history of malignant melanoma o f skin documented in this encounter Care Teams Trackmobile Operator Relationship Specialty Start Date End Date Dana Jiménez PA PCP - General 01/30/15 05/21/20 [address] [place] [address] documented as of this encounter
--- OUTSIDE RECORDS SUMMARY | 2022-08-28 04:45 | XMS_ITS | Encounter Summary ---
:1970 Author Organization [facility] Address [address] [facility] [place] [address] Care Team Providers Name Role Phone Tiana Gross MD Primary Care Provider Encounter Details Date Type Department Care Team Description 03/17/2022 Office Visit Dermatology at [facility] of melanoma in situ; Fredrick Hansen MD Multiple benign nevi; [address] [facility]; [place], [place] [address] Seborrheic keratosis; [phone] [facility] Diaz angioma; [phone] RD-DERMATOLOGY Dermatofibroma [place], [place] [address] Social History Tobacco Use Types Packs/Day Years Used Date Smoking Tobacco: Never Smokeless Tobacco: Never Sex Assigned at Date Recorded Not on file documented as of this encounter Progress Notes Jenn Cano MD - 03/17/2022 2:20 PM EDT Images from the original note were not included. DEPARTMENT OF DERMATOLOGY [facility] Provider: Jenn Cano MD Patient's preferred name Katherynmaxwell Preferred contact method for results [x]?myDH []?Letter []?Phone: Y Detailed phone message OK? yes ?? PAST MEDICAL HISTORY If no, type N. If yes, type date, location, treatment Melanoma N Dysplastic nevi N SCC N BCC N AKs N UV Exposure & Protection N Other relevant past medical history (i.e. 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 PRE-PROCEDURE SCREENING If no, type N. If yes, include details below Allergy to lidocaine, epinephrine, Dermabond, chlorhexidine, or adhesives: N Bleeding disorder or blood thinners: N Implanted devices (Pacemaker, defibrillator, deep brain stimulator, cochlear implant): N ?? History of Present Illness: Haritha Merino is a 51 y.o. Patient returns to clinic today for a full skin exam. - She has not noted any new, growing, changing, bleeding, painful or otherwise symptomatic moles or other lesions. She has not noted any changes in any preexisting lesions. - reports a new mole on the back of her left foot, present for a few years. Denies noticing any changes. Last visit at Dermatology: 03/24/2021 Last visit with this provider: 03/24/2021 Medications: Reviewed in eD-H Allergies: Reviewed in eD-H Skin Examination: Full skin examination: Patient asked to undress to their comfort level. Verbalized that the provider's preference is that patient remove all clothing and that the provider will not examine areas patient elects to keep covered. Examination of the scalp, hair, head, face, ears, neck, chest, axillae, abdomen, back, buttocks, and upper and lower extremities was normal with the exception of the findings below. Genitalia not examined. Assessment/Plan #. History of Melanoma in situ - Patient with well healed scar on the sites listed above. Melanoma excision site scar was examined and palpated. - Continue clinical monitoring #. Benign Nevi - Scattered medium-brown macules and papules on the trunk and extremities. - Reassured of benign appearance on exam today. #. Seborrheic Keratoses - Scattered brown and flesh colored waxy stuck on plaques located on the trunk and extremities - Reassured of benign nature #. Solar Lentigines - Light-brown evenly pigmented, well-demarcated macules on sun exposed areas of the skin. - Patient reassured of benign nature. #. Diaz Angiomas - Multiple bright red, well-demarcated papules on the abdomen, chest, and back - Reassured of benign nature #. Dermatofibroma - Firm pink papule with peripheral pigmentation on the right lower leg. - Reviewed benign nature of these skin lesions. No treatment necessary. - Discussed treatment options, including punch biopsy. Informed patient that they would be trading the papule for a scar. - Patient opted for no treatment at this time. Other: ??? Sun protection discussed (protective clothing and SPF30+ broad-spectrum sunscreen) RTC: 1 yr for FSE [x]Note routed to board of education secretary []Recall placed in scheduling system []Appointment scheduled at checkout Scribe attestation: Quita Bailey [facility] has performed the documentation for this encounter in the presence of and acting as a scribe for Jenn Cano MD. I performed the above scribed service and agree with the accuracy of the documentation in this encounter. Reviewed and signed by: Jenn Cano MD Dermatology [facility] staff demonstrator electric gas appliances: Kandace Maxwell MD Dermatology [facility] Kandace Maxwell MD - 03/17/2022 2:20 PM EDT I was the supervising physician working with dermatology resident Dr. Cano in the dermatology clinic during this patient visit. The level of Resident supervision for this patient visit was indirect supervision with direct supervision immediately available. (definition: [facility] Policy Statement on [facility] Medical Education, Supervision of Graduate Medical Trainees) I was immediately available to Dr. Cano for questions and discussion regarding this visit. I have reviewed the encounter note details and level of service. KANDACE MAXWELL MD Staff Physician documented in this encounter Plan of Treatment Not on filedocumented as of this encounter Visit Diagnoses Diagnosis History of melanoma in situ Personal history of malignant melanoma o f skin Multiple benign nevi Benign neoplasm of skin, site unspecifie d Lentigines Other dyschromia Seborrheic keratosis Other seborrheic keratosis Diaz angioma Nevus, non-neoplastic Dermatofibroma Benign neoplasm of skin, site unspecifie d documented in this encounter Care Teams Web Services Developer Relationship Specialty Start Date End Date Tiana Gross MD PCP - General Family Medicine 03/24/21 [address] [place] [address] documented as of this encounter
--- NOTE | 2022-08-28 05:00 | DI.RAD_ITS ---
Exam(s) XR PORTABLE CHEST AP EXAM: XR PORTABLE CHEST AP CLINICAL HISTORY: cough. TECHNIQUE: 2D digital imaging was performed. COMPARISON: CR CHEST 2 VIEWS PA,LAT from 10/01/2011 FINDINGS: LUNGS: Clear. No pleural abnormality seen. HEART: Normal. MEDIASTINUM: Normal. OTHER FINDINGS: None. IMPRESSION: No acute pulmonary findings. DATA REPOSITORY: RADIATION DOSE DELIVERED: Total DLP
--- NOTE | 2022-08-28 05:08 | ED.GENADUL_ITS ---
Discharge Plan Disposition Patient Disposition: Home Condition: Improving Discharge Details Clinical Impression: Influenza A Primary Care Provider: Tiana Gross V ED Provider: Emir Warren Home Meds and New Rx's Prescriptions: New benzonatate 100 mg capsule 100 mg PO Q6H PRN (Reason: cough) Qty: 14 0RF Continued multivitamin [Daily Vitamin] 1 EACH tablet 1 ea PO DAILY levothyroxine 50 mcg Tablet 50 mcg PO DAILY Discharge Instructions Instructions: Influenza (ED) Additional Instructions: May use the provided albuterol inhaler, with spacer, 1 to 2 puffs every 4 hours for persistent coughing. Maintain hydration with small, frequent sips of fluids. May use provided Tessalon as needed for coughing. Tylenol and/or ibuprofen as needed for aches, pains, fever. Follow-up with your doctor if not improving in 5 to 7 days time. Return to the emergency department for any acute concern. Discharge Data Discharge Date/Time-TO BE ENTERED AT DEPARTURE: 08/28/22 06:45 Medical Decision Making 82-year-old female presents from home with days of cough, congestion and fits of coughing to the point of having posttussive emesis. She is states she has had very poor sleep as well. She arrives ER with a pulse approximately 100 with coughing, she is afebrile and oxygenating normally. A screening EKG was performed which is unremarkable. Differential diagnosis includes pneumonia, bronchitis, viral syndrome. Chest x-ray obtained and no active disease present. Patient given DuoNeb updraft with improvement of her paroxysms of cough. Sign Out No HPI General Mode of arrival: ambulatory . Date/Time Provider Initiated Documentation: 08/28/22 04:55 . Limitations to Documentation: no limitations . Information obtained by: patient . History of Present Illness 52 year old F presents to the emergency department with the chief complaint of Cough for days, described as moderate, and is localized to the chest. Patient started experiencing this day(s) and it has been intermittent. No relieving factors improve symptom(s), No exacerbating factors reported . Patient notes cough and fever/chills; denies chest pain. Patient did receive the following treatments prior to arrival, none Related Data Home Medications Medication Instructions Recorded Confirmed multivitamin (Daily Vitamin tablet) 1 ea PO DAILY 01/04/13 05/09/19 levothyroxine 50 mcg tablet 50 mcg PO DAILY 05/09/19 05/09/19 benzonatate 100 mg capsule 100 mg PO Q6H PRN cough #14 caps 08/28/22 Previous Rx's Medication Instructions Recorded benzonatate 100 mg capsule 100 mg PO Q6H PRN cough #14 caps 08/28/22 Allergies Allergy/AdvReac Type Severity Reaction Status Date / Time Sulfa (Sulfonamide Allergy Severe Hives Unverified 07/23/22 08:08 Antibiotics) adhesive Allergy Intermediate RASH, Unverified 07/23/22 08:08 REDNESS, ITCHINESS hydrocodone bitartrate AdvReac Severe Nausea Unverified 07/23/22 08:08 [From Vicodin] oxycodone HCl [From Percocet] AdvReac Severe Nausea Unverified 07/23/22 08:08 General Stated Complaint: RespSymp MIKEY: 3 Review of Systems Narrative: Posttussive emesis at home, no other significant GI upset. Cough and congestion. Subjective fevers. 7 systems reviewed and otherwise negative PFSH All Active Problems (Updated 08/28/22 @ 06:00 by Emir Warren MD) Influenza A (Acute) Corns and callosities (Acute) Medical History (Updated 08/28/22 @ 06:00 by Emir Warren MD) Allergic rhinitis Attention deficit hyperactivity disorder Hypothyroidism Malignant melanoma Obesity Surgical History (Updated 07/22/22 @ 10:34 by Marcie Delgado RN) Endometrial Ablation (12/14/07) H/O: hysterectomy History of toe surgery malignant melanoma resection: L hallux Hx of cholecystectomy Hx of tonsillectomy Previous section x 2 Social History (Updated 07/22/22 @ 10:35 by Marcie Delgado RN) Smoking/Tobacco Use Status: Never Smoking risk assessment performed?: Yes Alcohol Intake: current Alcohol Intake frequency: holidays/special occasions only Drug use: Never Household members: family Number of Children: 2 What is your relationship status?: Panel score (0-1 are the most socially isolated patients): 1 Do you feel safe at home: Yes Do you feel safe in your relationship?: Yes Exam Narrative Exam Narrative: GEN: awake, alert, oriented 3. Pleasant, well groomed, interactive. HEAD: Normocephalic, atraumatic ENT: Mucous membranes moist, oropharynx unremarkable, External ear exam unremarkable EYES: PERRL, EOMI NECK: Full ROM, no WILIAN, no menigismus CHEST/RESP: Nontender, clear to auscultation bilateral, no wheeze/rhonchi/rales, cough noted CARDIOVASCULAR: RRR, no murmur, rub hilton. 2+ Rad pulse bilateral ABDOMEN: Soft, nontender, no mass. +Bowel sounds EXT: Full ROM, no edema, no rash Neuro: Grossly normal neurologic exam, conversant, interactive. Psych: Speech fluent, thoughts congruent, affect normal Course Vital Signs Vital signs: Vital Signs Temperature 37.2 C 08/28/22 04:45 Pulse 103 H 08/28/22 04:45 Respiratory Rate 22 08/28/22 04:45 Blood Pressure 150/72 H 08/28/22 04:45 Temperature 37.2 C 08/28/22 04:45 Temperature Source Oral 08/28/22 04:45 Pulse 103 H 08/28/22 04:45 Respiratory Rate 22 08/28/22 04:45 Respiratory Effort Non-Labored 08/28/22 04:56 Respiratory Depth Normal 08/28/22 04:56 Blood Pressure 150/72 H 08/28/22 04:45 Oxygen Delivery Method Room Air 08/28/22 04:45 Oxygen Flow Rate 0 08/28/22 04:45 Pain Level 8 08/28/22 04:45 PAWSS Have you Been Recently Intoxicated or Drunk Within the Last 30 days?: No Have you Ever Experienced Previous Episodes of Alcohol Withdrawal?: No Have you ever Experienced Withdrawal Seizures?: No Have you ever Experienced Delirium Tremens(DT)s?: No Have you ever undergone Alcohol Rehabilitation Treatment (i.e, inpt ot outpatient treatment programs)?: No Have you ever Experienced Blackouts?: No Have you ever Combined Alcohol with other Downers within the last 90 days?: No Have you ever Combined Alcohol with any other Substance of Abuse during the last 90 days?: No Positive Blood Alcohol level on Presentation? [PCS.BAL]: No Evidence of Increased Autonomic Activity (i.e. HR>120, tremor, sweating, agitation, nausea)?: No Result: 0
[2022-08-28] MEDS: Benzonatate 100 MG CAP PO (05:23)
[2022-08-28 05:24] VITALS: PULSE 103; RESP 1; RESP 20; RESP 8; O2SAT 97
[2022-08-28] MEDS: Albuterol/Ipratropium 3 ML UPD VIAL UPD (05:24)
[2022-08-28 05:45] LABS: COVID-19 PCR Negative (Negative); Influenza B PCR Negative (Negative); RSV PCR Negative (Negative)
--- NOTE | 2022-08-28 05:47 | DI.VRAD_ITS ---
PROCEDURE INFORMATION: Exam: XR Chest Exam date and time: 08/28/2022 5:02 AM Age: 52 years old Clinical indication: Cough TECHNIQUE: Imaging protocol: Radiologic exam of the chest. Views: 1 view. COMPARISON: No relevant prior studies available. FINDINGS: Lungs: The lungs are clear and well aerated bilaterally. There is no consolidation, infiltrate, or pulmonary edema. The pulmonary vasculature is normal in caliber. Pleural spaces: Unremarkable. No pleural effusion or pneumothorax. Heart/Mediastinum: Heart size and cardiomediastinal contours are normal. Bones/joints: Unremarkable. IMPRESSION: No active disease in the chest. Dictated and Authenticated by: Chrissy Cotto MD. Ordering:WEI Field MD
[2022-08-28 05:55] LABS: Source Nasopharynx
[2022-08-28 05:56] LABS: Influenza A PCR Positive (Negative)
== END 2022-08-28 06:45 | disposition home or self-care (01) ==
PROVIDERS: Emergency Provider Emergency Medicine; PCP Family Medicine
DX: J10.1 Influenza due to other identified influenza virus with other respiratory manifestations (principal); E03.9 Hypothyroidism, unspecified; F90.9 Attention-deficit hyperactivity disorder, unspecified type; Z90.710 Acquired absence of both cervix and uterus; Z90.49 Acquired absence of other specified parts of digestive tract
CPT/HCPCS: 87637; 93005; 94640; 99284; 71045; 93010; 99285; J7620

== ENCOUNTER 2022-11-24 14:43 | Outpatient (REF) | payer BC, SELFPAY ==
[2022-11-24 16:06] LABS: TSH (W/Ref FT4) 1.07 uIU/mL (0.36-3.74)
[2022-11-24 16:18] LABS: Hemoglobin A1C 5.5 % (<5.7)
== END 2022-11-24 14:44 | disposition home or self-care (01) ==
LOC: NCHCN 14:43
PROVIDERS: PCP Family Medicine; Visit Provider Physician Assistant Medical
DX: E03.9 Hypothyroidism, unspecified (principal); R73.03 Prediabetes; Z00.8 Encounter for other general examination
CPT/HCPCS: 83036; 84443

== ENCOUNTER 2022-12-11 01:03 | Outpatient (CLI) | payer BC, SELFPAY ==
--- NOTE | 2022-12-11 08:00 | DI.MAMMO_ITS ---
Exam(s) MAMMO SCREENING EXAM: MAMMO SCREENING CLINICAL HISTORY: SCREENING, Z12.31 TECHNIQUE: Bilateral full field digital CC and MLO mammographic images were obtained with 3D tomosyn thesis and utilizing computer aided detection (CAD). COMPARISON: Available for comparison. FINDINGS: Masses/Architectural Distortion: There is a stable left breast nodule. No suspicious nodules or area s of architectural distortion are identified. Microcalcifications: No suspicious pleomorphic-type are seen. Skin Thickening/Nipple Retraction: None. IMPRESSION: 1. No significant interval change with no specific features of malignancy noted. 2. Unless there is more urgent need, screening mammography is recommended, as per [employer] guidelines. BI-RADS Category 1 - Negative Breast Density - Category B - Scattered areas of fibroglandular density Breast density category C or D implies that the patient has dense breast tissue. Dense breast tissue is very common and is not abnormal but dense breast tissue can make it harder to find cancer on a ma mmogram. Also, dense breast tissue may increase their breast cancer risk. This information about the result of the mammogram report was provided to the patient to raise their awareness. Use this report when you speak with the patient about their risks for breast cancer, which includes their family hist ory. At that time, you may recommend for more screening tests (Ultrasound or MRI) as they might be us eful based on their risk. A negative radiographic report should not delay biopsy if a dominant or clinically suspicious mass is present. Up to ten percent of cancers are not identified on mammography. A negative report may reinforce clinical impression. Adenosis and dense breasts may obscure an underlying neoplasm. False positive reports average 6 to 10%. Patient will receive a letter notifying them of these results.
== END 2022-12-11 01:23 ==
PROVIDERS: PCP Family Medicine; Visit Provider Physician Assistant Medical
DX: R92.2 Inconclusive mammogram (principal)
CPT/HCPCS: 77063; 77067

== ENCOUNTER 2023-08-10 11:35 | Outpatient (CLI) | payer BC, SELFPAY ==
[2023-08-10 10:14] LABS: Hemoglobin A1C 5.4 % (<5.7)
[2023-08-10 10:54] LABS: ALT 62 U/L (14-59); AST 39 U/L (15-37); Albumin 3.9 g/dL (3.4-5.0); Alkaline Phosphatase 108 U/L (46-116); Anion Gap 9.1 mmol/L (3-11); BUN 16 mg/dL (7-18); CO2 26.9 mmol/L (21.0-32.0); Calcium 9.4 mg/dL (8.5-10.1); Chloride 102 mmol/L (98-107); Estimated GFR 66.53 (mL/min/1.73m2); Glucose 100 mg/dL (74-106); Potassium 4.6 mmol/L (3.5-5.1); Sodium 138 mmol/L (136-145); Total Protein 7.3 g/dL (6.4-8.2)
[2023-08-13 12:22] LABS: Insulin, Free 23 mcIU/mL (3 - 25); Insulin, Total 25 mcIU/mL (3 - 25)
== END 2023-08-10 11:36 | disposition home or self-care (01) ==
LOC: LBO 11:37
PROVIDERS: PCP Family Medicine
DX: E66.01 Morbid (severe) obesity due to excess calories (principal); Z68.42 Body mass index [BMI] 45.0-49.9, adult
CPT/HCPCS: 36415; 80053; 83525; 83527; 83036

== ENCOUNTER 2024-06-20 22:29 | Outpatient (REF) | payer BC, SELFPAY ==
[2024-06-20 19:54] LABS: Abs Immature Grans 0.02 10^3/uL (0.0-0.06); Absolute Basophil Count 0.07 10^3/uL (0.0-0.2); Absolute Eosinophil Count 0.16 10^3/uL (0.0-0.7); Absolute Lymphocyte Count 2.85 10^3/uL (1.2-3.4); Absolute Monocyte Count 0.62 10^3/uL (0.1-0.8); Absolute Neutrophil Count 6.05 10^3/uL (1.2-6.7); Basophils % 0.7 %; Eosinophils % 1.6 %; HCT 44.8 % (36.0-46.0); HGB 14.8 g/dL (11.2-15.7); Immature Grans % 0.2 %; Lymphocytes % 29.2 %; MCH 29.1 pg (27.0-33.0); MCV 88 fL (80-95); MPV 12.5 fL (8.0-11.0); Monocytes % 6.3 %; Platelet Count 300 10^3/uL (130-400); RBC 5.08 10^6/uL (3.93-5.22); RDW 12.4 % (11.7-14.6); RDW-SD 40.4 fL; WBC 9.77 10^3/uL (4.4-10.8)
[2024-06-20 20:30] LABS: ALT 79 U/L (14-59); AST 43 U/L (15-37); Alkaline Phosphatase 110 U/L (46-116); Anion Gap 10.3 mmol/L (3-11); BUN 21 mg/dL (7-18); Bilirubin, Total 1.23 mg/dL (0.2-1.0); CO2 26.7 mmol/L (21.0-32.0); CREATININE 0.9 mg/dL (0.55-1.02); Calcium 9.4 mg/dL (8.5-10.1); Calculated LDL 142 mg/dL (<100); Chloride 102 mmol/L (98-107); Cholesterol 220 mg/dL (<200); Estimated GFR 75.03 (mL/min/1.73m2); Glucose 93 mg/dL (74-106); HDL Cholesterol 47 mg/dL (40-60); Potassium 4.5 mmol/L (3.5-5.1); Sodium 139 mmol/L (136-145); TSH (W/Ref FT4) 1.38 uIU/mL (0.36-3.74); Total Protein 7.4 g/dL (6.4-8.2); Triglyceride 157 mg/dL (<150)
[2024-06-20 21:40] LABS: Hemoglobin A1C 5.4 % (<5.7)
== END 2024-06-20 22:30 | disposition home or self-care (01) ==
LOC: NCHCN 22:29
PROVIDERS: PCP Family Medicine; Visit Provider Physician Assistant Medical
DX: E66.9 Obesity, unspecified (principal); E03.9 Hypothyroidism, unspecified; R74.01 Elevation of levels of liver transaminase levels
CPT/HCPCS: 80053; 80061; 83036; 84443; 85025

== ENCOUNTER 2025-03-13 01:20 | Outpatient (CLI) | payer BC, SELFPAY ==
--- NOTE | 2025-03-13 | DI.MAMMO_ITS ---
Exam(s) MAMMO SCREENING EXAM: MAMMO SCREENING CLINICAL HISTORY: Screening, Z12.31. TECHNIQUE: Bilateral full field digital CC and MLO mammographic images were obtained with 3D tomosyn thesis and utilizing computer aided detection (CAD). COMPARISON: Prior mammograms were reviewed. FINDINGS: There has been no significant change in the appearance and distribution of the fibroglandular tissue. Few benign-appearing nodules in the left breast are unchanged from prior mammograms. There are no new spiculated masses nor malignant appearing microcalcification groups. There is no significant architectural distortion nor skin thickening-retraction. IMPRESSION: Stable benign findings. No radiographic evidence of malignancy. BI-RADS Category 2 - Benign Findings Breast Density - Category B - There are scattered areas of fibroglandular density. Breast density Category C or D implies that the patient has dense breast tissue. Dense breast tissue can make it harder to find cancer on a mammogram. Dense breast tissue is also associated with an incr eased risk of breast cancer. This information about the result of the mammogram report was provided to the patient to raise their awareness. Use this report when you speak with the patient about their risks for breast cancer, which includes their family history. At that time, you may recommend additional screening tests (Ultrasoun d or MRI) as these tests may add significant information. A negative radiographic report should not delay biopsy if a dominant or clinically suspicious mass is present. Up to ten percent of cancers are not identified on mammography. A negative report may reinforce clinical impression. Adenosis and dense breasts may obscure an underlying neoplasm. False positive reports average 6 to 10%. Patient will receive a letter notifying them of these results.
== END 2025-03-13 01:40 ==
LOC: DI 01:20
PROVIDERS: PCP Family Medicine; Visit Provider Physician Assistant Medical
DX: Z12.31 Encounter for screening mammogram for malignant neoplasm of breast (principal); R92.323 Mammographic fibroglandular density, bilateral breasts; D24.2 Benign neoplasm of left breast
CPT/HCPCS: 77063; 77067

== ENCOUNTER 2025-05-08 16:39 | Outpatient (REF) | payer BC, SELFPAY ==
[2025-05-08 16:36] LABS: Abs Immature Grans 0.02 10^3/uL (0.0-0.06); HCT 42.6 % (36.0-46.0); HGB 14.4 g/dL (11.2-15.7); Immature Grans % 0.2 %; MCH 29.1 pg (27.0-33.0); MCHC 33.8 % (32.0-36.0); MCV 86 fL (80-95); MPV 12.9 fL (8.0-11.0); Platelet Count 264 10^3/uL (130-400); RBC 4.95 10^6/uL (3.93-5.22); RDW 12.4 % (11.7-14.6); RDW-SD 38.7 fL; WBC 9.94 10^3/uL (4.4-10.8)
[2025-05-08 17:13] LABS: ALT 59 U/L (14-59); AST 36 U/L (15-37); Albumin 3.9 g/dL (3.4-5.0); Alkaline Phosphatase 108 U/L (46-116); Anion Gap 9.3 mmol/L (3-11); BUN 23 mg/dL (7-18); Bilirubin, Total 1.1 mg/dL (0.2-1.0); CO2 25.7 mmol/L (21.0-32.0); Calcium 9.3 mg/dL (8.5-10.1); Calculated LDL 125 mg/dL (<100); Chloride 104 mmol/L (98-107); Cholesterol 211 mg/dL (<200); Estimated GFR 74.57 (mL/min/1.73m2); Glucose 99 mg/dL (74-106); HDL Cholesterol 46 mg/dL (>or=50); Potassium 3.9 mmol/L (3.5-5.1); Sodium 139 mmol/L (136-145); TSH 1.34 uIU/mL (0.36-3.74); Total Protein 7.6 g/dL (6.4-8.2); Triglyceride 202 mg/dL (<150)
[2025-05-08 19:04] LABS: Hemoglobin A1C 5.1 % (<5.7)
== END 2025-05-08 16:40 | disposition home or self-care (01) ==
LOC: NCHCN 16:39
PROVIDERS: PCP Family Medicine; Visit Provider Physician Assistant Medical
DX: E66.9 Obesity, unspecified (principal); E03.9 Hypothyroidism, unspecified; K75.81 Nonalcoholic steatohepatitis (NASH)
CPT/HCPCS: 80053; 80061; 83036; 84443; 85025